=== PATIENT | male | born 1950 | race American Indian/Alaskan Native ===

== ENCOUNTER 2017-02-15 06:55 | Inpatient (IN) | payer MEDICARE, OTHER ==
[2017-02-15] MEDS ORDERED: NACL 0.9% 1000 ML 1,000 ML IV ONE (07:37)
--- NOTE | 2017-02-15 07:37 | XRay Report ---
AP CHEST: HISTORY: Seizure, chest pain No comparison. Mild cardiomegaly is suspected. Normal pulmonary vascularity. The lungs are clear. Normal bony thorax. IMPRESSION: Mild cardiomegaly. Lungs clear.
--- NOTE | 2017-02-15 07:39 | Emergency Department Report ---
ED General Adult HPI - General Chief complaint: Seizure Stated complaint: SEIZURE X2 Time Seen by Provider: 02/15/17 07:16 Source: patient, EMS (verbal report from EMS.ems notes not available at time of chart dictation) Mode of arrival: Stretcher Limitations: Altered Mental Status - History of Present Illness Initial comments: This is a 66-year-old male. He is brought to the hospital by EMS for seizure- like activity. EMS verbally reported that the patient has a history of seizure disorder, but is noncompliant with antiepileptic drugs, or does not have access to antiepileptic drugs. There is no family available at this time. The patient does not know why he is here. He complains of headache and chest pain. There is no midline neck pain. Patient denies shortness of breath, vomiting, diaphoresis, abdominal pain. Patient cannot describe exacerbating or relieving factors. History is limited secondary to patient being altered/postictal. No family available at this time. -: unknown Location: head, chest Quality: other (as per history of present illness) Consistency: other (per history of present illness) Improves with: other (as per history of present illness) Worsens with: other (as per history of present illness) Associated Symptoms: confusion, chest pain, headaches - Related Data Home Medications Medication Instructions Recorded Confirmed Last Taken No Known Home Medications [No 02/15/17 02/15/17 Unknown Reported Home Medications] Allergies Allergy/AdvReac Type Severity Reaction Status Date / Time pork derived (porcine) Allergy Rash Verified 02/15/17 07:26 shellfish derived Allergy Hives Verified 02/15/17 07:26 ED Review of Systems ROS: Stated complaint: SEIZURE X2 Other details as noted in HPI Comment: Unobtainable due to pts medical conditions Cardiovascular: chest pain Neurological: headache, confusion, other (seizure) ED Past Medical Hx - Past Medical History Hx Hypertension: Yes Hx Seizures: Yes Additional medical history: Gout - Surgical History Past Surgical History?: No - Social History Smoking Status: Current Every Day Smoker Substance Use Type: Alcohol - Medications Home Medications: Home Medications Medication Instructions Recorded Confirmed Last Taken Type No Known Home Medications [No 02/15/17 02/15/17 Unknown History Reported Home Medications] ED Physical Exam - General Limitations: Altered Mental Status General appearance: alert, in no apparent distress - Head Head exam: Present: atraumatic, normocephalic - Eye Eye exam: Present: normal appearance, EOMI. Absent: nystagmus - ENT ENT exam: Present: normal exam, normal orophraynx, mucous membranes moist, normal external ear exam - Neck Neck exam: Present: normal inspection, full ROM. Absent: tenderness, meningismus - Respiratory Respiratory exam: Present: normal lung sounds bilaterally. Absent: respiratory distress, wheezes, rales, rhonchi, stridor, chest wall tenderness - Cardiovascular Cardiovascular Exam: Present: regular rate, normal rhythm, normal heart sounds. Absent: bradycardia, tachycardia, irregular rhythm, systolic murmur, diastolic murmur, rubs, gallop - GI/Abdominal GI/Abdominal exam: Present: soft, normal bowel sounds. Absent: distended, tenderness, guarding, rebound, rigid, pulsatile mass - Rectal Rectal exam: Present: deferred - Extremities Exam Extremities exam: Present: normal inspection, full ROM, normal capillary refill. Absent: tenderness, pedal edema, joint swelling, calf tenderness - Back Exam Back exam: Present: normal inspection, full ROM. Absent: tenderness, CVA tenderness (R), CVA tenderness (L), muscle spasm, paraspinal tenderness, vertebral tenderness - Neurological Exam Neurological exam: Present: altered (patient responds to name. Follows commands. Does not know where he is.), other (Extraocular movements intact. Tongue midline. No facial droop. Facial sensation intact to light touch in the V1, V2, V3 distribution bilaterally. 5 and 5 strength in 4 extremities.. Sensation is intact to light touch in 4 extremities.). Absent: motor sensory deficit - Psychiatric Psychiatric exam: Present: normal affect, normal mood - Skin Skin exam: Present: warm, dry, intact, normal color. Absent: rash ED Course Vital Signs 02/15/17 02/15/17 02/15/17 07:22 08:09 08:43 Temperature 98.3 F Pulse Rate 85 88 Respiratory 16 16 16 Rate Blood Pressure 158/100 Blood Pressure 177/85 [Left] O2 Sat by Pulse 98 98 99 Oximetry 02/15/17 02/15/17 02/15/17 09:16 09:20 09:30 Temperature Pulse Rate 62 67 Respiratory 15 16 14 Rate Blood Pressure 212/96 203/96 Blood Pressure [Left] O2 Sat by Pulse 100 Oximetry 02/15/17 02/15/17 09:40 10:00 Temperature Pulse Rate 65 76 Respiratory 14 16 Rate Blood Pressure 203/96 Blood Pressure 189/79 [Left] O2 Sat by Pulse 98 99 Oximetry - Reevaluation(s) Reevaluation #1: 02/15/17 08:03 Differential diagnosis: Intracranial injury, cervical spine injury, postictal state, pneumonia, acute coronary syndrome, pulmonary embolus Assessment and plan: 66-year-old male who is brought to the hospital by EMS for reported seizures, there is no family available at this time, patient is altered , and is unable to give a lucid history. He is alert to name, follows commands. There is no midline cervical spine pain or tenderness. Noncontrast CT scan of the brain and cervical spine are ordered as patient is not clearable clinically. Laboratory studies, EKG, chest x-ray, d-dimer ordered. Patient will be loaded with normal saline and keppra Reevaluation #2: 02/15/17 08:55 D-dimer elevated. Patient still altered. He does not demonstrate the ability to give informed consent. We attempted to contact the patient's family to obtain informed consent for CT scan. Nobody answered the phone, voicemail was left. I have administratively consented the patient for CT angiogram. Reevaluation #3: 02/15/17 10:20 CT scan of the chest is negative. Patient found to be markedly hypertensive with a blood pressure in the 200s. He denies chest pain now, but he is confused. He does not know the day, he does not know the year, he can't recall his name at this time. Patient most likely has a post ictal encephalopathy, possible hypertensive induced encephalopathy. Given numerous abnormalities, altered mental status, altered vital signs/abnormal vital signs, patient will be admitted for further evaluation and management. The case is discussed with the Hospital physician, Dr. Mandujano, who accepts the patient to her service. ED Medical Decision Making - Lab Data Result diagrams: 02/15/17 07:55 02/15/17 07:55 Vital Signs 02/15/17 02/15/17 02/15/17 07:22 08:09 08:43 Temperature 98.3 F Pulse Rate 85 88 Respiratory 16 16 16 Rate Blood Pressure 158/100 Blood Pressure 177/85 [Left] O2 Sat by Pulse 98 98 99 Oximetry 02/15/17 02/15/17 02/15/17 09:16 09:20 09:30 Temperature Pulse Rate 62 67 Respiratory 15 16 14 Rate Blood Pressure 212/96 203/96 Blood Pressure [Left] O2 Sat by Pulse 100 Oximetry 02/15/17 02/15/17 09:40 10:00 Temperature Pulse Rate 65 76 Respiratory 14 16 Rate Blood Pressure 203/96 Blood Pressure 189/79 [Left] O2 Sat by Pulse 98 99 Oximetry Vital Signs 02/15/17 02/15/17 02/15/17 07:22 08:09 08:43 Temperature 98.3 F Pulse Rate 85 88 Respiratory 16 16 16 Rate Blood Pressure 158/100 Blood Pressure 177/85 [Left] O2 Sat by Pulse 98 98 99 Oximetry 02/15/17 02/15/17 02/15/17 09:16 09:20 09:30 Temperature Pulse Rate 62 67 Respiratory 15 16 14 Rate Blood Pressure 212/96 203/96 Blood Pressure [Left] O2 Sat by Pulse 100 Oximetry 02/15/17 02/15/17 09:40 10:00 Temperature Pulse Rate 65 76 Respiratory 14 16 Rate Blood Pressure 203/96 Blood Pressure 189/79 [Left] O2 Sat by Pulse 98 99 Oximetry - EKG Data -: EKG Interpreted by [place] EKG shows normal: sinus rhythm Rate: normal - EKG Data When compared to previous EKG there are: previous EKG unavailable 02/15/17 08:21 normal sinus, 66 bpm, normal intervals, normal axis, motion artifact, not morphologically consistent with STEMI. - Radiology Data Radiology results: report reviewed, image reviewed X-ray of the chest is negative for acute disease CT scan of the brain negative. CT scan of the cervical spine negative. ct angio negative Critical care attestation.: If time is entered above; I have spent that time in minutes in the direct care of this critically ill patient, excluding procedure time. ED Disposition Clinical Impression: Encephalopathy, Hypertensive urgency Disposition: OP ADMITTED IP TO THIS HOSP Is pt being admited?: Yes Does the pt Need Aspirin: Yes Condition: Stable Referrals: PRIMARY CARE,MD [Primary Care Provider] - 3-5 Days
[2017-02-15] MEDS ORDERED: KEPPRA 1,000 MG/NS 0.75% 100ML 1,000 MG/100 ML BAG IV ONE ×2 (07:41→08:42)
[2017-02-15] MEDS: KEPPRA 1,000 MG in D5W 100 ML IV ONE ×2 (08:00→08:43)
[2017-02-15 08:11] LABS: Hematocrit 36.5 % (35.5-45.6); Hemoglobin 11.9 gm/dl (11.8-15.2); Mean Corpuscular HGB Conc 33 % (32-34); Mean Corpuscular Hemoglobin 29 pg (28-32); Mean Corpuscular Volume 90 fl (84-94); Platelet Count 209 K/mm3 (140-440); Red Blood Count 4.07 M/mm3 (3.65-5.03); Red Cell Distribution Width 14.2 % (13.2-15.2); White Blood Count 6.5 K/mm3 (4.5-11.0)
[2017-02-15 08:20] LABS: Urine Drugs of Abuse Note Disclamer
[2017-02-15 08:22] LABS: INR 1.03 (0.87-1.13)
[2017-02-15 08:32] LABS: Alanine Aminotransferase 8 units/L (7-56); Albumin 3.7 g/dL (3.9-5); Albumin/Globulin Ratio 0.9 %; Alkaline Phosphatase 64 units/L (35-129); Anion Gap 21 mmol/L; Bilirubin,Total 0.4 mg/dL (0.1-1.2); Blood Urea Nitrogen 18 mg/dL (9-20); Calcium 9.5 mg/dL (8.4-10.2); Carbon Dioxide 23 mmol/L (22-30); Chloride 96.7 mmol/L (98-107); Creatine Kinase 125 units/L (55-170); Glucose 135 mg/dL (75-100); Potassium 3.4 mmol/L (3.6-5.0); Sodium 137 mmol/L (137-145); Total Protein 7.9 g/dL (6.3-8.2)
[2017-02-15] MEDS ORDERED: NACL ONE (08:44)
[2017-02-15] MEDS ORDERED: K-DUR PO ONE (08:53)
--- NOTE | 2017-02-15 09:10 | Cat Scan Report ---
CT HEAD WITHOUT CONTRAST INDICATION: Seizure, altered mental status. COMPARISON: None similar. FINDINGS: Noncontrast head CT with few images repeated for motion demonstrates fairly symmetric, age-appropriate ventricles and sulci. Mild periventricular small vessel ischemic disease as also small white matter lacunar infarcts/few old ischemic changes, greatest in the left frontal lobe, axial images 23-40, series 2. No definite acute infarct, hemorrhage, mass effect or midline shift. No abnormal extra axial fluid collections. Normal posterior fossa with preserved basilar cisterns. Normal imaged eye globes. Mild bilateral maxillary and right sphenoid sinus mucosal thickening. Clear remainder imaged paranasal sinuses and temporal bone/mastoid air cells, though mastoid tips not well pneumatized. Moderate atherosclerotic internal carotid and vertebral artery calcifications. No significantly depressed skull fractures. A 1 cm heterogeneous frontal bone lesion on the left, axial image 40, series 3 without associated soft tissue component, nonspecific, presumably benign. Normal scalp soft tissues. CONCLUSION: No acute intracranial CT abnormality with few other findings, as above. Thank you for the opportunity to participate in this patient's care.
--- NOTE | 2017-02-15 09:21 | Cat Scan Report ---
CT SCAN OF THE CERVICAL SPINE: HISTORY: Seizure, neck injury after fall. TECHNIQUE: Contiguous 1.25 mm axial images of the cervical spine were obtained. Sagittal and coronal reformatted images. FINDINGS: There is normal alignment of the cervical spine. The body, pedicles and posterior ligaments appear intact. No definite acute evidence of fracture or subluxation is seen. Mild spondylosis is noted. Slightly irregular Schmorl's node along the superior endplate of C7 is noted and appears chronic. The spinal canal appears normal. The prevertebral soft tissues appear normal. IMPRESSION: No acute injury of the cervical spine is appreciated. Mild spondylosis.
--- NOTE | 2017-02-15 09:25 | Cat Scan Report ---
CTA CHEST: History: Chest pain. Technique: Helical CT following IV contrast. Pulmonary embolus protocol. Sagittal and coronal reformatted images. Rotational MIP images. NASCET criteria was utilized where appropriate. Findings: Contrast bolus is satisfactory. No pulmonary embolus is identified. There are mild chronic interstitial changes in both lungs. No evidence for pneumonia, pleural effusion or pneumothorax. No pulmonary nodule or mass. Calcified granuloma in the right lower lobe is noted. The thyroid gland, tracheobronchial tree, esophagus, heart, pericardium, mediastinal vessels, and bony thorax are unremarkable. Subtle chronic T4 compression deformity is suspected. Impression: No pulmonary embolus is identified. No acute cardiopulmonary process.
[2017-02-15 09:55] LABS: Bilirubin,Urine NEG (Negative); Blood,Urine SM (Negative); Ketones,Urine NEG (Negative); Leukocyte Esterase,Urine NEG (Negative); Nitrite,Urine NEG (Negative); Urobilinogen,Urine < 2.0 mg/dL (<2.0)
[2017-02-15] MEDS ORDERED: MAG-OX PO ONE (10:00)
[2017-02-15] MEDS ORDERED: APRESOLINE IV ONE ×2 (10:09→11:06)
[2017-02-15] MEDS ORDERED: BABY ASPIRIN PO ONE (10:23)
--- NOTE | 2017-02-15 10:42 | Admit Criteria Form ---
Admission Criteria Documentation: HYPERTENSION Clinical Indications for Admission to Inpatient Care ( Place "X" for any and all applicable criteria): Admission is indicated for ANY ONE of the following(1)(2)(3)(4): [X ]I. Hypertensive emergency, with evidence of acute and progressing target organ disease as indicated by ANY ONE of the following: [X ]a) Hypertensive encephalopathy (eg, confusion, altered mental status) [ ]b) Cerebral infarction [ ]c) Intracranial hemorrhage [ ]d) Myocardial ischemia or infarction [ ]e) Pulmonary edema [ ]f) Aortic dissection [ ]g) Seizure [ ]h) Acute renal insufficiency [ ]i) Papilledema [ ]j) Microangiopathic hemolytic anemia [ ]II. Adrenergic crisis (eg, severe hypertension due to pheochromocytoma crisis, cocaine or amphetamine intoxication, or clonidine withdrawal) [ ]III. Severe hypertension (SBP greater than 180 mmHg or DBP greater than 110 mmHg or greater than the 95th percentile for age, gender, and height in pediatric patients) that cannot be controlled (eg, to SBP less than 160 mmHg and DBP less than 100 mmHg in adults) by treatment with oral medication in emergency department or observation care Extended stay beyond goal length of stay may be needed for(11)(12)(13): [ ]a) Persistent hypertensive encephalopathy [ ]b) Continuation of pulmonary edema [ ]c) Recurring or persistent severe hypertension [ ]d) Target organ damage (eg, angina, stroke, aortic dissection) [ ]e) Associated renal insufficiency The original [employer] content created by [employer] has been revised. The portions of the content which have been revised are identified through the use of italic text or in bold, and [facility] has neither reviewed nor approved the modified material. All other unmodified content is copyright [employer]. Please see references footnoted in the original [facility] 2016 Admission Criteria Met: Yes
[2017-02-15] MEDS ORDERED: ZESTRIL PO ONE (11:08)
[2017-02-15] MEDS ORDERED: APRESOLINE IV PRN (11:08)
[2017-02-15] MEDS ORDERED: ATIVAN IV PRN (11:11)
[2017-02-15] MEDS ORDERED: ZESTRIL ONE (11:12)
--- NOTE | 2017-02-15 11:17 | History and Physical Report ---
History of Present Illness Date of examination: 02/15/17 Date of admission: 02/15/17 Chief complaint: Witnessed seizure, altered level of consciousness History of present illness: 66-year-old -[place] male patient with significant past medical history of hypertension seizure disorder noncompliant with medications had seizures 2 witnessed by the family with altered level of consciousness Patient was brought to the emergency room noted to be postictal and confused When I evaluated the patient family was at the bedside, they report the patient is noncompliant with all his medications as he cannot afford them They witnessed 2 episodes of seizure with altered level of consciousness, and bladder and bowel incontinence Patient is responding to simple questions Denies any chest pain or shortness of breath, complains of mild headache and dizziness Initial workup revealed malignant hypertension with systolic blood pressures more than 200, received IV antihypertensives with mild improvement Denies any nausea vomiting Denies any fever or urinary symptoms 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 denies: prescription drug abuse Family history: hypertension Medications and Allergies Allergies Allergy/AdvReac Type Severity Reaction Status Date / Time pork derived (porcine) Allergy Rash Verified 02/15/17 07:26 shellfish derived Allergy Hives Verified 02/15/17 07:26 Home Medications Medication Instructions Recorded Confirmed Last Taken Type No Known Home Medications [No 02/15/17 02/15/17 Unknown History Reported Home Medications] Active Meds: Active Medications Hydralazine HCl (Apresoline) 25 mg PO Q8HR TIERRA Hydralazine HCl (Apresoline) 10 mg IV Q4HR PRN PRN Reason: Hypertension Lisinopril (Zestril) 20 mg PO ONCE ONE Stop: 02/15/17 11:09 Lisinopril (Zestril) 20 mg PO QDAY TIERRA Lorazepam (Ativan) 1 mg IV Q4H PRN PRN Reason: Seizures Metoprolol Tartrate (Lopressor) 25 mg PO BID [facility] Review of Systems Constitutional: no weight loss, no weight gain, no fever, no chills Ears, nose, mouth and throat: no nasal congestion, no nasal discharge Cardiovascular: lightheadedness, no chest pain, no orthopnea, no palpitations Gastrointestinal: no abdominal pain, no nausea, no vomiting Genitourinary Male: no dysuria, no hematuria Musculoskeletal: no myalgias, no arthritis Integumentary: no rash, no lesions Neurological: weakness, seizures, confusion Psychiatric: no anxiety, no depression Endocrine: no cold intolerance, no heat intolerance, no polydipsia, no polyuria Hematologic/Lymphatic: no easy bruising, no easy bleeding Allergic/Immunologic: no urticaria, no allergic rhinitis Exam - Constitutional Vitals: Temp Pulse Resp BP Pulse Ox 98.3 F 72 16 207/104 99 02/15/17 07:22 02/15/17 10:28 02/15/17 10:00 02/15/17 10:28 02/15/17 10:00 General appearance: Present: mild distress, well-nourished, obese - EENT Eyes: Present: PERRL, EOM intact - Neck Neck: Present: supple, normal ROM - Respiratory Respiratory effort: normal Respiratory: bilateral: diminished, negative: rales, rhonchi, wheezing - Cardiovascular Rhythm: regular Heart Sounds: Present: S1 & S2 - Extremities Extremities: no ischemia, pulses intact, pulses symmetrical Peripheral Pulses: within normal limits - Abdominal General gastrointestinal: Present: soft, non-tender, non-distended, normal bowel sounds - Integumentary Integumentary: Present: clear, warm - Musculoskeletal Musculoskeletal: strength equal bilaterally - Psychiatric Psychiatric: appropriate mood/affect, other (drowsy) - Neurologic Neurologic: CNII-XII intact, moves all extremities Results - Labs CBC & Chem 7: 02/15/17 07:55 02/15/17 07:55 Labs: Abnormal lab results 02/15/17 02/15/17 02/15/17 Range/Units 07:55 07:55 07:55 D-Dimer 406.16 H (0-234) ng/mlDDU Potassium 3.4 L (3.6-5.0) mmol/L Chloride 96.7 L (98-107) mmol/L Glucose 135 H (75-100) mg/dL Magnesium 1.6 L (1.7-2.3) mg/dL Albumin 3.7 L (3.9-5) g/dL Assessment and Plan --Altered level of consciousness/metabolic encephalopathy Probably secondary to seizures and postictal phase neuro check Seizure precautions -- witnessed seizure Seizure precautions, Ativan as needed, IV Keppra Counseling done patient strongly advised to comply with medications --Malignant hypertension Multiple antihypertensive medications, when necessary hydralazine Closely monitor --Hypokalemia Replenish per protocol and monitor levels --Hypomagnesemia Replenish per protocol and monitor levels --Ongoing tobacco use Smoking cessation counseling done patient advised nicotine patch --DVT prophylaxis With Lovenox With closely monitor the patient and adjust the management as needed Neurology consultation if indicated --Full CODE STATUS Plan of care discussed with the patient family members at the bedside ER physician and the nurse Disposition admitted to telemetry, possible discharge in 1-2 days if stable
[2017-02-15] MEDS ORDERED: ZESTRIL PO NR (12:00)
[2017-02-15] MEDS: APRESOLINE PO SCH ×2 (15:54→21:29)
[2017-02-15] MEDS: LOPRESSOR PO SCH (21:29)
[2017-02-15] MEDS: KEPPRA 1,000 MG in D5W 100 ML IV SCH (22:59)
[2017-02-16] MEDS: APRESOLINE PO SCH ×3 (05:40→21:44)
[2017-02-16 06:32] LABS: Anion Gap 19 mmol/L; BUN/Creatinine Ratio 13.07; Blood Urea Nitrogen 17 mg/dL (9-20); Calcium 9.7 mg/dL (8.4-10.2); Carbon Dioxide 26 mmol/L (22-30); Chloride 101.8 mmol/L (98-107); Glucose 80 mg/dL (75-100); Magnesium 1.8 mg/dL (1.7-2.3); Phosphorous 2.7 mg/dL (2.5-4.5); Potassium 3.6 mmol/L (3.6-5.0); Sodium 143 mmol/L (137-145)
[2017-02-16 06:33] LABS: Basophils % (Auto) 0.7 % (0.0-1.8); Eosinophils % (Auto) 1.7 % (0.0-4.3); Hematocrit 38.8 % (35.5-45.6); Hemoglobin 12.2 gm/dl (11.8-15.2); Mean Corpuscular HGB Conc 32 % (32-34); Mean Corpuscular Hemoglobin 29 pg (28-32); Mean Corpuscular Volume 92 fl (84-94); Platelet Count 218 K/mm3 (140-440); Red Blood Count 4.23 M/mm3 (3.65-5.03); Red Cell Distribution Width 14.6 % (13.2-15.2); White Blood Count 7.1 K/mm3 (4.5-11.0)
[2017-02-16] MEDS: KEPPRA 1,000 MG in D5W 100 ML IV SCH (10:34)
[2017-02-16] MEDS: LOPRESSOR PO SCH ×2 (10:34→21:44)
[2017-02-16] MEDS: ZESTRIL PO SCH (10:35)
[2017-02-16] MEDS: LOVENOX SUB-Q SCH (10:36)
[2017-02-16] MEDS ORDERED: FLUARIX QUAD 2016-2017(36 MOS+) IM ONE (12:00)
[2017-02-16] MEDS ORDERED: PNEUMOVAX 23 IM ONE (12:00)
--- NOTE | 2017-02-16 16:39 | Progress Note ---
Assessment and Plan Assessment and plan: --Altered level of consciousness/metabolic encephalopathy Postictal phase , now completely resolved, back to baseline Seizure precautions -- witnessed seizure Seizure precautions, Ativan as needed, change to by mouth Keppra Counseling done patient strongly advised to comply with medications --Malignant hypertension, well controlled Continue current antihypertensive medications, when necessary hydralazine --Hypokalemia / Hypomagnesemia :corrected --Ongoing tobacco use Smoking cessation counseling done patient advised nicotine patch --DVT prophylaxis, With Lovenox --Full CODE STATUS Plan of care discussed with the patient and his nurse DC planning. Case management Possible discharge in 1-2 days with home health when necessary History Interval history: Patient seen and evaluated medical records reviewed No new events reported by the nursing staff Patient feels better no new episodes of seizures Alert and awake responding appropriately Not in acute distress Hospitalist Physical - Constitutional Vitals: Temp Pulse Resp BP Pulse Ox 98.8 F 66 18 107/71 98 02/16/17 15:21 02/16/17 15:51 02/16/17 15:21 02/16/17 15:21 02/16/17 15:21 General appearance: Present: no acute distress, well-nourished, obese - EENT Eyes: Present: PERRL, EOM intact - Neck Neck: Present: supple, normal ROM - Respiratory Respiratory effort: normal Respiratory: bilateral: diminished, negative: rales, rhonchi, wheezing - Cardiovascular Rhythm: regular Heart Sounds: Present: S1 & S2 - Extremities Extremities: no ischemia, pulses intact, pulses symmetrical Peripheral Pulses: within normal limits - Abdominal General gastrointestinal: soft, non-tender, non-distended, normal bowel sounds - Integumentary Integumentary: Present: clear, warm - Psychiatric Psychiatric: appropriate mood/affect, cooperative - Neurologic Neurologic: CNII-XII intact, moves all extremities Results - Labs CBC & Chem 7: 02/16/17 04:59 02/16/17 04:59 Labs: Laboratory Last Values WBC 7.1 K/mm3 (4.5-11.0) 02/16/17 04:59 RBC 4.23 M/mm3 (3.65-5.03) 02/16/17 04:59 Hgb 12.2 gm/dl (11.8-15.2) 02/16/17 04:59 Hct 38.8 % (35.5-45.6) 02/16/17 04:59 MCV 92 fl (84-94) 02/16/17 04:59 MCH 29 pg (28-32) 02/16/17 04:59 MCHC 32 % (32-34) 02/16/17 04:59 RDW 14.6 % (13.2-15.2) 02/16/17 04:59 Plt Count 218 K/mm3 (140-440) 02/16/17 04:59 Lymph % (Auto) 35.2 % (13.4-35.0) H 02/16/17 04:59 [place] % (Auto) 10.8 % (0.0-7.3) H 02/16/17 04:59 Eos % (Auto) 1.7 % (0.0-4.3) 02/16/17 04:59 Baso % (Auto) 0.7 % (0.0-1.8) 02/16/17 04:59 Lymph # 2.5 K/mm3 (1.2-5.4) 02/16/17 04:59 [place] # 0.8 K/mm3 (0.0-0.8) 02/16/17 04:59 Eos # 0.1 K/mm3 (0.0-0.4) 02/16/17 04:59 Baso # 0.1 K/mm3 (0.0-0.1) 02/16/17 04:59 Seg Neutrophils % 51.6 % (40.0-70.0) 02/16/17 04:59 Seg Neutrophils # 3.7 K/mm3 (1.8-7.7) 02/16/17 04:59 PT 13.4 Sec. (12.2-14.9) 02/15/17 07:55 INR 1.03 (0.87-1.13) 02/15/17 07:55 D-Dimer 406.16 ng/mlDDU (0-234) H 02/15/17 07:55 Sodium 143 mmol/L (137-145) 02/16/17 04:59 Potassium 3.6 mmol/L (3.6-5.0) 02/16/17 04:59 Chloride 101.8 mmol/L (98-107) 02/16/17 04:59 Carbon Dioxide 26 mmol/L (22-30) 02/16/17 04:59 Anion Gap 19 mmol/L 02/16/17 04:59 BUN 17 mg/dL (9-20) 02/16/17 04:59 Creatinine 1.3 mg/dL (0.8-1.5) 02/16/17 04:59 Estimated GFR > 60 ml/min 02/16/17 04:59 BUN/Creatinine Ratio 13.07 % 02/16/17 04:59 Glucose 80 mg/dL (75-100) 02/16/17 04:59 Calcium 9.7 mg/dL (8.4-10.2) 02/16/17 04:59 Phosphorus 2.7 mg/dL (2.5-4.5) 02/16/17 04:59 Magnesium 1.8 mg/dL (1.7-2.3) 02/16/17 04:59 Total Bilirubin 0.4 mg/dL (0.1-1.2) 02/15/17 07:55 AST 22 units/L (5-40) 02/15/17 07:55 ALT 8 units/L (7-56) 02/15/17 07:55 Alkaline Phosphatase 64 units/L (35-129) 02/15/17 07:55 Total Creatine Kinase 125 units/L (55-170) 02/15/17 07:55 Troponin T < 0.010 ng/mL (0.00-0.029) 02/15/17 10:20 Total Protein 7.9 g/dL (6.3-8.2) 02/15/17 07:55 Albumin 3.7 g/dL (3.9-5) L 02/15/17 07:55 Albumin/Globulin Ratio 0.9 % 02/15/17 07:55 Urine Color Yellow (Yellow) 02/15/17 Unknown Urine Turbidity Clear (Clear) 02/15/17 Unknown Urine pH 6.0 (5.0-7.0) 02/15/17 Unknown Ur Specific [place] 1.013 (1.003-1.030) 02/15/17 Unknown Urine Protein 100 mg/dl mg/dL (Negative) 02/15/17 Unknown Urine Glucose (UA) 150 mg/dL (Negative) 02/15/17 Unknown Urine Ketones Neg mg/dL (Negative) 02/15/17 Unknown Urine Blood Sm (Negative) 02/15/17 Unknown Urine Nitrite Neg (Negative) 02/15/17 Unknown Urine Bilirubin Neg (Negative) 02/15/17 Unknown Urine Urobilinogen < 2.0 mg/dL (<2.0) 02/15/17 Unknown Ur Leukocyte Esterase Neg (Negative) 02/15/17 Unknown Urine WBC (Auto) 2.0 /HPF (0.0-6.0) 02/15/17 Unknown Urine RBC (Auto) 1.0 /HPF (0.0-6.0) 02/15/17 Unknown U Epithel Cells (Auto) 2.0 /HPF (0-13.0) 02/15/17 Unknown Urine Opiates Screen Presumptive negative 02/15/17 Unknown Urine Methadone Screen Presumptive negative 02/15/17 Unknown Ur Barbiturates Screen Presumptive negative 02/15/17 Unknown Ur Phencyclidine Scrn Presumptive negative 02/15/17 Unknown Ur Amphetamines Screen Presumptive negative 02/15/17 Unknown U Benzodiazepines Scrn Presumptive negative 02/15/17 Unknown Urine Cocaine Screen Presumptive negative 02/15/17 Unknown U Marijuana (THC) Screen Presumptive negative 02/15/17 Unknown Drugs of Abuse Note Disclamer 02/15/17 Unknown Plasma/Serum Alcohol < 0.01 gm% (0-0.07) 02/15/17 07:55
[2017-02-16] MEDS: KEPPRA PO SCH (21:44)
[2017-02-17] MEDS ORDERED: TYLENOL PO PRN (06:13)
[2017-02-17] MEDS: APRESOLINE PO SCH (06:28)
[2017-02-17 08:34] VITALS: BP 135/100
[2017-02-17] MEDS: KEPPRA PO SCH (10:13)
[2017-02-17] MEDS: LOPRESSOR PO SCH (10:14)
[2017-02-17] MEDS: LOVENOX SUB-Q SCH (10:15)
[2017-02-17] MEDS: ZESTRIL PO SCH (10:16)
--- NOTE | 2017-02-17 10:34 | Discharge Summary ---
Providers - Providers Date of Admission: 02/15/17 12:57 Date of discharge: 02/17/17 Attending physician: BENNIE OLVERA 02/15/17 16:47 Physical Therapy Evaluation and Treat [CONS] Routine Comment: Reason For Exam: altered level of consciousness/resolved Primary care physician: [employer] Hospitalization Reason for admission: witnessed seizure Condition: Stable Pertinent studies: CT head without contrast; no acute intracranial abnormality, incidental findings CT cervical spine; no acute injury, mild spondylosis Chest x-ray; mild cardiomegaly CT chest; no PE Hospital course: 66-year-old -[place] male patient with significant past medical history of hypertension seizure disorder noncompliant with medication had seizures 2 witnessed by the family as well as altered level of consciousness Patient was brought to the emergency room noted to be postictal with confusion, noted to have malignant hypertension systolic blood pressures more than 200 Patient was admitted to the hospital, had extensive evaluation with CT head without contrast CT neck CT angiogram of the chest as well as chest x-ray The above test did not show any acute abnormalities Patient was placed on seizure precautions, started on antiseizure medications As well as multiple antihypertensives, blood pressures closely monitored and medications optimized Symptoms significantly improved, patient did not have any new episodes of seizure or dizziness or syncope, ambulatory and tolerating oral nutrition Patient's blood pressure subfloor to moderate control Today he is comfortable in bed alert awake oriented 3 not in acute distress Vital signs are stable, [id number] evaluation and physical examination done by me prior to discharge is unremarkable as detailed below Has history of ongoing tobacco use smoking cessation counseling done patient strongly advised to quit tobacco use advised nicotine patch as needed Patient advised not to drive or operate heavy machinery as detailed cleared by primary care physician in view of seizure disorder If you should have headache dizziness syncope or seizures advised to contact M.D. or go to emergency room Patient verbalized understanding Final diagnosis; Witnessed seizures 2 Toxic metabolic encephalopathy Hypokalemia and hypomagnesemia corrected Malignant hypertension well-controlled Ongoing tobacco use Obesity Medical noncompliance with medications Disposition: DISCHARGED TO HOME OR SELFCARE Time spent for discharge: 32 min Core Measure Documentation - Palliative Care Palliative Care/ Comfort Measures: Not Applicable - Core Measures Any of the following diagnoses?: none Exam - Constitutional Vitals: Temp Pulse Resp BP Pulse Ox 99.2 F 107 H 20 135/100 98 02/17/17 08:33 02/17/17 08:33 02/17/17 08:33 02/17/17 08:33 02/17/17 08:33 General appearance: Present: no acute distress, well-nourished - EENT Eyes: Present: PERRL, EOM intact - Neck Neck: Present: supple, normal ROM - Respiratory Respiratory effort: normal Respiratory: bilateral: diminished, negative: rales, rhonchi, wheezing - Cardiovascular Rhythm: regular Heart Sounds: Present: S1 & S2 - Extremities Extremities: no ischemia, pulses intact, pulses symmetrical Peripheral Pulses: within normal limits - Abdominal General gastrointestinal: Present: soft, non-tender, non-distended, normal bowel sounds - Integumentary Integumentary: Present: clear, warm - Musculoskeletal Musculoskeletal: strength equal bilaterally - Psychiatric Psychiatric: appropriate mood/affect, cooperative - Neurologic Neurologic: CNII-XII intact, moves all extremities Plan Activity: advance as tolerated, no driving until cleared by PCP, other (seizure precautions) Diet: low salt Additional Instructions: f/u private Neurologist 1-2 weeks Follow up with: PRIMARY CARE, [Primary Care Provider] - 3-5 Days Prescriptions: hydrALAZINE [Apresoline TAB] 25 mg PO Q8HR #90 tablet levETIRAcetam [Keppra TAB] 1,000 mg PO BID #60 tablet Lisinopril [Zestril TAB] 20 mg PO QDAY #30 tablet Metoprolol [Lopressor TAB] 25 mg PO BID #60 tablet
== END 2017-02-17 11:30 | disposition home or self-care (01) | DRG 100 ==
LOC: ED 06:55 → 4A 12:57
PROVIDERS: ADMIT Internal Medicine; ATTEND Internal Medicine
PROC: 3E0234Z Introduction of Serum, Toxoid and Vaccine into Muscle, Percutaneous Approach (ICD-10-PCS; principal; 2017-02-16)
DX: G40.909 Epilepsy, unspecified, not intractable, without status epilepticus (principal); G92 Toxic encephalopathy; I16.0 Hypertensive urgency; M10.9 Gout, unspecified; F17.210 Nicotine dependence, cigarettes, uncomplicated; E87.6 Hypokalemia; E83.42 Hypomagnesemia; E66.9 Obesity, unspecified; Z68.38 Body mass index [BMI] 38.0-38.9, adult; Z23 Encounter for immunization; Z91.14 Patient's other noncompliance with medication regimen; Z91.013 Allergy to seafood; Z91.018 Allergy to other foods; Z82.49 Family history of ischemic heart disease and other diseases of the circulatory system
CPT/HCPCS: 36415; 70450; 71010; 71275; 72125; 80048; 80053; 80307; 80320; 81001; 82550; 83735; 84100; 84484; 85025; 85027; 85379; 85610; 90686; 90732; 93005; 93010; 96361; 96374; 96375; G0480; J0360; J1650; J1953; J7030; Q9967

== ENCOUNTER 2019-03-20 07:33 | Emergency (ER) | payer MEDICARE ==
[2019-03-20] MEDS ORDERED: KEPPRA 1,000 MG/NS 0.75% 100ML 1,000 MG/100 ML BAG IV ONE ×2 (07:40→07:44)
--- NOTE | 2019-03-20 07:46 | Emergency Department Report ---
ED Seizure HPI - General Chief Complaint: Seizure Stated Complaint: CONVULSIONS Time Seen by Provider: 03/20/19 07:40 Source: EMS, old records reviewed Mode of arrival: Stretcher Limitations: Other - History of Present Illness Initial Comments: 68-year-old male with past medical history seizures, hypertension, and gout presents to the hospital status post seizures. Patient had 3 seizures today including seizure after arrival. He did not receive any medications in route to the hospital. History of seizures with med noncompliance since September. Zev rondon is currently post ictal. Daughter provided history over the phone to RN. - Related Data Previous Rx's Medication Instructions Recorded Last Taken Type Lisinopril [Zestril TAB] 20 mg PO QDAY #30 tablet 02/17/17 Unknown Rx Metoprolol [Lopressor TAB] 25 mg PO BID #60 tablet 02/17/17 Unknown Rx Potassium Chloride [K-Dur] 20 meq PO BID #6 tab 03/20/19 Unknown Rx hydrALAZINE [Apresoline TAB] 25 mg PO Q8HR #90 tablet 03/20/19 Unknown Rx levETIRAcetam [Keppra TAB] 1,000 mg PO BID #60 tablet 03/20/19 Unknown Rx Allergies Allergy/AdvReac Type Severity Reaction Status Date / Time pork derived (porcine) Allergy Rash Verified 02/15/17 07:26 shellfish derived Allergy Hives Verified 02/15/17 07:26 ED Review of Systems ROS: Stated complaint: CONVULSIONS Other details as noted in HPI Comment: Unobtainable due to pts medical conditions ED Past Medical Hx - Past Medical History Hx Hypertension: Yes Hx Seizures: Yes Additional medical history: Gout - Social History Smoking Status: Current Every Day Smoker - Medications Home Medications: Home Medications Medication Instructions Recorded Confirmed Last Taken Type Lisinopril [Zestril TAB] 20 mg PO QDAY #30 tablet 02/17/17 Unknown Rx Metoprolol [Lopressor TAB] 25 mg PO BID #60 tablet 02/17/17 Unknown Rx Potassium Chloride [K-Dur] 20 meq PO BID #6 tab 03/20/19 Unknown Rx hydrALAZINE [Apresoline TAB] 25 mg PO Q8HR #90 tablet 03/20/19 Unknown Rx levETIRAcetam [Keppra TAB] 1,000 mg PO BID #60 tablet 03/20/19 Unknown Rx ED Physical Exam - General Limitations: Other - Other Other exam information: General: No limitations, patient is alert in no acute distress Head exam: Atraumatic, normocephalic Eyes exam: Normal appearance, pupils equal reactive to light, extraocular movements intact ENT: Moist mucous membrane, normal oropharynx Neck exam: Normal inspection, full range of motion, no meningismus nontender Respiratory exam: Clear to auscultation bilateral, no wheezes, rales, crackles Cardiovascular: Normal rate and rhythm, normal heart sounds Abdomen: Soft, nondistended, and nontender, with normal bowel sounds, no rebound, or guarding Extremity: Full range of motion normal inspection no deformity Back: Normal Inspection, full range of motion, no tenderness Neurologic: Initially postictal with later became Alert, oriented x3, cranial nerves intact, no motor or sensory deficit Psychiatric: normal affect, normal mood Skin: Warm, dry, intact ED Course Vital Signs 03/20/19 03/20/19 03/20/19 07:38 07:50 07:51 Temperature Pulse Rate 94 H 95 H Respiratory 15 17 Rate Blood Pressure 227/118 O2 Sat by Pulse 97 97 Oximetry 03/20/19 03/20/19 03/20/19 08:01 08:15 08:17 Temperature 98.9 F Pulse Rate 96 H 97 H Respiratory 15 18 Rate Blood Pressure 153/104 153/104 O2 Sat by Pulse 97 94 Oximetry 03/20/19 03/20/19 03/20/19 08:30 08:45 09:00 Temperature Pulse Rate 93 H 89 82 Respiratory 15 13 13 Rate Blood Pressure 188/107 199/112 198/107 O2 Sat by Pulse 96 95 97 Oximetry 03/20/19 03/20/19 03/20/19 09:15 09:30 09:45 Temperature Pulse Rate 93 H 97 H 85 Respiratory 13 15 15 Rate Blood Pressure 194/97 207/108 218/132 O2 Sat by Pulse 93 95 97 Oximetry 03/20/19 03/20/19 03/20/19 10:00 10:15 10:30 Temperature Pulse Rate 84 84 81 Respiratory 14 13 14 Rate Blood Pressure 192/93 192/93 198/103 O2 Sat by Pulse 91 96 98 Oximetry 03/20/19 03/20/19 03/20/19 10:45 11:00 11:15 Temperature Pulse Rate 84 83 85 Respiratory 13 12 13 Rate Blood Pressure 198/103 198/103 198/103 O2 Sat by Pulse 98 96 95 Oximetry 03/20/19 03/20/19 03/20/19 11:30 11:45 12:00 Temperature Pulse Rate 94 H 87 96 H Respiratory 13 13 15 Rate Blood Pressure 198/98 198/98 196/104 O2 Sat by Pulse 98 97 96 Oximetry 03/20/19 03/20/19 03/20/19 12:15 12:30 12:43 Temperature 99.3 F Pulse Rate 95 H 96 H Respiratory 14 18 Rate Blood Pressure 196/104 196/104 O2 Sat by Pulse 97 98 Oximetry 03/20/19 03/20/19 03/20/19 12:46 12:48 13:00 Temperature Pulse Rate 95 H 88 95 H Respiratory 22 21 Rate Blood Pressure 199/94 199/94 202/100 O2 Sat by Pulse 98 95 Oximetry 03/20/19 03/20/19 03/20/19 13:16 13:30 13:57 Temperature Pulse Rate 83 98 H 95 H Respiratory 13 15 16 Rate Blood Pressure 202/100 186/105 186/105 O2 Sat by Pulse 96 97 95 Oximetry 03/20/19 03/20/19 03/20/19 14:00 14:16 14:30 Temperature Pulse Rate 90 90 85 Respiratory 18 17 17 Rate Blood Pressure 210/101 210/101 180/104 O2 Sat by Pulse 95 97 98 Oximetry 03/20/19 03/20/19 14:46 15:00 Temperature Pulse Rate 87 97 H Respiratory 14 22 Rate Blood Pressure 180/104 174/89 O2 Sat by Pulse 97 96 Oximetry - Reevaluation(s) Reevaluation #1: 03/20/19 12:46 Family members at the bedside. Patient alert. Currently at baseline mental status as per family. Now complains of abdominal pain since seizure. No reports of nausea vomiting. Initial anion gap noted which could be blood gases secondary to seizures. Additional labs ordered including alcohol and lactic acid. CT abdomen and pelvis pending. ED Medical Decision Making - Lab Data Result diagrams: 03/20/19 07:47 03/20/19 12:46 Lab Results 03/20/19 03/20/19 03/20/19 Range/Units 07:47 07:47 12:46 WBC 8.5 (4.5-11.0) K/mm3 RBC 3.40 L (3.65-5.03) M/mm3 Hgb 10.3 L (11.8-15.2) gm/dl Hct 32.6 L (35.5-45.6) % MCV 96 H (84-94) fl MCH 30 (28-32) pg MCHC 32 (32-34) % RDW 16.7 H (13.2-15.2) % Plt Count 225 (140-440) K/mm3 Lymph % (Auto) 9.6 L (13.4-35.0) % [place] % (Auto) 3.7 (0.0-7.3) % Eos % (Auto) 0.0 (0.0-4.3) % Baso % (Auto) 0.7 (0.0-1.8) % Lymph # 0.8 L (1.2-5.4) K/mm3 [place] # 0.3 (0.0-0.8) K/mm3 Eos # 0.0 (0.0-0.4) K/mm3 Baso # 0.1 (0.0-0.1) K/mm3 Seg Neutrophils % 86.0 H (40.0-70.0) % Seg Neutrophils # 7.3 (1.8-7.7) K/mm3 Sodium 143 141 (137-145) mmol/L Potassium 3.5 L 3.1 L (3.6-5.0) mmol/L Chloride 97.8 L 97.9 L (98-107) mmol/L Carbon Dioxide 15 L 26 D (22-30) mmol/L Anion Gap 34 20 mmol/L BUN 15 12 (9-20) mg/dL Creatinine 1.1 0.8 (0.8-1.5) mg/dL Estimated GFR > 60 > 60 ml/min BUN/Creatinine Ratio 14 15 % Glucose 206 H 92 (75-100) mg/dL Lactic Acid (0.7-2.0) mmol/L Calcium 8.8 8.7 (8.4-10.2) mg/dL Magnesium 1.20 L (1.7-2.3) mg/dL Total Bilirubin 0.50 (0.1-1.2) mg/dL Direct Bilirubin < 0.2 (0-0.2) mg/dL Indirect Bilirubin 0.3 mg/dL AST 41 H (5-40) units/L ALT 10 (7-56) units/L Alkaline Phosphatase 67 (35-129) units/L Total Protein 8.7 H (6.3-8.2) g/dL Albumin 3.9 (3.9-5) g/dL Albumin/Globulin Ratio 0.8 % Lipase 33 (13-60) units/L Urine Color (Yellow) Urine Turbidity (Clear) Urine pH (5.0-7.0) Ur Specific [place] (1.003-1.030) Urine Protein (Negative) mg/dL Urine Glucose (UA) (Negative) mg/dL Urine Ketones (Negative) mg/dL Urine Blood (Negative) Urine Nitrite (Negative) Urine Bilirubin (Negative) Urine Urobilinogen (<2.0) mg/dL Ur Leukocyte Esterase (Negative) Urine WBC (Auto) (0.0-6.0) /HPF Urine RBC (Auto) (0.0-6.0) /HPF U Epithel Cells (Auto) (0-13.0) /HPF Urine Opiates Screen Urine Methadone Screen Ur Barbiturates Screen Ur Phencyclidine Scrn Ur Amphetamines Screen U Benzodiazepines Scrn Urine Cocaine Screen U Marijuana (THC) Screen Drugs of Abuse Note Plasma/Serum Alcohol (0-0.07) % 03/20/19 03/20/19 03/20/19 Range/Units 12:54 12:54 Unknown WBC (4.5-11.0) K/mm3 RBC (3.65-5.03) M/mm3 Hgb (11.8-15.2) gm/dl Hct (35.5-45.6) % MCV (84-94) fl MCH (28-32) pg MCHC (32-34) % RDW (13.2-15.2) % Plt Count (140-440) K/mm3 Lymph % (Auto) (13.4-35.0) % [place] % (Auto) (0.0-7.3) % Eos % (Auto) (0.0-4.3) % Baso % (Auto) (0.0-1.8) % Lymph # (1.2-5.4) K/mm3 [place] # (0.0-0.8) K/mm3 Eos # (0.0-0.4) K/mm3 Baso # (0.0-0.1) K/mm3 Seg Neutrophils % (40.0-70.0) % Seg Neutrophils # (1.8-7.7) K/mm3 Sodium (137-145) mmol/L Potassium (3.6-5.0) mmol/L Chloride (98-107) mmol/L Carbon Dioxide (22-30) mmol/L Anion Gap mmol/L BUN (9-20) mg/dL Creatinine (0.8-1.5) mg/dL Estimated GFR ml/min BUN/Creatinine Ratio % Glucose (75-100) mg/dL Lactic Acid 1.40 (0.7-2.0) mmol/L Calcium (8.4-10.2) mg/dL Magnesium (1.7-2.3) mg/dL Total Bilirubin (0.1-1.2) mg/dL Direct Bilirubin (0-0.2) mg/dL Indirect Bilirubin mg/dL AST (5-40) units/L ALT (7-56) units/L Alkaline Phosphatase (35-129) units/L Total Protein (6.3-8.2) g/dL Albumin (3.9-5) g/dL Albumin/Globulin Ratio % Lipase (13-60) units/L Urine Color Straw (Yellow) Urine Turbidity Clear (Clear) Urine pH 7.0 (5.0-7.0) Ur Specific [place] 1.009 (1.003-1.030) Urine Protein 100 mg/dl (Negative) mg/dL Urine Glucose (UA) 50 (Negative) mg/dL Urine Ketones Neg (Negative) mg/dL Urine Blood Mod (Negative) Urine Nitrite Neg (Negative) Urine Bilirubin Neg (Negative) Urine Urobilinogen < 2.0 (<2.0) mg/dL Ur Leukocyte Esterase Neg (Negative) Urine WBC (Auto) < 1.0 (0.0-6.0) /HPF Urine RBC (Auto) < 1.0 (0.0-6.0) /HPF U Epithel Cells (Auto) < 1.0 (0-13.0) /HPF Urine Opiates Screen Urine Methadone Screen Ur Barbiturates Screen Ur Phencyclidine Scrn Ur Amphetamines Screen U Benzodiazepines Scrn Urine Cocaine Screen U Marijuana (THC) Screen Drugs of Abuse Note Plasma/Serum Alcohol < 0.01 (0-0.07) % 03/20/19 Range/Units Unknown WBC (4.5-11.0) K/mm3 RBC (3.65-5.03) M/mm3 Hgb (11.8-15.2) gm/dl Hct (35.5-45.6) % MCV (84-94) fl MCH (28-32) pg MCHC (32-34) % RDW (13.2-15.2) % Plt Count (140-440) K/mm3 Lymph % (Auto) (13.4-35.0) % [place] % (Auto) (0.0-7.3) % Eos % (Auto) (0.0-4.3) % Baso % (Auto) (0.0-1.8) % Lymph # (1.2-5.4) K/mm3 [place] # (0.0-0.8) K/mm3 Eos # (0.0-0.4) K/mm3 Baso # (0.0-0.1) K/mm3 Seg Neutrophils % (40.0-70.0) % Seg Neutrophils # (1.8-7.7) K/mm3 Sodium (137-145) mmol/L Potassium (3.6-5.0) mmol/L Chloride (98-107) mmol/L Carbon Dioxide (22-30) mmol/L Anion Gap mmol/L BUN (9-20) mg/dL Creatinine (0.8-1.5) mg/dL Estimated GFR ml/min BUN/Creatinine Ratio % Glucose (75-100) mg/dL Lactic Acid (0.7-2.0) mmol/L Calcium (8.4-10.2) mg/dL Magnesium (1.7-2.3) mg/dL Total Bilirubin (0.1-1.2) mg/dL Direct Bilirubin (0-0.2) mg/dL Indirect Bilirubin mg/dL AST (5-40) units/L ALT (7-56) units/L Alkaline Phosphatase (35-129) units/L Total Protein (6.3-8.2) g/dL Albumin (3.9-5) g/dL Albumin/Globulin Ratio % Lipase (13-60) units/L Urine Color (Yellow) Urine Turbidity (Clear) Urine pH (5.0-7.0) Ur Specific [place] (1.003-1.030) Urine Protein (Negative) mg/dL Urine Glucose (UA) (Negative) mg/dL Urine Ketones (Negative) mg/dL Urine Blood (Negative) Urine Nitrite (Negative) Urine Bilirubin (Negative) Urine Urobilinogen (<2.0) mg/dL Ur Leukocyte Esterase (Negative) Urine WBC (Auto) (0.0-6.0) /HPF Urine RBC (Auto) (0.0-6.0) /HPF U Epithel Cells (Auto) (0-13.0) /HPF Urine Opiates Screen Presumptive negative Urine Methadone Screen Presumptive negative Ur Barbiturates Screen Presumptive negative Ur Phencyclidine Scrn Presumptive negative Ur Amphetamines Screen Presumptive negative U Benzodiazepines Scrn Presumptive negative Urine Cocaine Screen Presumptive negative U Marijuana (THC) Screen Presumptive negative Drugs of Abuse Note Disclamer Plasma/Serum Alcohol (0-0.07) % - Radiology Data Radiology results: report reviewed PROCEDURE: CT CHEST ABDOMEN PELVIS W CON TECHNIQUE: CTs of chest, abdomen and pelvis performed. IV contrast was administered. No oral contrast was a dministered. HISTORY: abd pain after seizure COMPARISON: None FINDINGS: There are coronary artery calcifications. There is no abnormal mediastinal or hilar mass seen. There is no pleural effusion seen. There is no pneumothorax seen. Grossly lungs are clear but limited evaluation limited due to breathing motion. Abdominal images are limited due to breathing motion as well. There is also some artifact emanating from the arms which are not raised above the head for exam. The visualized liver, spleen, pancreas, adrenal glands and kidneys demonstrate no significant abnormality. There is no abdominal aortic aneurysm. There is no evidence for intestinal obstruction. The appendix is normal. There is no abnormal fluid collection seen. There is no free intraperitoneal air. Bladder is unremarkable. There is no abnormal pelvic fluid collection or mass seen. IMPRESSION: Images are limited by motion artifact. Grossly no acute abnormality seen. - Medical Decision Making Patient at baseline mental status. Pt received Keppra load in the ED. Patient received IV magnesium and by mouth potassium mild electrolyte abnormalities. Clonidine provided for blood pressure with improvement. Initial anion gap acidosis improved likely secondary to post seizure lactic acid. CT abdomen and pelvis unremarkable. Patient will prescribed blood pressure medication and s eizure medication and follow-up advised. Patient was prescribed hydralazine, metoprolol, and lisinopril upon discharge and 2016 when he presented with seizures. I will restart hydralazine only and encourage follow-up for further medication adjustment - Differential Diagnosis seizure, noncompliance, electrolyte abnormality Critical Care Time: No Critical care attestation.: If time is entered above; I have spent that time in minutes in the direct care of this critically ill patient, excluding procedure time. ED Disposition Clinical Impression: Seizure, Uncontrolled hypertension, Noncompliance with medication regimen, Hypokalemia, Hypomagnesemia, Abdominal pain Disposition: TO HOME OR SELFCARE Is pt being admited?: No Does the pt Need Aspirin: No Condition: Stable Instructions: Hypokalemia (ED), Hypertension (ED), Hypomagnesemia (ED), Recurrent Seizures Adult (ED) Additional Instructions: Take the medication as prescribed. Follow up with your doctor or the clinic/doctor provided. Return if symptoms worsen as indicated by your discharge instruction. Take Motrin or Tylenol as needed for pain. Prescriptions: hydrALAZINE [Apresoline TAB] 25 mg PO Q8HR #90 tablet Potassium Chloride [K-Dur] 20 meq PO BID #6 tab levETIRAcetam [Keppra TAB] 1,000 mg PO BID #60 tablet Referrals: LILO SMITHRAEFORD MD SY [Primary Care Provider] - 3-5 Days MIKE WORLEY MD [Staff Physician] - 3-5 Days (Neurologist) Time of Disposition: 15:48
[2019-03-20 08:00] LABS: Basophils # (Auto) 0.1 K/mm3 (0.0-0.1); Basophils % (Auto) 0.7 % (0.0-1.8); Hematocrit 32.6 % (35.5-45.6); Hemoglobin 10.3 gm/dl (11.8-15.2); Lymphocytes # (Auto) 0.8 K/mm3 (1.2-5.4); Lymphocytes % (Auto) 9.6 % (13.4-35.0); Mean Corpuscular HGB Conc 32 % (32-34); Mean Corpuscular Volume 96 fl (84-94); Monocytes # (Auto) 0.3 K/mm3 (0.0-0.8); Monocytes % (Auto) 3.7 % (0.0-7.3); Platelet Count 225 K/mm3 (140-440); Red Cell Distribution Width 16.7 % (13.2-15.2)
[2019-03-20 08:23] LABS: BUN/Creatinine Ratio 14; Blood Urea Nitrogen 15 mg/dL (9-20); Calcium 8.8 mg/dL (8.4-10.2); Hemolysis Index 5
[2019-03-20] MEDS ORDERED: NACL 0.9% 1000 ML 1,000 ML IV ONE (08:53)
[2019-03-20] MEDS ORDERED: MAGNESIUM SULFATE 2GM/50ML 2 GM/50 ML BAG IV ONE (08:54)
[2019-03-20 11:10] LABS: Bilirubin,Urine NEG (Negative); Blood,Urine MOD (Negative); Color,Urine Straw (Yellow); Urobilinogen,Urine < 2.0 mg/dL (<2.0)
[2019-03-20 11:11] LABS: RBC,Urine < 1.0 /HPF (0.0-6.0); WBC,Urine < 1.0 /HPF (0.0-6.0)
[2019-03-20 11:16] LABS: Amphetamine Screen,Urine PRESUMPTIVE NEGATIVE; Benzodiazepines Screen,Urine PRESUMPTIVE NEGATIVE; Cannabinoid Screen,Urine PRESUMPTIVE NEGATIVE; Cocaine Screen,Urine PRESUMPTIVE NEGATIVE; Methadone Screen,Urine PRESUMPTIVE NEGATIVE; Opiate Screen,Urine PRESUMPTIVE NEGATIVE
[2019-03-20] MEDS ORDERED: K-DUR PO ONE ×2 (12:40→13:30)
[2019-03-20] MEDS ORDERED: CATAPRES PO ONE (12:44)
[2019-03-20 13:22] LABS: Alanine Aminotransferase 10 units/L (7-56); Albumin 3.9 g/dL (3.9-5); BUN/Creatinine Ratio 15; Blood Urea Nitrogen 12 mg/dL (9-20); Calcium 8.7 mg/dL (8.4-10.2); Hemolysis Index 46
[2019-03-20 13:25] LABS: Bilirubin,Direct < 0.2 mg/dL (0-0.2)
[2019-03-20] MEDS ORDERED: TORADOL IV ONE (14:37)
--- NOTE | 2019-03-20 15:35 | Cat Scan Report ---
PROCEDURE: CT CHEST ABDOMEN PELVIS W CON TECHNIQUE: CTs of chest, abdomen and pelvis performed. IV contrast was administered. No oral contras t was administered. HISTORY: abd pain after seizure COMPARISON: None FINDINGS: There are coronary artery calcifications. There is no abnormal mediastinal or hilar mass seen. There is no pleural effusion seen. There is no pneumothorax seen. Grossly lungs are clear but limited evaluation limited due to breathing motion. Abdominal images are limited due to breathing motion as well. There is also some artifact emanating f rom the arms which are not raised above the head for exam. The visualized liver, spleen, pancreas, adrenal glands and kidneys demonstrate no significant abnorma lity. There is no abdominal aortic aneurysm. There is no evidence for intestinal obstruction. The appendix is normal. There is no abnormal fluid collection seen. There is no free intraperitoneal air. Bladder is unremarkable. There is no abnormal pelvic fluid collection or mass seen. IMPRESSION: Images are limited by motion artifact. Grossly no acute abnormality seen. This document is electronically signed by Ximena Lake MD., Mar 20 2019 03:33:52 PM ET
[2019-03-20 16:11] VITALS: BP 173/99
== END 2019-03-20 18:36 | disposition home or self-care (01) ==
LOC: ED 07:33
DX: R56.9 Unspecified convulsions (principal); E87.6 Hypokalemia; E83.42 Hypomagnesemia; I10 Essential (primary) hypertension; R10.9 Unspecified abdominal pain; M10.9 Gout, unspecified; F17.200 Nicotine dependence, unspecified, uncomplicated; Z79.899 Other long term (current) drug therapy; Z91.018 Allergy to other foods; Z91.013 Allergy to seafood
CPT/HCPCS: 36415; 74177; 80048; 80076; 80307; 81001; 82140; 83690; 83735; 85025; 96365; 96366; 96367; 96375; 99285; G0480; J1885; J1953; J3475; J7030; Q9967; 80320

== ENCOUNTER 2019-04-06 11:05 | Emergency (ER) | payer MEDICARE ==
[2019-04-06] MEDS ORDERED: SUBLIMAZE IV ONE (11:44)
--- NOTE | 2019-04-06 11:49 | Emergency Department Report ---
ED General Adult HPI - General Chief complaint: Back Pain/Injury Stated complaint: ABD/BACK PAIN Time Seen by Provider: 04/06/19 11:31 Source: patient, EMS (ems notes not available at time of chart dictation), RN notes reviewed, old records reviewed Mode of arrival: Stretcher Limitations: Physical Limitation - History of Present Illness Initial comments: This is a 68-year-old gentleman. I have evaluated this patient in the past. His past medical history includes possible seizure disorder, hypertension, hypomagnesemia Patient recently admitted to this hospital for presumed toxic metabolic encephalopathy, malignant hypertension, medication noncompliance, seizure 2. He also recently had a CT scan of the abdomen and pelvis at this facility, which was found to be unremarkable. He had a CT scan of the chest to evaluate for pulmonary embolus recently, which was found to be unremarkable. Today, the patient is brought to the hospital by emergency medical services with a complaint of nontraumatic right-sided hip pain. This is associated with reported right proximal extremity weakness. He denies bladder or bowel retention. He reports no incontinence per se, but reports he is not able to get to the bathroom on time, when experiencing a sensation of needing to urinate, and therefore has accidentally urinated on himself. He denies back pain. He denies headache, neck pain, chest pain, abdominal pain, new or different shortness of breath. He does not have left lower extremity symptoms. He does not have saddle anesthesia. He denies testicular pain. He reports his pain has been going on for the past day or so, increases with pal pation, decreases with rest. -: Gradual Location: right, lower extremity Radiation: non-radiation Quality: burning, aching Consistency: constant Improves with: rest Worsens with: movement - Related Data Previous Rx's Medication Instructions Recorded Last Taken Type Lisinopril [Zestril TAB] 20 mg PO QDAY #30 tablet 02/17/17 Unknown Rx Metoprolol [Lopressor TAB] 25 mg PO BID #60 tablet 02/17/17 Unknown Rx Potassium Chloride [K-Dur] 20 meq PO BID #6 tab 03/20/19 Unknown Rx hydrALAZINE [Apresoline TAB] 25 mg PO Q8HR #90 tablet 03/20/19 Unknown Rx levETIRAcetam [Keppra TAB] 1,000 mg PO BID #60 tablet 03/20/19 Unknown Rx Acetaminophen [Non-Aspirin Extra 500 mg PO Q6HR PRN #30 tablet 04/06/19 Unknown Rx Strength] Ibuprofen [Motrin] 600 mg PO Q8H PRN #30 tablet 04/06/19 Unknown Rx Magnesium Oxide 500 mg PO BID #20 capsule 04/06/19 Unknown Rx Allergies Allergy/AdvReac Type Severity Reaction Status Date / Time pork derived (porcine) Allergy Rash Verified 02/15/17 07:26 shellfish derived Allergy Hives Verified 02/15/17 07:26 ED Review of Systems ROS: Stated complaint: ABD/BACK PAIN Other details as noted in HPI Constitutional: denies: fever Eyes: denies: eye discharge ENT: denies: epistaxis Respiratory: denies: cough Cardiovascular: denies: chest pain Gastrointestinal: denies: abdominal pain Genitourinary: denies: dysuria Musculoskeletal: arthralgia, myalgia. denies: back pain Neurological: weakness. denies: numbness, paresthesias Psychiatric: anxiety ED Past Medical Hx - Past Medical History Hx Hypertension: Yes Hx Seizures: Yes Additional medical history: Gout - Surgical History Past Surgical History?: No - Social History Smoking Status: Never Smoker Substance Use Type: Alcohol - Medications Home Medications: Home Medications Medication Instructions Recorded Confirmed Last Taken Type Lisinopril [Zestril TAB] 20 mg PO QDAY #30 tablet 02/17/17 Unknown Rx Metoprolol [Lopressor TAB] 25 mg PO BID #60 tablet 02/17/17 Unknown Rx Potassium Chloride [K-Dur] 20 meq PO BID #6 tab 03/20/19 Unknown Rx hydrALAZINE [Apresoline TAB] 25 mg PO Q8HR #90 tablet 03/20/19 Unknown Rx levETIRAcetam [Keppra TAB] 1,000 mg PO BID #60 tablet 03/20/19 Unknown Rx Acetaminophen [Non-Aspirin Extra 500 mg PO Q6HR PRN #30 tablet 04/06/19 Unknown Rx Strength] Ibuprofen [Motrin] 600 mg PO Q8H PRN #30 tablet 04/06/19 Unknown Rx Magnesium Oxide 500 mg PO BID #20 capsule 04/06/19 Unknown Rx ED Physical Exam - General Limitations: Physical Limitation General appearance: alert, in no apparent distress - Head Head exam: Present: atraumatic, normocephalic - Eye Eye exam: Present: normal appearance, EOMI. Absent: nystagmus - ENT ENT exam: Present: normal exam, normal orophraynx, mucous membranes moist, normal external ear exam - Neck Neck exam: Present: normal inspection, full ROM. Absent: tenderness, meningismus - Respiratory Respiratory exam: Present: normal lung sounds bilaterally. Absent: respiratory distress - Cardiovascular Cardiovascular Exam: Present: regular rate, normal rhythm, normal heart sounds. Absent: bradycardia, tachycardia, irregular rhythm, systolic murmur, diastolic murmur, rubs, gallop - GI/Abdominal GI/Abdominal exam: Present: soft. Absent: distended, tenderness, guarding, rebound, rigid, pulsatile mass - Rectal Rectal exam: Present: normal inspection, normal rectal tone, other (chaperoned by MONIE Thakur). Absent: bloody stool - Extremities Exam Extremities exam: Present: normal inspection, full ROM (as for range of motion o n the bilateral upper extremities. There is full range of motion of the left lower extremity. The right lower extremity, range of motion in the right hip appears to be limited secondary to pain. However, when the hip is supported, the patient has 5 out of 5 strength in the bilateral knees, and in dorsi and plantar flexion. Sensation is intact to light touch, pinch, proprioception in the bilateral lower extremities. There are downgoing plantar reflexes bilaterally.), tenderness (there is proximal right iliac crest tenderness.), other (2+ pulses noted in the bilateral upper, lower extremities. Compartments soft. No long bony tenderness. The pelvis is stable.) - Back Exam Back exam: Present: normal inspection - Neurological Exam Neurological exam: Present: alert, oriented X3, other (2+ pulses noted in the bilateral upper, lower extremities. Compartments soft. No long bony tenderness. The pelvis is stable. Patient has decreased flexion in the proximal right thigh. There may be a pain component to this.) - Psychiatric Psychiatric exam: Present: normal affect, normal mood - Skin Skin exam: Present: warm, dry, intact, normal color. Absent: rash ED Course Vital Signs 04/06/19 04/06/19 04/06/19 11:10 13:43 13:45 Temperature 98.9 F Pulse Rate 76 Respiratory 18 Rate Blood Pressure 182/102 170/91 180/102 O2 Sat by Pulse 98 98 98 Oximetry 04/06/19 04/06/19 04/06/19 14:00 14:15 14:35 Temperature Pulse Rate 78 74 73 Respiratory 12 12 Rate Blood Pressure 146/80 146/80 180/102 O2 Sat by Pulse Oximetry 04/06/19 14:45 Temperature Pulse Rate 72 Respiratory 16 Rate Blood Pressure 204/105 O2 Sat by Pulse Oximetry - Reevaluation(s) Reevaluation #1: 04/06/19 13:06 Differential diagnosis, including but not limited to: Peripheral radiculopathy, acute cord syndrome, transverse myelitis, tethered cord, cord compression Assessment and plan: 68-year-old gentleman with proximal right thigh pain, weakness. Clinically doubt cord compression. Distally, he has appropriate strength and sensation in his bilateral lower extremities, he has intact rectal tone, and no saddle anesthesia. He does not have any abdominal tenderness. The patient denies back pain to this provider. Contacted neurology on-call, Dr. Pina, who did recommend emergent acquisition of MR of the thoracic and lumbar spine to exclude cord injury, although we both clinically feel that an acute cord syndrome is unlikely. Incidental laboratory abnormalities have demonstrated mild hypoglycemia, and hypomagnesemia. We will treat these as well. We will treat his pain. We will reassess after data points. Reevaluation #2: 04/06/19 14:53 Patient resting comfortably, and in no acute distress. MRI interpretation is reviewed and appreciated. I have gone back and specifically discussed the interpretation with the interpreting radiologist, Dr. Abbe Herman. He informed me that for the purposes of excluding cord compression, the study is diagnostically accurate and reliable. He also states that he does not see any significant nerve impingement from the neural foramina. Reevaluation #3: 04/06/19 15:55 X-ray of the pelvis, x-ray of the femur showed DJD, no fracture, no dislocation. Elevated blood pressure reviewed and appreciated. Hydralazine ordered. This is a chronic condition. Patient resting comfortable, and in no acute distress. Reevaluation #4: 04/06/19 16:17 Range of motion much improved in the right hip after pain medication. Blood pressure 170s over 80s. Patient feels much improved. At this point in time, does not appear to have any focal deficits. Suspect arthritis and pain as likely etiologic agent and contributing factor to the patient's presentation. Extensive discussion had with patient unrealistic expectations and natural history of right-sided hip arthritis. He will need to follow up with an outpatient primary care doctor, orthopedist for physical therapy, and consideration for outpatient joint replacement. He can continue his current outpatient blood pressure medications. manager resource consult was ordered to assist with home physical therapy. ED Medical Decision Making - Lab Data Result diagrams: 04/06/19 Unknown 04/06/19 Unknown Vital Signs 04/06/19 11:10 Temperature 98.9 F Pulse Rate 76 Respiratory 18 Rate Blood Pressure 182/102 O2 Sat by Pulse 98 Oximetry Lab Results 04/06/19 04/06/19 04/06/19 Range/Units 11:54 Unknown Unknown WBC 8.9 (4.5-11.0) K/mm3 RBC 3.96 (3.65-5.03) M/mm3 Hgb 11.7 L (11.8-15.2) gm/dl Hct 36.5 (35.5-45.6) % MCV 92 (84-94) fl MCH 30 (28-32) pg MCHC 32 (32-34) % RDW 16.4 H (13.2-15.2) % Plt Count 273 (140-440) K/mm3 Lymph % (Auto) 11.9 L (13.4-35.0) % Dupage % (Auto) 12.4 H (0.0-7.3) % Eos % (Auto) 0.1 (0.0-4.3) % Baso % (Auto) 1.2 (0.0-1.8) % Lymph # 1.1 L (1.2-5.4) K/mm3 Dupage # 1.1 H (0.0-0.8) K/mm3 Eos # 0.0 (0.0-0.4) K/mm3 Baso # 0.1 (0.0-0.1) K/mm3 Seg Neutrophils % 74.4 H (40.0-70.0) % Seg Neutrophils # 6.6 (1.8-7.7) K/mm3 PT 14.3 (12.2-14.9) Sec. INR 1.05 (0.87-1.13) APTT 32.2 (24.2-36.6) Sec. Thrombin Time 14.9 L (15.1-19.6) Sec. Sodium (137-145) mmol/L Potassium (3.6-5.0) mmol/L Chloride (98-107) mmol/L Carbon Dioxide (22-30) mmol/L Anion Gap mmol/L BUN (9-20) mg/dL Creatinine (0.8-1.5) mg/dL Estimated GFR ml/min BUN/Creatinine Ratio % Glucose (75-100) mg/dL POC Glucose 69 L (70-105) Calcium (8.4-10.2) mg/dL Magnesium (1.7-2.3) mg/dL Total Bilirubin (0.1-1.2) mg/dL Alkaline Phosphatase (35-129) units/L Total Creatine Kinase (55-170) units/L CK-MB (CK-2) (0.0-4.0) ng/mL CK-MB (CK-2) Rel Index (0-4) Troponin T (0.00-0.029) ng/mL Total Protein (6.3-8.2) g/dL Albumin (3.9-5) g/dL Albumin/Globulin Ratio % 04/06/19 04/06/19 Range/Units Unknown Unknown WBC (4.5-11.0) K/mm3 RBC (3.65-5.03) M/mm3 Hgb (11.8-15.2) gm/dl Hct (35.5-45.6) % MCV (84-94) fl MCH (28-32) pg MCHC (32-34) % RDW (13.2-15.2) % Plt Count (140-440) K/mm3 Lymph % (Auto) (13.4-35.0) % Dupage % (Auto) (0.0-7.3) % Eos % (Auto) (0.0-4.3) % Baso % (Auto) (0.0-1.8) % Lymph # (1.2-5.4) K/mm3 Dupage # (0.0-0.8) K/mm3 Eos # (0.0-0.4) K/mm3 Baso # (0.0-0.1) K/mm3 Seg Neutrophils % (40.0-70.0) % Seg Neutrophils # (1.8-7.7) K/mm3 PT (12.2-14.9) Sec. INR (0.87-1.13) APTT (24.2-36.6) Sec. Thrombin Time (15.1-19.6) Sec. Sodium 138 (137-145) mmol/L Potassium 4.3 (3.6-5.0) mmol/L Chloride 100.2 (98-107) mmol/L Carbon Dioxide 21 L (22-30) mmol/L Anion Gap 21 mmol/L BUN 20 (9-20) mg/dL Creatinine 1.0 (0.8-1.5) mg/dL Estimated GFR > 60 ml/min BUN/Creatinine Ratio 20 % Glucose 75 (75-100) mg/dL POC Glucose (70-105) Calcium 9.3 (8.4-10.2) mg/dL Magnesium 1.30 L (1.7-2.3) mg/dL Total Bilirubin 0.80 (0.1-1.2) mg/dL Alkaline Phosphatase 95 (35-129) units/L Total Creatine Kinase 98 (55-170) units/L CK-MB (CK-2) 1.6 (0.0-4.0) ng/mL CK-MB (CK-2) Rel Index 1.6 (0-4) Troponin T < 0.010 (0.00-0.029) ng/mL Total Protein 9.6 H (6.3-8.2) g/dL Albumin 3.8 L (3.9-5) g/dL Albumin/Globulin Ratio 0.7 % - EKG Data -: EKG Interpreted by Hi EKG shows normal: sinus rhythm Rate: normal - EKG Data 04/06/19 13:08 This is a normal sinus rhythm, 71 bpm, normal axis, normal intervals, borderline left ventricular hypertrophy, not having chest pain, this is an abnormal EKG. It is not consistent with ST elevation myocardial infarction. - Radiology Data Radiology results: pending, report reviewed, image reviewed Print Report Referring Physician: JEFF BROWN Patient Name: JASPREET PASTRANA Date of : 1950 Sex: Male Report Date: 2019-04-06 Report Status: Finalized Findings [facility] [address] [place] [address] Magnetic Resonance Report Signed Patient: JASPREET PASTRANA MR#: [id number] : 1950 Acct:[id number] Age/Sex: 68 / M ADM Date: 04/06/19 Loc: ED Attending Dr: Ordering Physician: JEFF BROWN MD Date of Service: 04/06/19 Procedure(s): MR thoracic spine wo con Accession Number(s): [id number] cc: JEFF BROWN MD MR THORACIC SPINE WITHOUT CONTRAST MR LUMBAR SPINE WITHOUT CONTRAST HISTORY: Can't walk right leg TECHNIQUE: Multisequence, multiplanar MR. FINDINGS: This exam is significantly limited by patient motion artifact. There is no evidence for compression performing or subluxation. Spinal canal appears normal caliber. No obvious abnormal cord signal. There is mild multilevel degenerative disc disease throughout the thoracic and lumbar regions. No large bulging disc. Mild diffuse facet arthropathy. The bony structures demonstrate a heterogeneous bone marrow signal throughout. The may represent marrow replacement changes. Otherwise, diffuse metastasis to be considered. IMPRESSION: Limited exam. No evidence for fracture, central canal stenosis or abnormal cord signal. Transcribed By: TTR Dictated By: ABBE HERMAN JR, MD Electronically Authenticated By: ABBE HERMAN JR, MD Signed Date/Time: 04/06/19 1424 Print Report Referring Physician: JEFF BROWN Patient Name: JASPREET PASTRANA Date of : 1950 Sex: Male Report Date: 2019-04-06 Report Status: Finalized Findings [address] [address] Magnetic Resonance Report Signed Patient: JASPREET PASTRANA MR#: [id number] : 1950 Acct:[id number] Age/Sex: 68 / M ADM Date: 04/06/19 Loc: ED Attending Dr: Ordering Physician: JEFF BROWN MD Date of Service: 04/06/19 Procedure(s): MR lumbar spine wo con Accession Number(s): [id number] cc: JEFF BROWN MD MR THORACIC SPINE WITHOUT CONTRAST MR LUMBAR SPINE WITHOUT CONTRAST HISTORY: Can't walk right leg TECHNIQUE: Multisequence, multiplanar MR. FINDINGS: This exam is significantly limited by patient motion artifact. There is no evidence for compression performing or subluxation. Spinal canal appears normal caliber. No obvious abnormal cord signal. There is mild multilevel degenerative disc disease throughout the thoracic and lumbar regions. No large bulging disc. Mild diffuse facet arthropathy. The bony structures demonstrate a heterogeneous bone marrow signal throughout. The may represent marrow replace ment changes. Otherwise, diffuse metastasis to be considered. IMPRESSION: Limited exam. No evidence for fracture, central canal stenosis or abnormal cord signal. Transcribed By: TTR Dictated By: ABBE HERMAN JR, MD Electronically Authenticated By: ABBE HERMAN JR, MD Signed Date/Time: 1314 Critical care attestation.: If time is entered above; I have spent that time in minutes in the direct care of this critically ill patient, excluding procedure time. ED Disposition Clinical Impression: Elevated blood pressure reading, Right hip pain, Hypomagnesemia Disposition: - TO HOME OR SELFCARE Is pt being admited?: No Does the pt Need Aspirin: No Condition: Stable Additional Instructions: Rest, avoid heavy lifting, and avoid strenuous physical activities. Take the pain medication as needed/directed. Take the magnesium supplementation as needed/directed. Please follow up with a primary care doctor within 7-10 days to have blood pressure rechecked, and magnesium levels rechecked. Long-term complications of hypertension and elevated blood pressure, which the patient had today while in the emergency room, may lead to , disability, paralysis, l oss of quality of life. Patient appears to have severe right-sided hip arthritis. This will likely persist for the rest of the patient's natural life. The patient should follow- up with the primary care doctor or orthopedist, to be evaluated for physical therapy, possible hip replacement and other outpatient pain control modalities. Please return to the emergency room right away with new pain, worsened pain, migration of pain, projectile vomiting, change in mental status, confusion. Case management consult has been placed and ordered to see if the patient qualifies for home health, home assistance, and home physical therapy. Please have your primary care doctor contacted case management office [phone] Referrals: JOSE F PEDERSON MD [Staff Physician] - 3-5 Days [facility] [Provider Group] - 3-5 Days
[2019-04-06 12:25] LABS: INR 1.05 (0.87-1.13)
[2019-04-06 12:26] LABS: Partial Thromboplastin Time 32.2 Sec. (24.2-36.6); Thrombin Time 14.9 Sec. (15.1-19.6)
[2019-04-06 12:36] LABS: Creatine Kinase MB 1.6 ng/mL (0.0-4.0)
[2019-04-06 12:37] LABS: Basophils # (Auto) 0.1 K/mm3 (0.0-0.1); Basophils % (Auto) 1.2 % (0.0-1.8); Eosinophils % (Auto) 0.1 % (0.0-4.3); Hematocrit 36.5 % (35.5-45.6); Hemoglobin 11.7 gm/dl (11.8-15.2); Lymphocytes # (Auto) 1.1 K/mm3 (1.2-5.4); Lymphocytes % (Auto) 11.9 % (13.4-35.0); Mean Corpuscular HGB Conc 32 % (32-34); Mean Corpuscular Volume 92 fl (84-94); Monocytes # (Auto) 1.1 K/mm3 (0.0-0.8); Monocytes % (Auto) 12.4 % (0.0-7.3); Platelet Count 273 K/mm3 (140-440); Red Blood Count 3.96 M/mm3 (3.65-5.03); Red Cell Distribution Width 16.4 % (13.2-15.2)
[2019-04-06 12:39] LABS: Albumin 3.8 g/dL (3.9-5); BUN/Creatinine Ratio 20; Blood Urea Nitrogen 20 mg/dL (9-20); Calcium 9.3 mg/dL (8.4-10.2); Hemolysis Index 91
[2019-04-06] MEDS ORDERED: MAGNESIUM SULFATE 1 GM in NACL 0.9% 50 ML IV ONE (13:01)
[2019-04-06] MEDS ORDERED: D50W (25GM) Syringe IV PRN (13:01)
[2019-04-06] MEDS ORDERED: MAG-OX PO STA (13:01)
[2019-04-06] MEDS ORDERED: D50W (25GM) Syringe IV ONE (13:01)
[2019-04-06] MEDS ORDERED: MAGNESIUM SULFATE 2GM/50ML 2 GM/50 ML BAG IV ONE (13:01)
[2019-04-06 13:20] LABS: Alanine Aminotransferase 6 units/L (7-56)
[2019-04-06] MEDS ORDERED: SUBLIMAZE ONE (13:52)
[2019-04-06] MEDS ORDERED: D5/0.45NS 1,000 ML IV SCH (14:00)
--- NOTE | 2019-04-06 14:29 | Magnetic Resonance Report ---
MR THORACIC SPINE WITHOUT CONTRAST MR LUMBAR SPINE WITHOUT CONTRAST HISTORY: Can't walk right leg TECHNIQUE: Multisequence, multiplanar MR. FINDINGS: This exam is significantly limited by patient motion artifact. There is no evidence for compression performing or subluxation. Spinal canal appears normal caliber. No obvious abnormal cord signal. There is mild multilevel degenerative disc disease throughout the thoracic and lumbar regions. No large bulging disc. Mild diffuse facet arthropathy. The bony structures demonstrate a heterogeneous bone marrow signal throughout. The may represent marrow replacement changes. Otherwise, diffuse metastasis to be considered. IMPRESSION: Limited exam. No evidence for fracture, central canal stenosis or abnormal cord signal.
--- NOTE | 2019-04-06 14:51 | Cat Scan Report ---
CT HEAD WITHOUT CONTRAST: HISTORY: Stroke symptoms. TECHNIQUE: Sequential 2.5mm CT images. COMPARISON: none. FINDINGS: Cerebral Parenchyma: Mild nonspecific chronic white matter changes are identified. Otherwise the brain parenchyma is within normal limits. Cerebellum: Within normal limits. Brainstem: Within normal limits. Ventricles: Normal. Sella: Normal. Extra-axial spaces: Normal. Basal Cisterns: Normal. Intracranial Hemorrhage: None. Midline Shift: None. Calvarium: Normal. Sinuses: Normal. Mastoid Air Cells: Normal. Visualized Orbits: Normal. IMPRESSION: Nonspecific chronic white matter changes. No acute intracranial process is identified.
--- NOTE | 2019-04-06 14:54 | Cat Scan Report ---
CT ABDOMEN PELVIS WITHOUT CONTRAST: HISTORY: abdominal pain. COMPARISON: 03/20/19. TECHNIQUE: Helical CT in 1.25mm intervals without IV contrast. Sagittal and coronal reconstructions. FINDINGS: Lung bases: The visualized lung bases are adequately aerated. Moderate coronary artery calcifications are noted. Normal heart size. Liver: Normal. Biliary system: Normal. Pancreas: Normal. Spleen: Normal. Kidneys/ureters/bladder: An 8 mm right renal stone is identified near mid pole. The kidneys are within normal limits otherwise. No ureteral stones or hydronephrosis. The bladder is unremarkable. The prostate gland is mildly enlarged. Adrenal glands: Normal. Aorta: Normal. Intestines: No evidence for bowel obstruction or focal inflammation. Appendix: Normal. Ascites: None. Adenopathy: None. Musculoskeletal: The bony structures are mildly demineralized. IMPRESSION: No acute inflammatory process is identified. 8 mm right renal stone, nonobstructing.
[2019-04-06] MEDS ORDERED: TORADOL IV ONE (15:23)
[2019-04-06] MEDS ORDERED: APRESOLINE IV ONE (15:23)
[2019-04-06] MEDS ORDERED: DILAUDID IV ONE ×2 (15:23→22:49)
--- NOTE | 2019-04-06 16:45 | XRay Report ---
PROCEDURE: XR FEMUR 2+V RT TECHNIQUE: AP and lateral radiographs of the right femur were performed. HISTORY: righ femur pain COMPARISONS: None. FINDINGS: A subtle lucency projects over the right proximal femoral diaphysis measuring approximately 1.3 x 0.9 x 0.4 cm. There is slight wavy periosteal elevation of the posterior aspect of the right mid femoral diaphysis which appears nonaggressive. No fracture. No dislocation. Normal mineralization. No soft tissue swelling. Mild degenerative changes of the right hip are seen. Atherosclerotic calculi are seen in the right fe moral arterial system. IMPRESSION: 1. Nonspecific lucent lesion within the right proximal femoral diaphysis is nonspecific. Consider fur ther evaluation with bone scan and/or MRI of the right femur with and without contrast. 2. Mild nonspecific periosteal elevation of the right mid femoral diaphysis may be related to chronic infection versus hypertrophic pulmonary osteoarthropathy versus other etiologies. This document is electronically signed by Alicia Salgado., Apr 06 2019 04:43:52 PM ET
--- NOTE | 2019-04-06 16:48 | XRay Report ---
PROCEDURE: XR PELVIS 1-2V TECHNIQUE: AP view of the pelvis was performed. Frog leg radiograph of the right hip. HISTORY: right hip p[ain COMPARISONS: None. FINDINGS: Lucent lesion within the right proximal femur as described on the femur radiographs performed the . There is mild bilateral hip joint space narrowing and peripheral osteophyte formations. No fra cture. No dislocation. Normal mineralization. No soft tissue swelling. IMPRESSION: 1. Mild osteoarthritis of the hips. 2. Nonspecific right proximal femoral lucent lesion. Please see the report from the femur radiographs performed at the same time for recommendations. This document is electronically signed by Alicia Salgado., Apr 06 2019 04:46:11 PM ET
[2019-04-06 22:48] VITALS: BP 145/76
== END 2019-04-06 23:05 | disposition home or self-care (01) ==
LOC: ED 11:05
DX: I10 Essential (primary) hypertension (principal); M25.551 Pain in right hip; E83.42 Hypomagnesemia; M10.9 Gout, unspecified; Z91.018 Allergy to other foods; Z91.013 Allergy to seafood
CPT/HCPCS: 36415; 70450; 72146; 72148; 72170; 73552; 74176; 80053; 82550; 82553; 82962; 83735; 84484; 85025; 85610; 85670; 85730; 93005; 93010; 96365; 96367; 96375; 96376; 99285; J0360; J1170; J1885; J3010; J3475

== ENCOUNTER 2019-10-17 04:12 | Inpatient (IN) | payer MEDICARE ==
--- NOTE | 2019-10-17 06:02 | Cat Scan Report ---
CT HEAD WITHOUT CONTRAST INDICATION : ams. TECHNIQUE: Axial, coronal and sagittal CT imaging was performed from the skull apex through the skul l base without contrast. All CT scans at this location are performed using CT dose reduction for ALA RA by means of automated exposure control. COMPARISON: CT head without contrast from 04/06/2019. FINDINGS: PARENCHYMA: No mass, midline shift, hemorrhage, extraaxial collection or acute territorial infarctio n. There are stable areas of low-attenuation along the periventricular white matter that may represen t chronic microvascular ischemic changes. VENTRICLES: Symmetric and normal in size. SOFT TISSUES: Soft tissues including the orbits appear normal. BONES: No acute osseous abnormality. SINUSES: No significant abnormality. ADDITIONAL FINDINGS: None. IMPRESSION: No acute intracranial abnormality. Signer Name: Boogie Torres MD Signed: 10/17/2019 5:57 AM Workstation Name: [id number]
[2019-10-17 06:08] LABS: Calcium 9.3 mg/dL (8.4-10.2)
--- NOTE | 2019-10-17 06:28 | Emergency Department Report ---
HPI - General Chief Complaint: Altered Mental Status Time Seen by Provider: 10/17/19 06:00 - HPI HPI: 68-year-old male presents to the emergency department from home via EMS with complaint of some type of altered mental status and/or possible seizures. The patient is unknown to myself but he has been seen here in this emergency department at least 3 times previously, the last time in March of this year. The patient has a history of hypertension and a seizure disorder. Upon arrival to the emergency department he is very sleepy but will respond to verbal stimuli. However he is currently a poor historian. Patient arrived actively vomiting with some thin green emesis. ED Past Medical Hx - Past Medical History Hx Hypertension: Yes Hx Seizures: Yes Additional medical history: Gout - Social History Smoking Status: Current Every Day Smoker Substance Use Type: Alcohol - Medications Home Medications: Home Medications Medication Instructions Recorded Confirmed Last Taken Type Lisinopril [Zestril TAB] 20 mg PO QDAY #30 tablet 02/17/17 10/17/19 10/15/19 Rx Metoprolol [Lopressor TAB] 25 mg PO BID #60 tablet 02/17/17 10/17/19 10/15/19 Rx Potassium Chloride [K-Dur] 20 meq PO BID #6 tab 03/20/19 10/17/19 10/15/19 Rx hydrALAZINE [Apresoline TAB] 25 mg PO Q8HR #90 tablet 03/20/19 10/17/19 10/15/19 Rx levETIRAcetam [Keppra TAB] 1,000 mg PO BID #60 tablet 03/20/19 10/17/19 10/15/19 Rx Acetaminophen [Non-Aspirin Extra 500 mg PO Q6HR PRN #30 tablet 04/06/19 10/17/19 Unknown Rx Strength] Ibuprofen [Motrin] 600 mg PO Q8H PRN #30 tablet 04/06/19 10/17/19 Unknown Rx Magnesium Oxide 500 mg PO BID #20 capsule 04/06/19 10/17/19 10/15/19 Rx ED Review of Systems ROS: Stated complaint: AMS Other details as noted in HPI Comment: Unobtainable due to pts medical conditions Gastrointestinal: nausea, vomiting Neurological: confusion Physical Exam - Physical Exam Vital Signs: Vital Signs 10/17/19 10/17/19 10/17/19 04:31 04:40 04:45 Temperature 98.5 F Pulse Rate 140 H Respiratory 31 H Rate Blood Pressure 188/97 O2 Sat by Pulse 96 90 Oximetry Physical Exam: GENERAL: Patient is ill-appearing. HENT: Normocephalic. Atraumatic. Patient has moist mucous membranes. EYES: Extraocular motions are intact. Pupils equal reactive to light bilaterally. NECK: Supple. Trachea is midline. CHEST/LUNGS: Clear to auscultation. There is no respiratory distress noted. HEART/CARDIOVASCULAR: Regular. There is no tachycardia. There is no murmur. ABDOMEN: Abdomen is soft, nontender. Patient has normal bowel sounds. There is no abdominal distention. SKIN: Skin is warm and dry. NEURO: The patient is arousable but is confused. Withdraws from painful stimuli. MUSCULOSKELETAL: There is no tenderness or deformity. There is no evidence of acute injury. ED Course Vital Signs 10/17/19 10/17/19 10/17/19 04:31 04:40 04:45 Temperature 98.5 F Pulse Rate 140 H Respiratory 31 H Rate Blood Pressure 188/97 O2 Sat by Pulse 96 90 Oximetry - ABG Interpretation Ph: 7.203 PCO2: 29 PO2: 69 Bicarbonate: 11 Interpretation: respiratory acidosis, metabolic acidosis ED Medical Decision Making - Lab Data Result diagrams: 10/17/19 05:21 10/17/19 10:47 - EKG Data -: EKG Interpreted by Md EKG shows normal: sinus rhythm, axis, intervals, QRS complexes, ST-T waves Rate: tachycardia (109 bpm) - EKG Data When compared to previous EKG there are: previous EKG unavailable Interpretation: normal EKG (with mild tachycardia) - Radiology Data Radiology results: report reviewed CT HEAD WITHOUT CONTRAST INDICATION : ams. TECHNIQUE: Axial, coronal and sagittal CT imaging was performed from the skull apex through the skull base without contrast. All CT scans at this location are performed using CT dose reduction for ALARA by means of automated exposure control. COMPARISON: CT head without contrast from 04/06/2019. FINDINGS: PARENCHYMA: No mass, midline shift, hemorrhage, extraaxial collection or acute territorial infarction. There are stable areas of low-attenuation along the periventricular white matter that may represent chronic microvascular ischemic changes. VENTRICLES: Symmetric and normal in size. SOFT TISSUES: Soft tissues including the orbits appear normal. BONES: No acute osseous abnormality. SINUSES: No significant abnormality. ADDITIONAL FINDINGS: None. IMPRESSION: No acute intracranial abnormality. - Medical Decision Making This patient presents to the emergency department with altered mental status. He has a seizure disorder history but there was no obvious witnessed seizure- like activity prior to arrival. The patient is very fatigued but he is arousable. Once awake he does display some confusion. A CT scan of the head did not show any bleed, shift, mass, ischemia, or any other acute process. Labs show metabolic acidosis, hyperammonemia, and some acute renal insufficiency/failure. Blood alcohol level was below the legal limit. Urine drug screen was negative. The patient was given some lactulose. He will be admitted to the hospital for further evaluation and treatment and was accepted for admission by the hospitalist service. - Differential Diagnosis CVA, substance abuse, encephalopathy Critical Care Time: No Critical care attestation.: If time is entered above; I have spent that time in minutes in the direct care of this critically ill patient, excluding procedure time. ED Disposition Clinical Impression: Encephalopathy, History of seizure disorder Altered mental status Qualifiers: Altered mental status type: unspecified Qualified Code(s): R41.82 - Altered mental status, unspecified Acute renal failure Qualifiers: Acute renal failure type: unspecified Qualified Code(s): N17.9 - Acute kidney failure, unspecified Disposition: -09 OP ADMIT IP TO THIS HOSP Is pt being admited?: Yes Condition: Serious Time of Disposition: 07:54
[2019-10-17 06:34] LABS: Basophils # (Auto) 0.1 K/mm3 (0.0-0.1); Basophils % (Auto) 0.5 % (0.0-1.8); Lymphocytes # (Auto) 1.1 K/mm3 (1.2-5.4); Lymphocytes % (Auto) 10.4 % (13.4-35.0); Mean Corpuscular HGB Conc 30 % (32-34); Mean Corpuscular Volume 98 fl (84-94); Monocytes # (Auto) 0.3 K/mm3 (0.0-0.8); Monocytes % (Auto) 3.2 % (0.0-7.3); Platelet Count 212 K/mm3 (140-440); Red Cell Distribution Width 16.9 % (13.2-15.2)
[2019-10-17 06:36] LABS: Hematocrit 38.3 % (35.5-45.6); Hemoglobin 11.6 gm/dl (11.8-15.2)
[2019-10-17 06:38] LABS: Alanine Aminotransferase 10 units/L (7-56); Albumin 4.3 g/dL (3.9-5)
[2019-10-17 06:46] LABS: Bilirubin,Direct < 0.2 mg/dL (0-0.2)
[2019-10-17] MEDS ORDERED: SODIUM CHLORIDE 0.9% 1000 ML 1,000 ML IV ONE (06:46)
[2019-10-17] MEDS ORDERED: levETIRAcetam 1000 MG/NS 0.75% 1,000 MG/100 ML BAG IV ONE (06:52)
[2019-10-17] MEDS ORDERED: DEXTROSE 50% IN WATER (25GM) 50 ML SYRINGE IV ONE (06:53)
[2019-10-17] MEDS ORDERED: LACTULOSE 20 GM/30 ML ORAL LIQD PO ONE (07:58)
[2019-10-17 09:37] LABS: Amphetamine Screen,Urine PRESUMPTIVE NEGATIVE; Benzodiazepines Screen,Urine PRESUMPTIVE NEGATIVE; Cannabinoid Screen,Urine PRESUMPTIVE NEGATIVE; Cocaine Screen,Urine PRESUMPTIVE NEGATIVE; Methadone Screen,Urine PRESUMPTIVE NEGATIVE; Opiate Screen,Urine PRESUMPTIVE NEGATIVE
[2019-10-17] MEDS ORDERED: MAGNESIUM SULFATE 4 GM/100 ML BAG IV ONE (09:48)
[2019-10-17] MEDS ORDERED: SODIUM BICARBONATE 150 MEQ in DEXTROSE 5% IN WATER 1,000 ML IV SCH (10:00)
--- NOTE | 2019-10-17 10:17 | Consultation ---
History of Present Illness - Reason for Consult Consult date: 10/17/19 acute renal failure, metabolic acidosis - History of Present Illness The patient is a 68 YO AAM wit history significant for HTN, Seizure disorder who presented to [facility] ED 10/17 from home via EMS with complaint of AMS and seizures. The patient is a very poor historian. He said he has 2 seizures last night. Unable to get any further history and there was no family members at the bedside. Patient arrived actively vomiting with some thin green emesis. Initial vitals were significant for tachycardia and hypertension. Labs significant for Creat 1.9, K 5.1 and bicarb 4. Nephrology was consulted for further evaluation. Past History Past Medical History: hypertension, seizures Medications and Allergies Allergies Allergy/AdvReac Type Severity Reaction Status Date / Time pork derived (porcine) Allergy Rash Verified 02/15/17 07:26 shellfish derived Allergy Hives Verified 02/15/17 07:26 Home Medications Medication Instructions Recorded Confirmed Last Taken Type Lisinopril [Zestril TAB] 20 mg PO QDAY #30 tablet 02/17/17 10/17/19 10/15/19 Rx Metoprolol [Lopressor TAB] 25 mg PO BID #60 tablet 02/17/17 10/17/19 10/15/19 Rx Potassium Chloride [K-Dur] 20 meq PO BID #6 tab 03/20/19 10/17/19 10/15/19 Rx hydrALAZINE [Apresoline TAB] 25 mg PO Q8HR #90 tablet 03/20/19 10/17/19 10/15/19 Rx levETIRAcetam [Keppra TAB] 1,000 mg PO BID #60 tablet 03/20/19 10/17/19 10/15/19 Rx Acetaminophen [Non-Aspirin Extra 500 mg PO Q6HR PRN #30 tablet 04/06/19 10/17/19 Unknown Rx Strength] Ibuprofen [Motrin] 600 mg PO Q8H PRN #30 tablet 04/06/19 10/17/19 Unknown Rx Magnesium Oxide 500 mg PO BID #20 capsule 04/06/19 10/17/19 10/15/19 Rx Active Meds: Active Medications Sodium Bicarbonate 150 meq/ (Dextrose) 1,150 mls @ 75 mls/hr IV DIRECT TIERRA Magnesium Sulfate (Magnesium Sulfate 4gm/100ml) 4 gm in 100 mls @ 25 mls/hr IV ONCE ONE Stop: 10/17/19 13:47 Lactulose (Cephulac) 20 gm PO Q6HR TIERRA Review of Systems ROS unobtainable: due to mental status Exam - Vital Signs Vital signs: Vital Signs Pulse Resp Pulse Ox 140 H 31 H 96 10/17/19 04:31 10/17/19 04:31 10/17/19 04:31 - General Appearance General appearance: well-developed, appears stated age, other (no distress) EENT: ATNC, PERRL, mucous membranes dry, hearing intact Neck: Present: neck supple, trachea midline Respiratory: Clear to Ascultation Heart: regular, S1S2, no murmurs Gastrointestinal: Present: normoactive bowel sounds. Absent: tenderness, distended Integumentary: no rash, warm and dry Neurologic: confused, other (lethargic, able to move extremities) Musculoskeletal: Present: other (no edema) Results - Lab Results 10/18/19 08:41 10/18/19 08:41 Most recent lab results Calcium 9.3 mg/dL (8.4-10.2) 10/17/19 05:21 - Image Kidney/bladder ultrasound: pending Assessment and Plan 1. Acute kidney injury: Vasomotor [place] in the setting of volume depletion. UA bland. Continue IV fluids. Renal function is improving. Monitor renal function. Avoid nephrotoxic agents. Meds dosage based on GFR. 2. FEN: Anion-gap Metabolic acidosis, 2/2 Lactic acidosis due to post-ictal state. Improving. Hyperkalemia, improved. Monitor lytes. 3. Encephalopathy: Likley 2/2 post-ictal state. 4. Hypertension: Monitor BP.
[2019-10-17] MEDS ORDERED: LACTULOSE 20 GM/30 ML ORAL LIQD ONE (10:40)
--- NOTE | 2019-10-17 11:14 | History and Physical Report ---
History of Present Illness Date of examination: 10/17/19 Date of admission: 10/17/19 07:53 Chief complaint: Altered mental status History of present illness: Patient is 68 yo with hypertension, seizure disorder. He was brought in for altered mental status. He states he believes he had a breakthrough seizure. Patient is on Keppra for seizure disorder and states he has been compliant with medications. He denies headache, no vomiting, no chest pain. He was seen and evaluated in ED. Labs show severe metabolic acidosis with Bicarb of 4, acute kidney injury with Creatinine of 1.9 and hyperkalemia. Also ammonia level was elevated. he was started on keppra, Bicarb. Will admit to Telemetry. Past History Past Medical History: hypertension, other (seizure disorder) Past Surgical History: No surgical history Social history: single (lives with girlfriend), smoking, full code Family history: no significant family history Medications and Allergies Allergies Allergy/AdvReac Type Severity Reaction Status Date / Time pork derived (porcine) Allergy Rash Verified 02/15/17 07:26 shellfish derived Allergy Hives Verified 02/15/17 07:26 Home Medications Medication Instructions Recorded Confirmed Last Taken Type Lisinopril [Zestril TAB] 20 mg PO QDAY #30 tablet 02/17/17 10/17/19 10/15/19 Rx Metoprolol [Lopressor TAB] 25 mg PO BID #60 tablet 02/17/17 10/17/19 10/15/19 Rx Potassium Chloride [K-Dur] 20 meq PO BID #6 tab 03/20/19 10/17/19 10/15/19 Rx hydrALAZINE [Apresoline TAB] 25 mg PO Q8HR #90 tablet 03/20/19 10/17/19 10/15/19 Rx levETIRAcetam [Keppra TAB] 1,000 mg PO BID #60 tablet 03/20/19 10/17/19 10/15/19 Rx Acetaminophen [Non-Aspirin Extra 500 mg PO Q6HR PRN #30 tablet 04/06/19 10/17/19 Unknown Rx Strength] Ibuprofen [Motrin] 600 mg PO Q8H PRN #30 tablet 04/06/19 10/17/19 Unknown Rx Magnesium Oxide 500 mg PO BID #20 capsule 04/06/19 10/17/19 10/15/19 Rx Active Meds: Active Medications Sodium Bicarbonate 150 meq/ (Dextrose) 1,150 mls @ 75 mls/hr IV DIRECT TIERRA Magnesium Sulfate (Magnesium Sulfate 4gm/100ml) 4 gm in 100 mls @ 25 mls/hr IV ONCE ONE Stop: 10/17/19 13:47 Lactulose (Cephulac) 20 gm PO Q6HR TIERRA Review of Systems All systems: negative (No fever, no cough, no abd pain. All other systems reviewed and are negative.) Exam - Physical Exam Narrative exam: Gen: Not in acute distress, lying in bed HEENT: Normocephalic, atraumatic Neck: supple, no JVD Heart: S1 and S2 reg, no murmurs, rubs or gallop Lungs: clear to auscultation bilaterally, no crackles Abd: soft, NT, non distended, normal BS Ext: No edema, no clubbing, no cyanosis Neuro: Lethargic, arouseable,oriented X 3, moves all ext - Constitutional Vitals: Temp Pulse Resp BP Pulse Ox 98.5 F 107 H 14 174/93 97 10/17/19 04:40 10/17/19 10:01 10/17/19 09:38 10/17/19 10:01 10/17/19 10:01 Results - Labs CBC & Chem 7: 10/18/19 08:41 10/18/19 08:41 Labs: Abnormal lab results 10/17/19 10/17/19 10/17/19 Range/Units 05:21 05:21 05:29 Hgb 11.6 L (11.8-15.2) gm/dl MCV 98 H (84-94) fl MCHC 30 L (32-34) % RDW 16.9 H (13.2-15.2) % Lymph % (Auto) 10.4 L (13.4-35.0) % Lymph # 1.1 L (1.2-5.4) K/mm3 Seg Neutrophils % 85.9 H (40.0-70.0) % Seg Neutrophils # 9.2 H (1.8-7.7) K/mm3 POC ABG pH (7.35-7.45) POC ABG pCO2 (35-45) POC ABG pO2 (80-105) Potassium 5.1 H (3.6-5.0) mmol/L Carbon Dioxide 4 L* (22-30) mmol/L BUN 33 H (9-20) mg/dL Creatinine 1.9 H (0.8-1.5) mg/dL Glucose 74 L (75-100) mg/dL AST 46 H (5-40) units/L Ammonia (25-60) umol/L Total Protein 8.7 H (6.3-8.2) g/dL 10/17/19 10/17/19 Range/Units 07:12 08:48 Hgb (11.8-15.2) gm/dl MCV (84-94) fl MCHC (32-34) % RDW (13.2-15.2) % Lymph % (Auto) (13.4-35.0) % Lymph # (1.2-5.4) K/mm3 Seg Neutrophils % (40.0-70.0) % Seg Neutrophils # (1.8-7.7) K/mm3 POC ABG pH 7.203 L (7.35-7.45) POC ABG pCO2 29.9 L (35-45) POC ABG pO2 69 L (80-105) Potassium (3.6-5.0) mmol/L Carbon Dioxide (22-30) mmol/L BUN (9-20) mg/dL Creatinine (0.8-1.5) mg/dL Glucose (75-100) mg/dL AST (5-40) units/L Ammonia 124.0 H (25-60) umol/L Total Protein (6.3-8.2) g/dL Assessment and Plan Acute metabolic encephalopathy Admit Neurochecks Post ictal state after seizures Breakthrough seizures keppra [place] Start iv fluids Consulted and discussed with Nephrology metabolic acidosis start Bicarb drip Hypertension Monitor BP lactic acidosis likely from seizures repeat Alcohol abuse. I counseled him on quitting Full code status
[2019-10-17 11:20] LABS: Bacteria,Urine 1+ /HPF (Negative); Bilirubin,Urine NEG (Negative); Blood,Urine MOD (Negative); Color,Urine Straw (Yellow); Hyaline Casts,Urine 3 /LPF; Urobilinogen,Urine < 2.0 mg/dL (<2.0)
[2019-10-17 11:21] LABS: Creatinine,Urine 60.9 mg/dL (0.1-20.0)
[2019-10-17] MEDS ORDERED: PNEUMOCOCCAL 23 Valent 0.5 ML VIAL IM ONE (12:37)
[2019-10-17] MEDS ORDERED: FLU VACC QUAD 2019-20 (3 YR UP)/PF 60 MCG/0.5 ML SYRINGE IM ONE (12:37)
[2019-10-17] MEDS: LACTULOSE 20 GM/30 ML ORAL LIQD PO SCH ×2 (13:01→18:03)
[2019-10-17] MEDS ORDERED: ACETAMINOPHEN 500 MG TAB PO PRN (14:53)
[2019-10-17] MEDS: METOPROLOL TARTRATE 25 MG TAB PO SCH ×2 (16:14→21:51)
[2019-10-17] MEDS: hydrALAZINE 25 MG TAB PO SCH ×2 (16:14→21:51)
[2019-10-17] MEDS ORDERED: ALBUTEROL 2.5 MG/3 ML NEBU IH PRN (16:52)
[2019-10-17] MEDS ORDERED: ONDANSETRON 4 MG/2 ML INJ IV PRN (16:52)
[2019-10-17 18:04] LABS: BUN/Creatinine Ratio 23; Blood Urea Nitrogen 27 mg/dL (9-20); Hemolysis Index 4
[2019-10-17] MEDS ORDERED: POTASSIUM CHLORIDE ER 20 MEQ TAB PO ONE (20:00)
[2019-10-17] MEDS: levETIRAcetam 500 MG TAB PO SCH (21:45)
[2019-10-18] MEDS: LACTULOSE 20 GM/30 ML ORAL LIQD PO SCH ×4 (00:12→18:54)
[2019-10-18] MEDS: hydrALAZINE 25 MG TAB PO SCH ×4 (01:00→21:08)
[2019-10-18] MEDS: METOPROLOL TARTRATE 25 MG TAB PO SCH ×3 (01:00→21:08)
[2019-10-18 09:36] LABS: BUN/Creatinine Ratio 18; Blood Urea Nitrogen 22 mg/dL (9-20); Calcium 9.1 mg/dL (8.4-10.2); Hemolysis Index 6
[2019-10-18 10:15] LABS: Basophils % (Auto) 0.4 % (0.0-1.8); Eosinophils % (Auto) 0.2 % (0.0-4.3); Hematocrit 37.8 % (35.5-45.6); Hemoglobin 12.4 gm/dl (11.8-15.2); Lymphocytes # (Auto) 0.9 K/mm3 (1.2-5.4); Lymphocytes % (Auto) 12.2 % (13.4-35.0); Mean Corpuscular HGB Conc 33 % (32-34); Mean Corpuscular Volume 90 fl (84-94); Monocytes # (Auto) 0.4 K/mm3 (0.0-0.8); Monocytes % (Auto) 4.8 % (0.0-7.3); Platelet Count 150 K/mm3 (140-440); Red Blood Count 4.21 M/mm3 (3.65-5.03); Red Cell Distribution Width 15.4 % (13.2-15.2)
[2019-10-18] MEDS ORDERED: SODIUM PHOSPHATE 45 MMOL in SODIUM CHLORIDE 0.9% 500 ML 500 ML IV ONE (10:17)
[2019-10-18] MEDS: levETIRAcetam 500 MG TAB PO SCH ×2 (11:58→21:08)
--- NOTE | 2019-10-18 15:48 | Progress Note ---
Assessment and Plan 1. Acute kidney injury: Vasomotor [place] in the setting of volume depletion. UA bland. Renal function is better. Monitor renal function. Avoid nephrotoxic agents. Meds dosage based on GFR. 2. FEN: Anion-gap Metabolic acidosis, 2/2 Lactic acidosis due to post-ictal state. Improving. Hyperkalemia, improved. Replete Phos. Monitor lytes. 3. Encephalopathy: Likley 2/2 post-ictal state. 4. Hypertension: Resume home BP meds. Hold Lisinopril for now. Monitor BP. Subjective Date of service: 10/18/19 Interval history: The patient was not examined today. However the current and previous medical records are reviewed in detail as are laboratory and imaging data reviewed when appropriate. Medications being given are also reviewed. In addition the case has been discussed with the attending hospitalist when needed.Newrenalrecommendations as above. Objective - Vital Signs Vital signs: Vital Signs - 12hr 10/18/19 10/18/19 10/18/19 05:01 05:04 11:53 Temperature 98.8 F Pulse Rate 76 87 Respiratory 18 Rate Blood Pressure 147/87 O2 Sat by Pulse 100 Oximetry - Lab 10/18/19 08:41 10/18/19 08:41 Most recent lab results Calcium 9.1 mg/dL (8.4-10.2) 10/18/19 08:41 Phosphorus 1.20 mg/dL (2.5-4.5) L 10/18/19 08:41 Magnesium 2.10 mg/dL (1.7-2.3) 10/18/19 08:41 Urine Creatinine 60.9 mg/dL (0.1-20.0) H 10/17/19 10:45 Urine Sodium 129 mmol/L 10/17/19 10:45 Medications & Allergies - Medications Allergies/Adverse Reactions: Allergies pork derived (porcine) Allergy (Verified 02/15/17 07:26) Rash shellfish derived Allergy (Verified 02/15/17 07:26) Hives Home Medications: Home Medications Medication Instructions Recorded Confirmed Last Taken Type Lisinopril [Zestril TAB] 20 mg PO QDAY #30 tablet 02/17/17 10/17/19 10/15/19 Rx Metoprolol [Lopressor TAB] 25 mg PO BID #60 tablet 04/07/2810/17/19 10/15/19 Rx Potassium Chloride [K-Dur] 20 meq PO BID #6 tab 03/20/19 10/17/19 10/15/19 Rx hydrALAZINE [Apresoline TAB] 25 mg PO Q8HR #90 tablet 03/20/19 10/17/19 10/15/19 Rx levETIRAcetam [Keppra TAB] 1,000 mg PO BID #60 tablet 03/20/19 10/17/19 10/15/19 Rx Acetaminophen [Non-Aspirin Extra 500 mg PO Q6HR PRN #30 tablet 04/06/19 10/17/19 Unknown Rx Strength] Ibuprofen [Motrin] 600 mg PO Q8H PRN #30 tablet 04/06/19 10/17/19 Unknown Rx Magnesium Oxide 500 mg PO BID #20 capsule 04/06/19 10/17/19 10/15/19 Rx Active Medications: Generic Name Dose Route Start Last Admin Trade Name Freq PRN Reason Stop Dose Admin Acetaminophen 500 mg 10/17/19 14:53 10/17/19 16:13 Tylenol PO 500 mg Q6HR PRN Administration Pain , Severe (7-10) Albuterol 2.5 mg 10/17/19 16:52 Proventil IH Q4HRT PRN Shortness Of Breath Hydralazine HCl 25 mg 10/17/19 15:00 10/18/19 05:11 Apresoline PO 25 mg Q8HR TIERRA Administration Sodium Bicarbonate 150 meq/ 1,150 mls @ 75 mls/hr 10/17/19 10:00 10/17/19 13:22 Dextrose IV 75 mls/hr DIRECT TIERRA Administration Sodium Phosphate 45 mmol/ 515 mls @ 84 mls/hr 10/18/19 10:17 10/18/19 11:58 Sodium Chloride IV 10/18/19 16:24 84 mls/hr ONCE ONE Administration Lactulose 20 gm 10/17/19 12:00 10/18/19 05:17 Cephulac PO Not Given Q6HR TIERRA Levetiracetam 1,000 mg 10/17/19 22:00 10/18/19 11:58 Keppra PO 1,000 mg BID TIERRA Administration Metoprolol Tartrate 25 mg 10/17/19 15:00 10/18/19 11:53 Metoprolol PO 25 mg BID TIERRA Administration Ondansetron HCl 4 mg 10/17/19 16:52 10/18/19 05:11 Zofran IV 4 mg Q8H PRN Administration Nausea And Vomiting Sodium Chloride 10 ml 10/17/19 22:00 10/18/19 11:59 Sodium Chloride Flush Syringe 10 Ml IV 10 ml BID TIERRA Administration Sodium Chloride 10 ml 10/17/19 16:52 Sodium Chloride Flush Syringe 10 Ml IV PRN PRN LINE FLUSH
[2019-10-18] MEDS: PHOS-NAK POWDER PACKET PO SCH ×2 (18:54→21:08)
[2019-10-19] MEDS: LACTULOSE 20 GM/30 ML ORAL LIQD PO SCH (00:08)
--- NOTE | 2019-10-19 07:44 | Progress Note ---
Assessment and Plan Assessment and plan: Acute metabolic encephalopathy Admitted to [facility] Neuroccks Post ictal state after seizures Breakthrough seizures keppra [place] Improved Continue iv fluids Consulted and discussed with Nephrology Nephrology following metabolic acidosis Continue Bicarb drip Hypertension Monitor BP lactic acidosis likely from seizures repeat was normal Alcohol abuse. I counseled him on quitting Full code status History Interval history: Altered mental status improved Hospitalist Physical - Physical exam Narrative exam: Gen: Not in acute distress, lying in bed HEENT: Normocephalic, atraumatic Neck: supple, no JVD Heart: S1 and S2 reg, no murmurs, rubs or gallop Lungs: clear to auscultation bilaterally, no crackles Abd: soft, NT, non distended, normal BS Ext: No edema, no clubbing, no cyanosis Neuro: Lethargic, arouseable,oriented X 3, moves all ext - Constitutional Vitals: Temp Pulse Resp BP Pulse Ox 98.2 F 88 18 159/95 99 10/19/19 04:00 10/19/19 04:00 10/19/19 04:00 10/19/19 03:31 10/19/19 04:00 Results - Labs CBC & Chem 7: 10/18/19 08:41 10/19/19 07:27 Labs: Laboratory Last Values WBC 7.5 K/mm3 (4.5-11.0) 10/18/19 08:41 RBC 4.21 M/mm3 (3.65-5.03) 10/18/19 08:41 Hgb 12.4 gm/dl (11.8-15.2) 10/18/19 08:41 Hct 37.8 % (35.5-45.6) 10/18/19 08:41 MCV 90 fl (84-94) 10/18/19 08:41 MCH 30 pg (28-32) 10/18/19 08:41 MCHC 33 % (32-34) 10/18/19 08:41 RDW 15.4 % (13.2-15.2) H 10/18/19 08:41 Plt Count 150 K/mm3 (140-440) 10/18/19 08:41 Lymph % (Auto) 12.2 % (13.4-35.0) L 10/18/19 08:41 [place] % (Auto) 4.8 % (0.0-7.3) 10/18/19 08:41 Eos % (Auto) 0.2 % (0.0-4.3) 10/18/19 08:41 Baso % (Auto) 0.4 % (0.0-1.8) 10/18/19 08:41 Lymph # 0.9 K/mm3 (1.2-5.4) L 10/18/19 08:41 [place] # 0.4 K/mm3 (0.0-0.8) 10/18/19 08:41 Eos # 0.0 K/mm3 (0.0-0.4) 10/18/19 08:41 Baso # 0.0 K/mm3 (0.0-0.1) 10/18/19 08:41 Seg Neutrophils % 82.4 % (40.0-70.0) H 10/18/19 08:41 Seg Neutrophils # 6.2 K/mm3 (1.8-7.7) 10/18/19 08:41 POC ABG pH 7.203 (7.35-7.45) L 10/17/19 08:48 POC ABG pCO2 29.9 (35-45) L 10/17/19 08:48 POC ABG pO2 69 (80-105) L 10/17/19 08:48 POC ABG HCO3 11.7 (22-26 mml/L) 10/17/19 08:48 POC ABG Total CO2 13 (23-27mmol/L) 10/17/19 08:48 POC ABG O2 Sat 90 10/17/19 08:48 POC ABG Base Excess -16 ((-2) - (+3)mmol/L) 10/17/19 08:48 FiO2 21 % 10/17/19 08:48 Sodium 139 mmol/L (137-145) 10/18/19 08:41 Potassium 3.6 mmol/L (3.6-5.0) 10/18/19 08:41 Chloride 96.2 mmol/L (98-107) L 10/18/19 08:41 Carbon Dioxide 21 mmol/L (22-30) L 10/18/19 08:41 Anion Gap 25 mmol/L 10/18/19 08:41 BUN 22 mg/dL (9-20) H 10/18/19 08:41 Creatinine 1.2 mg/dL (0.8-1.5) 10/18/19 08:41 Estimated GFR > 60 ml/min 10/18/19 08:41 BUN/Creatinine Ratio 18 % 10/18/19 08:41 Glucose 111 mg/dL (75-100) H 10/18/19 08:41 POC Glucose 101 (70-105) 10/17/19 21:30 Lactic Acid 1.90 mmol/L (0.7-2.0) 10/17/19 13:58 Calcium 9.1 mg/dL (8.4-10.2) 10/18/19 08:41 Phosphorus 1.20 mg/dL (2.5-4.5) L 10/18/19 08:41 Magnesium 2.10 mg/dL (1.7-2.3) 10/18/19 08:41 Total Bilirubin 0.20 mg/dL (0.1-1.2) 10/17/19 05:29 Direct Bilirubin < 0.2 mg/dL (0-0.2) 10/17/19 05:29 Indirect Bilirubin 0.0 mg/dL 10/17/19 05:29 AST 46 units/L (5-40) H 10/17/19 05:29 ALT 10 units/L (7-56) 10/17/19 05:29 Alkaline Phosphatase 86 units/L (35-129) 10/17/19 05:29 Ammonia 44.0 umol/L (25-60) 10/17/19 17:32 Total Creatine Kinase 110 units/L (55-170) 10/17/19 10:47 Total Protein 8.7 g/dL (6.3-8.2) H 10/17/19 05:29 Albumin 4.3 g/dL (3.9-5) 10/17/19 05:29 Albumin/Globulin Ratio 1.0 % 10/17/19 05:29 TSH 0.565 mlU/mL (0.270-4.200) 10/17/19 07:12 Urine Color Straw (Yellow) 10/17/19 10:45 Urine Turbidity Clear (Clear) 10/17/19 10:45 Urine pH 6.0 (5.0-7.0) 10/17/19 10:45 Ur Specific [place] 1.009 (1.003-1.030) 10/17/19 10:45 Urine Protein 30 mg/dl mg/dL (Negative) 10/17/19 10:45 Urine Glucose (UA) Neg mg/dL (Negative) 10/17/19 10:45 Urine Ketones Neg mg/dL (Negative) 10/17/19 10:45 Urine Blood Mod (Negative) 10/17/19 10:45 Urine Nitrite Neg (Negative) 10/17/19 10:45 Urine Bilirubin Neg (Negative) 10/17/19 10:45 Urine Urobilinogen < 2.0 mg/dL (<2.0) 10/17/19 10:45 Ur Leukocyte Esterase Neg (Negative) 10/17/19 10:45 Urine WBC (Auto) 2.0 /HPF (0.0-6.0) 10/17/19 10:45 Urine RBC (Auto) 2.0 /HPF (0.0-6.0) 10/17/19 10:45 Urine Bacteria (Auto) 1+ /HPF (Negative) 10/17/19 10:45 Hyaline Casts 3 /LPF 10/17/19 10:45 Urine Eosinophils None seen (None Seen) 10/17/19 10:45 Urine Creatinine 60.9 mg/dL (0.1-20.0) H 10/17/19 10:45 Urine Sodium 129 mmol/L 10/17/19 10:45 Urine Opiates Screen Presumptive negative 10/17/19 08:58 Urine Methadone Screen Presumptive negative 10/17/19 08:58 Ur Barbiturates Screen Presumptive negative 10/17/19 08:58 Ur Phencyclidine Scrn Presumptive negative 10/17/19 08:58 Ur Amphetamines Screen Presumptive negative 10/17/19 08:58 U Benzodiazepines Scrn Presumptive negative 10/17/19 08:58 Urine Cocaine Screen Presumptive negative 10/17/19 08:58 U Marijuana (THC) Screen Presumptive negative 10/17/19 08:58 Drugs of Abuse Note Disclamer 10/17/19 08:58 Plasma/Serum Alcohol 0.06 % (0-0.07) 10/17/19 05:21 Active Medications - Current Medications Current Medications: Generic Name Dose Route Start Last Admin Trade Name Freq PRN Reason Stop Dose Admin Acetaminophen 500 mg 10/17/19 14:53 10/17/19 16:13 Tylenol PO 500 mg Q6HR PRN Administration Pain , Severe (7-10) Albuterol 2.5 mg 10/17/19 16:52 Proventil IH Q4HRT PRN Shortness Of Breath Hydralazine HCl 25 mg 10/17/19 15:00 10/18/19 21:08 Apresoline PO 25 mg Q8HR TIERRA Administration Lactulose 20 gm 10/17/19 12:00 10/19/19 00:08 Cephulac PO Not Given Q6HR TIERRA Levetiracetam 1,000 mg 10/17/19 22:00 10/18/19 21:08 Keppra PO 1,000 mg BID TIERRA Administration Metoprolol Tartrate 25 mg 10/17/19 15:00 10/18/19 21:08 Metoprolol PO 25 mg BID TIERRA Administration Ondansetron HCl 4 mg 10/17/19 16:52 10/18/19 05:11 Zofran IV 4 mg Q8H PRN Administration Nausea And Vomiting Sodium Chloride 10 ml 10/17/19 22:00 10/18/19 21:09 Sodium Chloride Flush Syringe 10 Ml IV 10 ml BID TIERRA Administration Sodium Chloride 10 ml 10/17/19 16:52 Sodium Chloride Flush Syringe 10 Ml IV PRN PRN LINE FLUSH
[2019-10-19 08:22] LABS: Alanine Aminotransferase 42 units/L (7-56); Albumin 4.1 g/dL (3.9-5); BUN/Creatinine Ratio 18; Blood Urea Nitrogen 25 mg/dL (9-20); Calcium 9.3 mg/dL (8.4-10.2); Hemolysis Index 14
[2019-10-19] MEDS: levETIRAcetam 500 MG TAB PO SCH ×2 (10:37→22:56)
[2019-10-19] MEDS: METOPROLOL TARTRATE 25 MG TAB PO SCH ×2 (10:40→22:55)
[2019-10-19] MEDS ORDERED: LORazepam 2 MG/ML VIAL IV PRN ×2 (12:09)
--- NOTE | 2019-10-19 12:49 | Progress Note ---
Assessment and Plan Assessment and plan: Acute metabolic encephalopathy Admitted to tele Neurochecks Post ictal state after seizures Breakthrough seizures rubia Alcohol withdrawal syndrome Start CIWA protocol Ativan prn [place] Resolved Consulted and discussed with Nephrology Nephrology following metabolic acidosis Completed Bicarb drip Hypertension Monitor BP lactic acidosis from seizures repeat was normal Alcohol abuse. I counseled him on quitting Full code status Poss dc in 1-2 days when alcohol withdrawal resolves. History Interval history: Altered mental status had improved but more confused , agitated today Last drink 8 days ago Hospitalist Physical - Physical exam Narrative exam: Gen: Not in acute distress, lying in bed HEENT: Normocephalic, atraumatic Neck: supple, no JVD Heart: S1 and S2 reg, no murmurs, rubs or gallop Lungs: clear to auscultation bilaterally, no crackles Abd: soft, NT, non distended, normal BS Ext: No edema, no clubbing, no cyanosis Neuro: Awake,alert, confused, agitated, oriented in person, not to place or time, moves all ext - Constitutional Vitals: Temp Pulse Resp BP Pulse Ox 98.2 F 71 19 135/81 95 10/19/19 04:00 10/19/19 10:40 10/19/19 11:00 10/19/19 10:40 10/19/19 11:00 Results - Labs CBC & Chem 7: 10/18/19 08:41 10/19/19 07:27 Labs: Laboratory Last Values WBC 7.5 K/mm3 (4.5-11.0) 10/18/19 08:41 RBC 4.21 M/mm3 (3.65-5.03) 10/18/19 08:41 Hgb 12.4 gm/dl (11.8-15.2) 10/18/19 08:41 Hct 37.8 % (35.5-45.6) 10/18/19 08:41 MCV 90 fl (84-94) 10/18/19 08:41 MCH 30 pg (28-32) 10/18/19 08:41 MCHC 33 % (32-34) 10/18/19 08:41 RDW 15.4 % (13.2-15.2) H 10/18/19 08:41 Plt Count 150 K/mm3 (140-440) 10/18/19 08:41 Lymph % (Auto) 12.2 % (13.4-35.0) L 10/18/19 08:41 [place] % (Auto) 4.8 % (0.0-7.3) 10/18/19 08:41 Eos % (Auto) 0.2 % (0.0-4.3) 10/18/19 08:41 Baso % (Auto) 0.4 % (0.0-1.8) 10/18/19 08:41 Lymph # 0.9 K/mm3 (1.2-5.4) L 10/18/19 08:41 [place] # 0.4 K/mm3 (0.0-0.8) 10/18/19 08:41 Eos # 0.0 K/mm3 (0.0-0.4) 10/18/19 08:41 Baso # 0.0 K/mm3 (0.0-0.1) 10/18/19 08:41 Seg Neutrophils % 82.4 % (40.0-70.0) H 10/18/19 08:41 Seg Neutrophils # 6.2 K/mm3 (1.8-7.7) 10/18/19 08:41 POC ABG pH 7.203 (7.35-7.45) L 10/17/19 08:48 POC ABG pCO2 29.9 (35-45) L 10/17/19 08:48 POC ABG pO2 69 (80-105) L 10/17/19 08:48 POC ABG HCO3 11.7 (22-26 mml/L) 10/17/19 08:48 POC ABG Total CO2 13 (23-27mmol/L) 10/17/19 08:48 POC ABG O2 Sat 90 10/17/19 08:48 POC ABG Base Excess -16 ((-2) - (+3)mmol/L) 10/17/19 08:48 FiO2 21 % 10/17/19 08:48 Sodium 136 mmol/L (137-145) L 10/19/19 07:27 Potassium 3.3 mmol/L (3.6-5.0) L 10/19/19 07:27 Chloride 91.7 mmol/L (98-107) L 10/19/19 07:27 Carbon Dioxide 24 mmol/L (22-30) 10/19/19 07:27 Anion Gap 24 mmol/L 10/19/19 07:27 BUN 25 mg/dL (9-20) H 10/19/19 07:27 Creatinine 1.4 mg/dL (0.8-1.5) 10/19/19 07:27 Estimated GFR > 60 ml/min 10/19/19 07:27 BUN/Creatinine Ratio 18 % 10/19/19 07:27 Glucose 85 mg/dL (75-100) 10/19/19 07:27 POC Glucose 101 (70-105) 10/17/19 21:30 Lactic Acid 1.90 mmol/L (0.7-2.0) 10/17/19 13:58 Calcium 9.3 mg/dL (8.4-10.2) 10/19/19 07:27 Phosphorus 3.00 mg/dL (2.5-4.5) D 10/19/19 07:27 Magnesium 2.10 mg/dL (1.7-2.3) 10/18/19 08:41 Total Bilirubin 1.20 mg/dL (0.1-1.2) 10/19/19 07:27 Direct Bilirubin < 0.2 mg/dL (0-0.2) 10/17/19 05:29 Indirect Bilirubin 0.0 mg/dL 10/17/19 05:29 AST 247 units/L (5-40) H 10/19/19 07:27 ALT 42 units/L (7-56) 10/19/19 07:27 Alkaline Phosphatase 76 units/L (35-129) 10/19/19 07:27 Ammonia 34.0 umol/L (25-60) 10/19/19 07:27 Total Creatine Kinase 110 units/L (55-170) 10/17/19 10:47 Total Protein 9.1 g/dL (6.3-8.2) H 10/19/19 07:27 Albumin 4.1 g/dL (3.9-5) 10/19/19 07:27 Albumin/Globulin Ratio 0.8 % 10/19/19 07:27 TSH 0.565 mlU/mL (0.270-4.200) 10/17/19 07:12 Urine Color Straw (Yellow) 10/17/19 10:45 Urine Turbidity Clear (Clear) 10/17/19 10:45 Urine pH 6.0 (5.0-7.0) 10/17/19 10:45 Ur Specific [place] 1.009 (1.003-1.030) 10/17/19 10:45 Urine Protein 30 mg/dl mg/dL (Negative) 10/17/19 10:45 Urine Glucose (UA) Neg mg/dL (Negative) 10/17/19 10:45 Urine Ketones Neg mg/dL (Negative) 10/17/19 10:45 Urine Blood Mod (Negative) 10/17/19 10:45 Urine Nitrite Neg (Negative) 10/17/19 10:45 Urine Bilirubin Neg (Negative) 10/17/19 10:45 Urine Urobilinogen < 2.0 mg/dL (<2.0) 10/17/19 10:45 Ur Leukocyte Esterase Neg (Negative) 10/17/19 10:45 Urine WBC (Auto) 2.0 /HPF (0.0-6.0) 10/17/19 10:45 Urine RBC (Auto) 2.0 /HPF (0.0-6.0) 10/17/19 10:45 Urine Bacteria (Auto) 1+ /HPF (Negative) 10/17/19 10:45 Hyaline Casts 3 /LPF 10/17/19 10:45 Urine Eosinophils None seen (None Seen) 10/17/19 10:45 Urine Creatinine 60.9 mg/dL (0.1-20.0) H 10/17/19 10:45 Urine Sodium 129 mmol/L 10/17/19 10:45 Urine Opiates Screen Presumptive negative 10/17/19 08:58 Urine Methadone Screen Presumptive negative 10/17/19 08:58 Ur Barbiturates Screen Presumptive negative 10/17/19 08:58 Ur Phencyclidine Scrn Presumptive negative 10/17/19 08:58 Ur Amphetamines Screen Presumptive negative 10/17/19 08:58 U Benzodiazepines Scrn Presumptive negative 10/17/19 08:58 Urine Cocaine Screen Presumptive negative 10/17/19 08:58 U Marijuana (THC) Screen Presumptive negative 10/17/19 08:58 Drugs of Abuse Note Disclamer 10/17/19 08:58 Plasma/Serum Alcohol 0.06 % (0-0.07) 10/17/19 05:21 Active Medications - Current Medications Current Medications: Generic Name Dose Route Start Last Admin Trade Name Freq PRN Reason Stop Dose Admin Acetaminophen 500 mg 10/17/19 14:53 10/17/19 16:13 Tylenol PO 500 mg Q6HR PRN Administration Pain , Severe (7-10) Albuterol 2.5 mg 10/17/19 16:52 Proventil IH Q4HRT PRN Shortness Of Breath Hydralazine HCl 25 mg 10/17/19 15:00 10/18/19 21:08 Apresoline PO 25 mg Q8HR TIERRA Administration Dextrose/Sodium Chloride 1,000 mls @ 75 mls/hr 10/19/19 13:00 D5ns IV DIRECT TIERRA Levetiracetam 1,000 mg 10/17/19 22:00 10/19/19 10:37 Keppra PO 1,000 mg BID TIERRA Administration Lorazepam 2 mg 10/19/19 12:09 Ativan IV Q1H PRN CIWA-Ar 8-15 Lorazepam 4 mg 10/19/19 12:09 Ativan IV Q1H PRN CIWA-Ar 16-25 Lorazepam 4 mg 10/19/19 12:09 Ativan IV Q15MIN PRN CIWA-Ar >25 Metoprolol Tartrate 25 mg 10/17/19 15:00 10/19/19 10:40 Metoprolol PO 25 mg BID TIERRA Administration Ondansetron HCl 4 mg 10/17/19 16:52 10/18/19 05:11 Zofran IV 4 mg Q8H PRN Administration Nausea And Vomiting Sodium Chloride 10 ml 10/17/19 22:00 10/19/19 10:37 Sodium Chloride Flush Syringe 10 Ml IV 10 ml BID TIERRA Administration Sodium Chloride 10 ml 10/17/19 16:52 Sodium Chloride Flush Syringe 10 Ml IV PRN PRN LINE FLUSH
[2019-10-19] MEDS: D5W/0.9% NACL 1,000 ML IV SCH (13:58)
[2019-10-19] MEDS: hydrALAZINE 25 MG TAB PO SCH ×2 (14:12→22:55)
--- NOTE | 2019-10-19 14:46 | Progress Note ---
Assessment and Plan 1. Acute kidney injury: Vasomotor [place] in the setting of volume depletion. UA bland. Renal function is better. Monitor renal function. Avoid nephrotoxic agents. Meds dosage based on GFR. 2. FEN: Anion-gap Metabolic acidosis, 2/2 Lactic acidosis due to post-ictal state. Improving. Hypokalemia, replete K. Monitor lytes. 3. Encephalopathy. 4. Hypertension: Resume home BP meds. Hold Lisinopril for now. Monitor BP. Examination: General appearance: well-developed, appears stated age, no distress, on restrains HEENT: ATNC, MLEBA Neck: neck supple, trachea midline Respiratory: Clear to Ascultation Heart: regular, S1S2, no murmur Gastrointestinal: normoactive bowel sounds, not tender, not distended Integumentary: no rash, warm and dry Neurologic: confused, able to move extremities Ext: no edema Subjective Date of service: 10/19/19 Interval history: The patient was seen and examined at the bedside. Objective - Vital Signs Vital signs: Vital Signs - 12hr 10/19/19 10/19/19 10/19/19 03:31 04:00 10:40 Temperature 98.7 F 98.2 F Pulse Rate 88 71 Respiratory 18 18 Rate Blood Pressure 159/95 135/81 O2 Sat by Pulse 99 Oximetry 10/19/19 11:00 Temperature Pulse Rate Respiratory 19 Rate Blood Pressure O2 Sat by Pulse 95 Oximetry - Lab 10/18/19 08:41 10/19/19 07:27 Most recent lab results Calcium 9.3 mg/dL (8.4-10.2) 10/19/19 07:27 Phosphorus 3.00 mg/dL (2.5-4.5) D 10/19/19 07:27 Magnesium 2.10 mg/dL (1.7-2.3) 10/18/19 08:41 Urine Creatinine 60.9 mg/dL (0.1-20.0) H 10/17/19 10:45 Urine Sodium 129 mmol/L 10/17/19 10:45 Medications & Allergies - Medications Allergies/Adverse Reactions: Allergies pork derived (porcine) Allergy (Verified 02/15/17 07:26) Rash shellfish derived Allergy (Verified 02/15/17 07:26) Hives Home Medications: Home Medications Medication Instructions Recorded Confirmed Last Taken Type Lisinopril [Zestril TAB] 20 mg PO QDAY #30 tablet 02/17/17 10/17/19 10/15/19 Rx Metoprolol [Lopressor TAB] 25 mg PO BID #60 tablet 02/17/17 10/17/19 10/15/19 Rx Potassium Chloride [K-Dur] 20 meq PO BID #6 tab 03/20/19 10/17/19 10/15/19 Rx hydrALAZINE [Apresoline TAB] 25 mg PO Q8HR #90 tablet 03/20/19 10/17/19 10/15/19 Rx levETIRAcetam [Keppra TAB] 1,000 mg PO BID #60 tablet 03/20/19 10/17/19 10/15/19 Rx Acetaminophen [Non-Aspirin Extra 500 mg PO Q6HR PRN #30 tablet 04/06/19 10/17/19 Unknown Rx Strength] Ibuprofen [Motrin] 600 mg PO Q8H PRN #30 tablet 04/06/19 10/17/19 Unknown Rx Magnesium Oxide 500 mg PO BID #20 capsule 04/06/19 10/17/19 10/15/19 Rx Active Medications: Generic Name Dose Route Start Last Admin Trade Name Freq PRN Reason Stop Dose Admin Acetaminophen 500 mg 10/17/19 14:53 10/17/19 16:13 Tylenol PO 500 mg Q6HR PRN Administration Pain , Severe (7-10) Albuterol 2.5 mg 10/17/19 16:52 Proventil IH Q4HRT PRN Shortness Of Breath Hydralazine HCl 25 mg 10/17/19 15:00 10/19/19 14:12 Apresoline PO Not Given Q8HR TIERRA Dextrose/Sodium Chloride 1,000 mls @ 75 mls/hr 10/19/19 13:00 10/19/19 13:58 D5ns IV 75 mls/hr DIRECT TIERRA Administration Levetiracetam 1,000 mg 10/17/19 22:00 10/19/19 10:37 Keppra PO 1,000 mg BID TIERRA Administration Lorazepam 2 mg 10/19/19 12:09 Ativan IV Q1H PRN CIWA-Ar 8-15 Lorazepam 4 mg 10/19/19 12:09 Ativan IV Q1H PRN CIWA-Ar 16-25 Lorazepam 4 mg 10/19/19 12:09 Ativan IV Q15MIN PRN CIWA-Ar >25 Metoprolol Tartrate 25 mg 10/17/19 15:00 10/19/19 10:40 Metoprolol PO 25 mg BID TIERRA Administration Ondansetron HCl 4 mg 10/17/19 16:52 10/18/19 05:11 Zofran IV 4 mg Q8H PRN Administration Nausea And Vomiting Sodium Chloride 10 ml 10/17/19 22:00 10/19/19 10:37 Sodium Chloride Flush Syringe 10 Ml IV 10 ml BID TIERRA Administration Sodium Chloride 10 ml 10/17/19 16:52 Sodium Chloride Flush Syringe 10 Ml IV PRN PRN LINE FLUSH
[2019-10-19] MEDS: LORazepam 2 MG/ML VIAL IV PRN ×2 (16:00→23:01)
[2019-10-19] MEDS ORDERED: POTASSIUM CHLORIDE ER 20 MEQ TAB PO ONE (21:41)
[2019-10-20] MEDS: LORazepam 2 MG/ML VIAL IV PRN ×2 (06:35→21:20)
[2019-10-20] MEDS: hydrALAZINE 25 MG TAB PO SCH ×3 (06:35→21:20)
[2019-10-20 09:19] LABS: BUN/Creatinine Ratio 21; Blood Urea Nitrogen 21 mg/dL (9-20); Hemolysis Index 10
[2019-10-20] MEDS: MULTIVITAMINS ,THERAPEUTIC TAB PO SCH (11:42)
[2019-10-20] MEDS: levETIRAcetam 500 MG TAB PO SCH ×2 (11:42→21:23)
[2019-10-20] MEDS: METOPROLOL TARTRATE 25 MG TAB PO SCH ×2 (11:46→21:22)
[2019-10-20] MEDS: FOLIC ACID 1 MG in SODIUM CHLORIDE 0.9% 50 ML IV SCH (12:28)
[2019-10-20] MEDS: D5W/0.9% NACL 1,000 ML IV SCH (12:30)
[2019-10-20] MEDS: THIAMINE 100 MG in SODIUM CHLORIDE 0.9% 50 ML IV SCH (13:04)
--- NOTE | 2019-10-20 14:11 | Progress Note ---
Assessment and Plan 1. Acute kidney injury: Vasomotor [place] in the setting of volume depletion. UA bland. Renal function is better. Monitor renal function. Avoid nephrotoxic agents. Meds dosage based on GFR. 2. FEN: Anion-gap Metabolic acidosis, 2/2 Lactic acidosis. Improved. Hypokalemia, replete K as needed. Monitor lytes. 3. Encephalopathy. 4. Hypertension: BP controlled. Monitor BP. Examination: General appearance: well-developed, appears stated age, no distress HEENT: ATNC, MELBA Neck: neck supple, trachea midline Respiratory: Clear to Ascultation Heart: regular, S1S2, no murmur Gastrointestinal: normoactive bowel sounds, not tender, not distended Integumentary: no rash, warm and dry Neurologic: confused, able to move extremities Ext: no edema Subjective Date of service: 10/20/19 Interval history: The patient was seen and examined at the bedside. Objective - Vital Signs Vital signs: Vital Signs - 12hr 10/20/19 10/20/19 10/20/19 03:37 06:35 08:09 Temperature 97.5 F L 98.6 F Pulse Rate 88 88 89 Respiratory 20 18 Rate Blood Pressure 141/91 141/91 145/87 O2 Sat by Pulse 98 97 Oximetry 10/20/19 10/20/19 11:42 11:46 Temperature Pulse Rate 98 H 98 H Respiratory Rate Blood Pressure O2 Sat by Pulse Oximetry - Lab 10/18/19 08:41 10/20/19 08:06 Most recent lab results Calcium 9.0 mg/dL (8.4-10.2) 10/20/19 08:06 Phosphorus 3.00 mg/dL (2.5-4.5) D 10/19/19 07:27 Magnesium 2.10 mg/dL (1.7-2.3) 10/18/19 08:41 Urine Creatinine 60.9 mg/dL (0.1-20.0) H 10/17/19 10:45 Urine Sodium 129 mmol/L 10/17/19 10:45 Medications & Allergies - Medications Allergies/Adverse Reactions: Allergies pork derived (porcine) Allergy (Verified 02/15/17 07:26) Rash shellfish derived Allergy (Verified 02/15/17 07:26) Hives Home Medications: Home Medications Medication Instructions Recorded Confirmed Last Taken Type Lisinopril [Zestril TAB] 20 mg PO QDAY #30 tablet 02/17/17 10/17/19 10/15/19 Rx Metoprolol [Lopressor TAB] 25 mg PO BID #60 tablet 02/17/17 10/17/19 10/15/19 Rx Potassium Chloride [K-Dur] 20 meq PO BID #6 tab 03/20/19 10/17/19 10/15/19 Rx hydrALAZINE [Apresoline TAB] 25 mg PO Q8HR #90 tablet 03/20/19 10/17/19 10/15/19 Rx levETIRAcetam [Keppra TAB] 1,000 mg PO BID #60 tablet 03/20/19 10/17/19 10/15/19 Rx Acetaminophen [Non-Aspirin Extra 500 mg PO Q6HR PRN #30 tablet 04/06/19 10/17/19 Unknown Rx Strength] Ibuprofen [Motrin] 600 mg PO Q8H PRN #30 tablet 04/06/19 10/17/19 Unknown Rx Magnesium Oxide 500 mg PO BID #20 capsule 04/06/19 10/17/19 10/15/19 Rx Active Medications: Generic Name Dose Route Start Last Admin Trade Name Freq PRN Reason Stop Dose Admin Acetaminophen 500 mg 10/17/19 14:53 10/17/19 16:13 Tylenol PO 500 mg Q6HR PRN Administration Pain , Severe (7-10) Albuterol 2.5 mg 10/17/19 16:52 Proventil IH Q4HRT PRN Shortness Of Breath Hydralazine HCl 25 mg 10/17/19 15:00 10/20/19 11:42 Apresoline PO 25 mg Q8HR TIERRA Administration Dextrose/Sodium Chloride 1,000 mls @ 75 mls/hr 10/19/19 13:00 10/20/19 12:30 D5ns IV 75 mls/hr DIRECT TIERRA Administration Folic Acid 1 mg/ Sodium 50.2 mls @ 200.8 mls/hr 10/20/19 10:00 10/20/19 12:28 Chloride IV 200.8 mls/hr QDAY TIERRA Administration Thiamine HCl 100 mg/ Sodium 51 mls @ 100 mls/hr 10/20/19 10:00 10/20/19 13:04 Chloride IV 100 mls/hr QDAY TIERRA Administration Levetiracetam 1,000 mg 10/17/19 22:00 10/20/19 11:42 Keppra PO 1,000 mg BID TIERRA Administration Lorazepam 2 mg 10/19/19 12:09 10/20/19 06:35 Ativan IV 2 mg Q1H PRN Administration CIWA-Ar 8-15 Lorazepam 4 mg 10/19/19 12:09 Ativan IV Q1H PRN CIWA-Ar 16-25 Lorazepam 4 mg 10/19/19 12:09 Ativan IV Q15MIN PRN CIWA-Ar >25 Metoprolol Tartrate 25 mg 10/17/19 15:00 10/20/19 11:46 Metoprolol PO 25 mg BID TIERRA Administration Multivitamins 1 each 10/20/19 10:00 10/20/19 11:42 Theragran Tab PO 1 each QDAY TIERRA Administration Ondansetron HCl 4 mg 10/17/19 16:52 10/18/19 05:11 Zofran IV 4 mg Q8H PRN Administration Nausea And Vomiting Sodium Chloride 10 ml 10/17/19 22:00 10/20/19 13:03 Sodium Chloride Flush Syringe 10 Ml IV 10 ml BID TIERRA Administration Sodium Chloride 10 ml 10/17/19 16:52 Sodium Chloride Flush Syringe 10 Ml IV PRN PRN LINE FLUSH
--- NOTE | 2019-10-20 16:45 | Progress Note ---
Assessment and Plan Acute metabolic encephalopathy Neurochecks Post ictal state from seizures Breakthrough seizures Continue keppra Hypokalemia corrected Alcohol withdrawal syndrome Start CIWA protocol Ativan prn [place] Resolved Consulted and discussed with Nephrology Nephrology following metabolic acidosis Completed Bicarb drip Hypertension Monitor BP lactic acidosis from seizures repeat was normal Alcohol abuse. counseled him on quitting Full code status Subjective Date of service: 10/20/19 Principal diagnosis: Metabolic encephalopathy, alcohol with drawal, Seizure d/o Interval history: Patient seen and examined no distress. Confused Objective - Exam Narrative Exam: Constitutional: Well-nourished well-developed. In no distress Head: Normocephalic atraumatic Eyes: Pupils are equal round and reactive to light Nose: No enlarged turbinates, no septal deviation. Mouth: Moist mucous membranes. Neck: Supple no thyromegaly. No bruit. No JVD Heart: Regular rate and rhythm, S1-S2 normal. No rubs murmurs or gallop Lungs: Clear to auscultation bilaterally. no rales or rhonchi Abdomen: Soft, nontender. Bowel sound are present. Extremities: No edema, no cyanosis, no clubbing. Neuro: Confused. No focal sensory or motor deficit. Skin: No rashes or hyperpigmented spots Musculoskeletal system: No joint pain or swelling Hematological: No petechia or subcutanous hemorrhages. Immunological: No multiple septic spots on the skin Lymphatic: No generalized lymphadenopathy Psychiatry: Euthymic. Calm. - Constitutional Vitals: Vital Signs - 12hr 10/20/19 10/20/19 10/20/19 06:35 08:09 11:42 Temperature 98.6 F Pulse Rate 88 89 98 H Respiratory 18 Rate Blood Pressure 141/91 145/87 O2 Sat by Pulse 97 Oximetry 10/20/19 10/20/19 11:46 16:19 Temperature 97.9 F Pulse Rate 98 H 84 Respiratory 18 Rate Blood Pressure 136/81 O2 Sat by Pulse 98 Oximetry - Labs CBC & Chem 7: 10/18/19 08:41 10/20/19 08:06 Labs: Abnormal lab results 10/20/19 Range/Units 08:06 BUN 21 H (9-20) mg/dL
--- NOTE | 2019-10-20 19:21 | Progress Note ---
Assessment and Plan Acute metabolic encephalopathy Neurochecks Post ictal state after seizures Breakthrough seizures keppra Hypokalemia corrected Alcohol withdrawal syndrome Start CIWA protocol Ativan prn [place] Resolved Consulted and discussed with Nephrology Nephrology following metabolic acidosis Completed Bicarb drip Hypertension Monitor BP lactic acidosis from seizures repeat was normal Alcohol abuse. counseled him on quitting Full code status Subjective Date of service: 10/20/19 Principal diagnosis: acute injury, alcohol withdrawal, Interval history: Patient seen and examined no distress. Confused Objective - Exam Narrative Exam: Constitutional: Well-nourished well-developed. In no distress Head: Normocephalic atraumatic Eyes: Pupils are equal round and reactive to light Nose: No enlarged turbinates, no septal deviation. Mouth: Moist mucous membranes. Neck: Supple no thyromegaly. No bruit. No JVD Heart: Regular rate and rhythm, S1-S2 normal. No rubs murmurs or gallop Lungs: Clear to auscultation bilaterally. no rales or rhonchi Abdomen: Soft, nontender. Bowel sound are present. Extremities: No edema, no cyanosis, no clubbing. Neuro: Confused. No focal sensory or motor deficit. Skin: No rashes or hyperpigmented spots Musculoskeletal system: No joint pain or swelling Hematological: No petechia or subcutanous hemorrhages. Immunological: No multiple septic spots on the skin Lymphatic: No generalized lymphadenopathy Psychiatry: Euthymic. Calm. - Constitutional Vitals: Vital Signs - 12hr 10/20/19 10/20/19 10/20/19 08:09 11:42 11:46 Temperature 98.6 F Pulse Rate 89 98 H 98 H Respiratory 18 Rate Blood Pressure 145/87 O2 Sat by Pulse 97 Oximetry 10/20/19 16:19 Temperature 97.9 F Pulse Rate 84 Respiratory 18 Rate Blood Pressure 136/81 O2 Sat by Pulse 98 Oximetry - Labs CBC & Chem 7: 10/18/19 08:41 10/20/19 08:06 Labs: Abnormal lab results 10/20/19 Range/Units 08:06 BUN 21 H (9-20) mg/dL
[2019-10-21] MEDS: hydrALAZINE 25 MG TAB PO SCH ×2 (07:21→13:22)
--- NOTE | 2019-10-21 09:46 | Progress Note ---
Assessment and Plan 1. Acute kidney injury: Vasomotor [place] in the setting of volume depletion. UA bland. Renal function is better. Monitor renal function. Avoid nephrotoxic agents. Meds dosage based on GFR. 2. FEN: Anion-gap Metabolic acidosis, 2/2 Lactic acidosis. Improved. Hypokalemia, replete K as needed. Monitor lytes. 3. Encephalopathy. 4. Hypertension: Monitor BP. Examination: General appearance: well-developed, appears stated age, no distress HEENT: ATNC, MELBA Neck: neck supple, trachea midline Respiratory: Clear to Ascultation Heart: regular, S1S2, no murmur Gastrointestinal: normoactive bowel sounds, not tender, not distended Integumentary: no rash, warm and dry Neurologic: confused, able to move extremities Ext: no edema Subjective Date of service: 10/21/19 Principal diagnosis: acute injury, alcohol withdrawal, Interval history: The patient was seen and examined at the bedside. Objective - Vital Signs Vital signs: Vital Signs - 12hr 10/20/19 10/20/19 10/21/19 23:00 23:08 03:15 Temperature 98.0 F 97.7 F Pulse Rate 81 95 H Respiratory 20 16 16 Rate Respiratory 20 Rate [Head] Blood Pressure 170/107 134/80 O2 Sat by Pulse 96 96 97 Oximetry 10/21/19 10/21/19 10/21/19 04:00 07:21 07:55 Temperature 98.5 F Pulse Rate 95 H 95 H Respiratory 18 Rate Respiratory Rate [Head] Blood Pressure 134/80 158/78 O2 Sat by Pulse 95 Oximetry - Lab 10/18/19 08:41 10/20/19 08:06 Most recent lab results Calcium 9.0 mg/dL (8.4-10.2) 10/20/19 08:06 Phosphorus 3.00 mg/dL (2.5-4.5) D 10/19/19 07:27 Magnesium 2.10 mg/dL (1.7-2.3) 10/18/19 08:41 Urine Creatinine 60.9 mg/dL (0.1-20.0) H 10/17/19 10:45 Urine Sodium 129 mmol/L 10/17/19 10:45 Medications & Allergies - Medications Allergies/Adverse Reactions: Allergies pork derived (porcine) Allergy (Verified 04/07/17 07:26) Rash shellfish derived Allergy (Verified 02/15/17 07:26) Hives Home Medications: Home Medications Medication Instructions Recorded Confirmed Last Taken Type Lisinopril [Zestril TAB] 20 mg PO QDAY #30 tablet 02/17/17 10/17/19 10/15/19 Rx Metoprolol [Lopressor TAB] 25 mg PO BID #60 tablet 02/17/17 10/17/19 10/15/19 Rx Potassium Chloride [K-Dur] 20 meq PO BID #6 tab 03/20/19 10/17/19 10/15/19 Rx hydrALAZINE [Apresoline TAB] 25 mg PO Q8HR #90 tablet 03/20/19 10/17/19 10/15/19 Rx levETIRAcetam [Keppra TAB] 1,000 mg PO BID #60 tablet 03/20/19 10/17/19 10/15/19 Rx Acetaminophen [Non-Aspirin Extra 500 mg PO Q6HR PRN #30 tablet 04/06/19 10/17/19 Unknown Rx Strength] Ibuprofen [Motrin] 600 mg PO Q8H PRN #30 tablet 04/06/19 10/17/19 Unknown Rx Magnesium Oxide 500 mg PO BID #20 capsule 04/06/19 10/17/19 10/15/19 Rx Active Medications: Generic Name Dose Route Start Last Admin Trade Name Kikoq PRN Reason Stop Dose Admin Acetaminophen 500 mg 10/17/19 14:53 10/17/19 16:13 Tylenol PO 500 mg Q6HR PRN Administration Pain , Severe (7-10) Albuterol 2.5 mg 10/17/19 16:52 Proventil IH Q4HRT PRN Shortness Of Breath Hydralazine HCl 25 mg 10/17/19 15:00 10/21/19 07:21 Apresoline PO 25 mg Q8HR TIERRA Administration Dextrose/Sodium Chloride 1,000 mls @ 75 mls/hr 10/19/19 13:00 10/20/19 12:30 D5ns IV 75 mls/hr DIRECT TIERRA Administration Folic Acid 1 mg/ Sodium 50.2 mls @ 200.8 mls/hr 10/20/19 10:00 10/20/19 12:28 Chloride IV 200.8 mls/hr QDAY TIERRA Administration Thiamine HCl 100 mg/ Sodium 51 mls @ 100 mls/hr 10/20/19 10:00 10/20/19 13:04 Chloride IV 100 mls/hr QDAY TIERRA Administration Levetiracetam 1,000 mg 10/17/19 22:00 10/20/19 21:23 Keppra PO 1,000 mg BID TIERRA Administration Lorazepam 2 mg 10/19/19 12:09 10/20/19 21:20 Ativan IV 2 mg Q1H PRN Administration CIWA-Ar 8-15 Lorazepam 4 mg 10/19/19 12:09 Ativan IV Q1H PRN CIWA-Ar 16-25 Lorazepam 4 mg 10/19/19 12:09 Ativan IV Q15MIN PRN CIWA-Ar >25 Metoprolol Tartrate 25 mg 10/17/19 15:00 10/20/19 21:22 Metoprolol PO 25 mg BID TIERRA Administration Multivitamins 1 each 10/20/19 10:00 10/20/19 11:42 Theragran Tab PO 1 each QDAY TIERRA Administration Ondansetron HCl 4 mg 10/17/19 16:52 10/18/19 05:11 Zofran IV 4 mg Q8H PRN Administration Nausea And Vomiting Sodium Chloride 10 ml 10/17/19 22:00 10/20/19 21:23 Sodium Chloride Flush Syringe 10 Ml IV 10 ml BID TIERRA Administration Sodium Chloride 10 ml 10/17/19 16:52 Sodium Chloride Flush Syringe 10 Ml IV PRN PRN LINE FLUSH
--- NOTE | 2019-10-21 10:13 | Discharge Summary ---
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 He was brought in for altered mental status. He states he believes he had a breakthrough seizure. Patient is on Keppra for seizure disorder and states he has been compliant with medications. He denied headache, no vomiting, no chest pain. He was seen and evaluated in ED. Labs show severe metabolic acidosis with Bicarb of 4, acute kidney injury with Creatinine of 1.9 and hyperkalemia. Also ammonia level was elevated. He was started on keppra, Bicarb, and admitted to Telemetry. he was evaluated by transportation security screener. Renal function normalized in few days Acute metabolic encephalopathy Now resolved. Post ictal state after seizures, resolved Breakthrough seizures keppra Hypokalemia corrected Alcohol withdrawal syndrome Improved with CIWA protocol with Ativan prn ORVILLE due to vasomotor nephropathy. Treated with iv fluids. Resolved. he was followed by Tag Stringer, Nephrology following metabolic acidosis. Treated with Bicarb drip Hypertension. Monitor BP lactic acidosis from seizures. repeat was normal Alcohol abuse. counseled him on quitting Total time spent on discharge, 34 mins Disposition: DC/TX-06 HOME UNDER HOME HLTH - Discharge Diagnoses (1) Vasomotor nephropathy Status: Acute (2) ORVILLE (acute kidney injury) Status: Acute Comment: Due to vasomotor nephropathy (3) Acute metabolic encephalopathy Status: Acute (4) Breakthrough seizure Status: Acute (5) Seizure disorder Status: Acute (6) Hypertensive urgency Status: Acute (7) Hypokalemia Status: Acute (8) Alcohol withdrawal delirium Status: Acute Core Measure Documentation - Palliative Care Palliative Care/ Comfort Measures: Not Applicable - Core Measures Any of the following diagnoses?: none Exam - Constitutional Vitals: Temp Pulse Resp BP Pulse Ox 98.5 F 95 H 18 158/78 95 10/21/19 07:55 10/21/19 07:21 10/21/19 07:55 10/21/19 07:55 10/21/19 07:55 Plan Activity: no restrictions Diet: low fat, low cholesterol, low salt, renal Plan of Treatment: 1.Follow up with PCP in 1 week. Follow up with: PRIMARY CARE, [Primary Care Provider] - 3-5 Days Prescriptions: Folic Acid 1 mg PO DAILY #30 tablet Hydralazine HCl 50 mg PO TID #90 tablet levETIRAcetam [Keppra TAB] 1,000 mg PO BID #60 tab Multivitamin Tab [Multiple Vitamin TAB (Theragran)] 1 each PO QDAY #30 tablet Thiamine [Vitamin B-1] 100 mg PO QDAY #30 tablet
[2019-10-21 11:37] VITALS: BP 127/80
[2019-10-21] MEDS: MULTIVITAMINS ,THERAPEUTIC TAB PO SCH (13:22)
[2019-10-21] MEDS: METOPROLOL TARTRATE 25 MG TAB PO SCH (13:22)
[2019-10-21] MEDS: FOLIC ACID 1 MG in SODIUM CHLORIDE 0.9% 50 ML IV SCH (13:24)
[2019-10-21] MEDS: THIAMINE 100 MG in SODIUM CHLORIDE 0.9% 50 ML IV SCH (13:24)
== END 2019-10-21 14:30 | disposition home health service (06) | DRG 100 ==
LOC: ED 04:12 → 4A 07:53
PROVIDERS: ADMIT Internal Medicine; ATTEND Internal Medicine
PROC: 4A033R1 Measurement of Arterial Saturation, Peripheral, Percutaneous Approach (ICD-10-PCS; principal; 2019-10-17)
PROC: 3E0234Z Introduction of Serum, Toxoid and Vaccine into Muscle, Percutaneous Approach (ICD-10-PCS; 2019-10-17)
DX: G40.909 Epilepsy, unspecified, not intractable, without status epilepticus (principal); N17.0 Acute kidney failure with tubular necrosis; E87.2 Acidosis; E87.5 Hyperkalemia; F10.10 Alcohol abuse, uncomplicated; Y90.9 Presence of alcohol in blood, level not specified; F17.200 Nicotine dependence, unspecified, uncomplicated; E87.6 Hypokalemia; I10 Essential (primary) hypertension; Z91.013 Allergy to seafood; Z79.899 Other long term (current) drug therapy; Z71.41 Alcohol abuse counseling and surveillance of alcoholic; Z23 Encounter for immunization
CPT/HCPCS: 36415; 70450; 80048; 80053; 80076; 80307; 80320; 81001; 82140; 82550; 82570; 82803; 82962; 83735; 84100; 84300; 84443; 85025; 89050; 90686; 90732; 93005; 93010; 96365; 96375; G0378; G0480; J1953; J2060; J2405; J3411; J3475; J7030; J7040; J7042; J7070

== ENCOUNTER 2019-11-18 07:30 | Observation (INO) | payer MEDICARE ==
[2019-11-18] MEDS ORDERED: LORazepam 2 MG/ML VIAL ONE (08:34)
[2019-11-18] MEDS ORDERED: LORazepam 2 MG/ML VIAL IV ONE (08:35)
--- NOTE | 2019-11-18 10:16 | XRay Report ---
CHEST 1 VIEW INDICATION: Seizure. COMPARISON: 02/15/2017 FINDINGS: SUPPORT DEVICES: None. HEART / MEDIASTINUM: No significant abnormality. LUNGS / PLEURA: No significant pulmonary or pleural abnormality. No pneumothorax. ADDITIONAL FINDINGS: IMPRESSION: 1. No acute findings. Signer Name: Leeroy Meyers MD Signed: 11/18/2019 10:12 AM Workstation Name: [id number]
[2019-11-18] MEDS ORDERED: SODIUM CHLORIDE 0.9% 1000 ML 500 ML IV ONE (10:32)
[2019-11-18] MEDS ORDERED: levETIRAcetam 1,000 MG in DEXTROSE 5% IN WATER 100 ML IV ONE (10:32)
[2019-11-18 10:51] LABS: Basophils # (Auto) 0.1 K/mm3 (0.0-0.1); Basophils % (Auto) 1.2 % (0.0-1.8); Eosinophils % (Auto) 0.1 % (0.0-4.3); Hematocrit 31.4 % (35.5-45.6); Hemoglobin 10.1 gm/dl (11.8-15.2); Lymphocytes # (Auto) 0.3 K/mm3 (1.2-5.4); Lymphocytes % (Auto) 7.6 % (13.4-35.0); Mean Corpuscular HGB Conc 32 % (32-34); Mean Corpuscular Volume 89 fl (84-94); Monocytes # (Auto) 0.3 K/mm3 (0.0-0.8); Monocytes % (Auto) 6.8 % (0.0-7.3); Platelet Count 215 K/mm3 (140-440); Red Blood Count 3.51 M/mm3 (3.65-5.03); Red Cell Distribution Width 17.4 % (13.2-15.2)
[2019-11-18] MEDS ORDERED: levETIRAcetam 1000 MG/NS 0.75% 1,000 MG/100 ML BAG IV ONE (11:00)
[2019-11-18 11:06] LABS: Partial Thromboplastin Time 27.9 Sec. (24.2-36.6)
[2019-11-18 11:12] LABS: Alanine Aminotransferase 7 units/L (7-56); BUN/Creatinine Ratio 23; Blood Urea Nitrogen 23 mg/dL (9-20); Calcium 9.9 mg/dL (8.4-10.2); Hemolysis Index 40
--- NOTE | 2019-11-18 11:33 | Emergency Department Report ---
ED Seizure HPI - General Chief Complaint: Seizure Stated Complaint: SEIZURE Time Seen by Provider: 11/18/19 09:38 Source: patient, EMS Mode of arrival: Stretcher Limitations: Altered Mental Status - History of Present Illness Initial Comments: ER nurse reports patient brought in by EMS for seizures. Reports patient had a seizure in ambulance and ativan was ordered but not administered. MD Complaint: seizure - Related Data Previous Rx's Medication Instructions Recorded Last Taken Type Metoprolol [Lopressor TAB] 25 mg PO BID #60 tablet 02/17/17 10/15/19 Rx Acetaminophen [Non-Aspirin Extra 500 mg PO Q6HR PRN #30 tablet 04/06/19 Unknown Rx Strength] Magnesium Oxide 500 mg PO BID #20 capsule 04/06/19 10/15/19 Rx Folic Acid 1 mg PO DAILY #30 tablet 10/21/19 Unknown Rx Hydralazine HCl 50 mg PO TID #90 tablet 10/21/19 Unknown Rx Multivitamin Tab [Multiple Vitamin 1 each PO QDAY #30 tablet 10/21/19 Unknown Rx TAB (Theragran)] Thiamine [Vitamin B-1] 100 mg PO QDAY #30 tablet 10/21/19 Unknown Rx levETIRAcetam [Keppra TAB] 1,000 mg PO BID #60 tab 10/21/19 Unknown Rx Allergies Allergy/AdvReac Type Severity Reaction Status Date / Time pork derived (porcine) Allergy Rash Verified 11/18/19 08:41 shellfish derived Allergy Hives Verified 11/18/19 08:41 ED Review of Systems ROS: Stated complaint: SEIZURE Other details as noted in HPI Comment: Unobtainable due to pts medical conditions (Altered mental status) ED Past Medical Hx - Past Medical History Previous Medical History?: Yes Hx Hypertension: Yes Hx Seizures: Yes Additional medical history: Gout - Social History Smoking Status: Current Every Day Smoker - Medications Home Medications: Home Medications Medication Instructions Recorded Confirmed Last Taken Type Metoprolol [Lopressor TAB] 25 mg PO BID #60 tablet 02/17/17 10/17/19 10/15/19 Rx Acetaminophen [Non-Aspirin Extra 500 mg PO Q6HR PRN #30 tablet 04/06/19 10/17/19 Unknown Rx Strength] Magnesium Oxide 500 mg PO BID #20 capsule 04/06/19 10/17/19 10/15/19 Rx Folic Acid 1 mg PO DAILY #30 tablet 10/21/19 Unknown Rx Hydralazine HCl 50 mg PO TID #90 tablet 10/21/19 Unknown Rx Multivitamin Tab [Multiple Vitamin 1 each PO QDAY #30 tablet 10/21/19 Unknown Rx TAB (Theragran)] Thiamine [Vitamin B-1] 100 mg PO QDAY #30 tablet 10/21/19 Unknown Rx levETIRAcetam [Keppra TAB] 1,000 mg PO BID #60 tab 10/21/19 Unknown Rx ED Physical Exam - General Limitations: No Limitations - Other Other exam information: GENERAL: Patient in no acute distress HEAD: Normocephalic, atraumatic EYES: PERRLA, EOM intact, no scleral icterus, no conjunctival hemorrhage, visual gunter and acuity wnl NOSE: No tenderness, discharge, sinus tenderness MOUTH: No erythema, bleeding, exudate HEART: Regular rate and rhythm, no murmur, S1-S2 are auscultated, no edema, pulses are symmetric LUNGS: No respiratory distress. Bilateral breath sounds, No tachypnea, No retractions, No wheezing, rales, rhonchi ABDOMEN: Normal bowel sounds, abdomen soft, no tenderness, no rebound, no guarding, no distention, no masses, no CVA tenderness MUSCULOSKELETAL: Normal joint range of motion, no redness, no swelling, no tenderness NEUROLOGIC: GCS 14, Alert and Oriented x0, Cranial nerves intact, normal sensation, normal strength, no cerebellar deficit, NIHSS 0 SKIN: Skin is warm and dry, no wounds, no rashes NEUROLOGIC: normal gait ED Course Vital Signs 11/18/19 07:45 Temperature 97.6 F Pulse Rate 76 Respiratory 16 Rate Blood Pressure 117/67 O2 Sat by Pulse 99 Oximetry ED Medical Decision Making - Lab Data Result diagrams: 11/18/19 10:06 11/18/19 10:06 Laboratory Results - last 24 hr 11/18/19 11/18/19 11/18/19 10:06 10:06 10:06 WBC 4.6 RBC 3.51 L Hgb 10.1 L Hct 31.4 L MCV 89 MCH 29 MCHC 32 RDW 17.4 H Plt Count 215 Lymph % (Auto) 7.6 L Kane % (Auto) 6.8 Eos % (Auto) 0.1 Baso % (Auto) 1.2 Lymph # 0.3 L Kane # 0.3 Eos # 0.0 Baso # 0.1 Seg Neutrophils % 84.3 H Seg Neutrophils # 3.8 PT 13.3 INR 1.00 APTT 27.9 Sodium 144 Potassium 4.3 Chloride 102.1 Carbon Dioxide 20 L Anion Gap 26 BUN 23 H Creatinine 1.0 Estimated GFR > 60 BUN/Creatinine Ratio 23 Glucose 98 Calcium 9.9 Total Bilirubin 0.90 AST 33 ALT 7 Alkaline Phosphatase 62 Total Creatine Kinase 53 L Troponin T < 0.010 Total Protein 9.1 H Albumin 4.0 Albumin/Globulin Ratio 0.8 Plasma/Serum Alcohol 11/18/19 10:06 WBC RBC Hgb Hct MCV MCH MCHC RDW Plt Count Lymph % (Auto) Kane % (Auto) Eos % (Auto) Baso % (Auto) Lymph # Kane # Eos # Baso # Seg Neutrophils % Seg Neutrophils # PT INR APTT Sodium Potassium Chloride Carbon Dioxide Anion Gap BUN Creatinine Estimated GFR BUN/Creatinine Ratio Glucose Calcium Total Bilirubin AST ALT Alkaline Phosphatase Total Creatine Kinase Troponin T Total Protein Albumin Albumin/Globulin Ratio Plasma/Serum Alcohol < 0.01 - EKG Data When compared to previous EKG there are: no significant change - Radiology Data Radiology results: report reviewed - Medical Decision Making Shortly after evaluating patient, I was called to the room where patient was post-ictal concerning for recent tonic-clonic seizure. Concern for status epilepticus. Plan admit for further evaluation. Hospitalists updated and accepts admission. Request neurology consult Dr. Pace. Critical care attestation.: If time is entered above; I have spent that time in minutes in the direct care of this critically ill patient, excluding procedure time. ED Disposition Clinical Impression: Status epilepticus Disposition: OP ADMIT IP TO THIS HOSP Is pt being admited?: Yes Condition: Stable Referrals: PRIMARY CARE, [Primary Care Provider] - 3-5 Days
--- NOTE | 2019-11-18 11:57 | Cat Scan Report ---
CT HEAD WITHOUT CONTRAST INDICATION / CLINICAL INFORMATION: Seizure. TECHNIQUE: Axial imaging performed from the skull apex through the skull base without the use of cont rast. Sagittal and coronal reformatted images. All CT scans at this location are performed using CT dose reduction for ALARA by means of automated exposure control. COMPARISON: 10/17/2019 FINDINGS: CEREBRAL PARENCHYMA: Underlying chronic microvascular ischemic changes in the white matter are again noted and unchanged. This is most pronounced in the left frontal lobe. The remainder of the brain par enchyma demonstrates normal density. HEMORRHAGE: None. EXTRA-AXIAL SPACES: Normal in size and morphology for the patient's age. VENTRICULAR SYSTEM: Normal in size and morphology for the patient's age. MIDLINE SHIFT OR HERNIATION: None. CEREBELLUM / BRAINSTEM: No significant abnormality. CALVARIUM: No significant abnormality. ORBITS: Normal as visualized. PARANASAL SINUSES / MASTOID AIR CELLS: Normal as visualized. SOFT TISSUES of HEAD: No significant abnormality. ADDITIONAL FINDINGS: None. IMPRESSION: No acute intracranial abnormality. Chronic white matter changes as described. No significant change s steven 10/17/2019. Signer Name: Abbe Herman Jr, MD Signed: 11/18/2019 11:52 AM Workstation Name: [id number]
[2019-11-18] MEDS ORDERED: ACETAMINOPHEN 500 MG TAB PO PRN (12:30)
--- NOTE | 2019-11-18 12:30 | History and Physical Report ---
History of Present Illness Date of examination: 11/18/19 History of present illness: Patient is 68 yo with hypertension, seizure disorder He was brought in for breakthrough seizure. Patient is on Keppra for seizure disorder and states he has been compliant with medications. He denies headache, no vomiting, no chest pain. He was seen and evaluated in ED. he was started on keppra. Had simillar admission last month. Will admit to Telemetry for obsevation. Past History Past Medical History: hypertension, other (seizure disorder) Past Surgical History: No surgical history Social history: single (lives with girlfriend), smoking, full code Family history: no significant family history Medications and Allergies Allergies Allergy/AdvReac Type Severity Reaction Status Date / Time pork derived (porcine) Allergy Rash Verified 11/18/19 08:41 shellfish derived Allergy Hives Verified 11/18/19 08:41 Home Medications Medication Instructions Recorded Confirmed Last Taken Type Metoprolol [Lopressor TAB] 25 mg PO BID #60 tablet 02/17/17 10/17/19 10/15/19 Rx Acetaminophen [Non-Aspirin Extra 500 mg PO Q6HR PRN #30 tablet 04/06/19 10/17/19 Unknown Rx Strength] Magnesium Oxide 500 mg PO BID #20 capsule 04/06/19 10/17/19 10/15/19 Rx Folic Acid 1 mg PO DAILY #30 tablet 10/21/19 Unknown Rx Hydralazine HCl 50 mg PO TID #90 tablet 10/21/19 Unknown Rx Multivitamin Tab [Multiple Vitamin 1 each PO QDAY #30 tablet 10/21/19 Unknown Rx TAB (Theragran)] Thiamine [Vitamin B-1] 100 mg PO QDAY #30 tablet 10/21/19 Unknown Rx levETIRAcetam [Keppra TAB] 1,000 mg PO BID #60 tab 11/19/19 Unknown Rx Exam - Constitutional Vitals: Temp Pulse Resp BP Pulse Ox 97.6 F 76 16 117/67 99 11/18/19 07:45 11/18/19 07:45 11/18/19 07:45 11/18/19 07:45 11/18/19 07:45 Results - Labs CBC & Chem 7: 11/18/19 10:06 11/18/19 10:06 Labs: Abnormal lab results 11/18/19 11/18/19 Range/Units 10:06 10:06 RBC 3.51 L (3.65-5.03) M/mm3 Hgb 10.1 L (11.8-15.2) gm/dl Hct 31.4 L (35.5-45.6) % RDW 17.4 H (13.2-15.2) % Lymph % (Auto) 7.6 L (13.4-35.0) % Lymph # 0.3 L (1.2-5.4) K/mm3 Seg Neutrophils % 84.3 H (40.0-70.0) % Carbon Dioxide 20 L (22-30) mmol/L BUN 23 H (9-20) mg/dL Total Creatine Kinase 53 L (55-170) units/L Total Protein 9.1 H (6.3-8.2) g/dL Assessment and Plan /Acute encephalopathy - due to Post ictal state after seizures Neurochecks /Breakthrough seizures suspect noncompliance and for low Mg cont keppra /Hypertension Monitor BP /hypomagnesemia, replete /Alcohol abuse. I counseled him on quitting Full code status
[2019-11-18 13:28] LABS: Bilirubin,Urine NEG (Negative); Blood,Urine SM (Negative); Color,Urine Straw (Yellow); Urobilinogen,Urine < 2.0 mg/dL (<2.0)
[2019-11-18 13:32] LABS: WBC,Urine < 1.0 /HPF (0.0-6.0)
[2019-11-18 13:36] LABS: Amphetamine Screen,Urine PRESUMPTIVE NEGATIVE; Benzodiazepines Screen,Urine PRESUMPTIVE NEGATIVE; Cannabinoid Screen,Urine PRESUMPTIVE NEGATIVE; Cocaine Screen,Urine PRESUMPTIVE NEGATIVE; Methadone Screen,Urine PRESUMPTIVE NEGATIVE; Opiate Screen,Urine PRESUMPTIVE NEGATIVE
[2019-11-18] MEDS: hydrALAZINE 25 MG TAB PO SCH ×2 (13:37→21:30)
[2019-11-18] MEDS ORDERED: NON-FORMULARY EACH (Hydralazine Hcl [Hydralazine Hcl] 50 MG) PO SCH (14:00)
[2019-11-18] MEDS: MAGNESIUM OXIDE 400 MG TAB PO SCH (21:30)
[2019-11-18] MEDS: levETIRAcetam 500 MG TAB PO SCH (21:30)
[2019-11-18] MEDS: METOPROLOL TARTRATE 25 MG TAB PO SCH (21:30)
[2019-11-18] MEDS ORDERED: NON-FORMULARY EACH (Levetiracetam [Keppra Tab] 1,000 MG) PO SCH (22:00)
[2019-11-18] MEDS ORDERED: MAGNESIUM OXIDE 500 MG PO SCH (22:00)
[2019-11-19] MEDS: hydrALAZINE 25 MG TAB PO SCH ×2 (05:32→14:07)
[2019-11-19] MEDS: MAGNESIUM OXIDE 400 MG TAB PO SCH (09:44)
[2019-11-19] MEDS: levETIRAcetam 500 MG TAB PO SCH (09:44)
[2019-11-19] MEDS: METOPROLOL TARTRATE 25 MG TAB PO SCH (09:44)
[2019-11-19] MEDS ORDERED: MULTIVITAMINS ,THERAPEUTIC TAB PO SCH (10:00)
[2019-11-19] MEDS ORDERED: THIAMINE 100 MG TAB PO SCH (10:00)
[2019-11-19] MEDS ORDERED: FOLIC ACID 1 MG TAB PO SCH (10:00)
[2019-11-19 14:08] VITALS: BP 101/67
--- NOTE | 2019-11-19 15:42 | Discharge Summary ---
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 I counseled him on quitting Full code status Disposition: DC/TX-06 HOME UNDER HOME HLTH Time spent for discharge: 34 minutes Core Measure Documentation - Palliative Care Palliative Care/ Comfort Measures: Not Applicable - Core Measures Any of the following diagnoses?: none Exam - Constitutional Vitals: Temp Pulse Resp BP Pulse Ox 97.6 F 78 18 101/67 99 11/19/19 03:32 11/19/19 14:07 11/19/19 03:32 11/19/19 14:07 11/19/19 03:32 General appearance: Present: no acute distress, well-nourished - EENT Eyes: Present: PERRL ENT: hearing intact, clear oral mucosa - Neck Neck: Present: supple, normal ROM - Respiratory Respiratory effort: normal Respiratory: bilateral: CTA - Cardiovascular Heart Sounds: Present: S1 & S2. Absent: rub, click - Extremities Extremities: pulses symmetrical, No edema Peripheral Pulses: within normal limits - Abdominal General gastrointestinal: Present: soft, non-tender, non-distended, normal bowel sounds - Integumentary Integumentary: Present: clear, warm, dry - Musculoskeletal Musculoskeletal: gait normal, strength equal bilaterally - Psychiatric Psychiatric: appropriate mood/affect, intact judgment & insight - Neurologic Neurologic: CNII-XII intact, moves all extremities Plan Activity: advance as tolerated, no driving until cleared by PCP Weight Bearing Status: Weight Bear as Tolerated Diet: low fat Follow up with: ANABEL STORM MD [Primary Care Provider] - 3-5 Days FOREIGN LYNCH MD [Staff Physician] - 7 Days Prescriptions: levETIRAcetam [Keppra TAB] 1,000 mg PO BID #60 tab
[2019-11-19] MEDS ORDERED: MAGNESIUM SULFATE 2 GM/50 ML BAG IV ONE (16:43)
== END 2019-11-19 18:55 | disposition home health service (06) ==
LOC: ED 07:30 → 4A 13:33
PROVIDERS: ADMIT Internal Medicine; ATTEND Internal Medicine
DX: G40.901 Epilepsy, unspecified, not intractable, with status epilepticus (principal); G93.40 Encephalopathy, unspecified; I10 Essential (primary) hypertension; E83.42 Hypomagnesemia; F10.10 Alcohol abuse, uncomplicated; M10.9 Gout, unspecified; F17.200 Nicotine dependence, unspecified, uncomplicated; Z79.82 Long term (current) use of aspirin
CPT/HCPCS: 36415; 70450; 71045; 80053; 80307; 81001; 82550; 83735; 84484; 85025; 85610; 85730; 96365; 96366; 96375; 99284; 99406; G0378; J1953; J2060; J3475; J7030; 80320; G0480

== ENCOUNTER 2020-05-27 16:42 | Emergency (ER) | payer MEDICARE ==
[2020-05-27] MEDS ORDERED: levETIRAcetam 1000 MG/NS 0.75% 1,000 MG/100 ML BAG IV ONE (17:43)
[2020-05-27] MEDS ORDERED: SODIUM CHLORIDE 0.9% 1000 ML 1,000 ML IV ONE (17:43)
--- NOTE | 2020-05-27 17:52 | Emergency Department Report ---
HPI - General Chief Complaint: Syncope Time Seen by Provider: 05/27/20 17:43 - HPI HPI: This is a 69-year-old male who presents to the emergency department via EMS from home with complaint of a syncopal episode versus a seizure. The patient was sitting outside with his family because "they were spraying in our apartment." He says that it was hot outside in the sun was shining directly in his face and "the next thing I know I was on the ground." Patient does have a seizure history and has not taken his Keppra in about 1 week after running out of the medication. However he is adamant that he had a syncopal episode and not a seizure as he says that he would have a prolonged postictal state if he had had a seizure. EMS arrived about 3 minutes after the initial call and the patient was awake and oriented at that time. He does have a history of some alcohol consumption and says that he last drank anything about 5 AM this morning. He is a tobacco smoker but denies any illicit drug use. At the time of my examination the patient says he feels "great." ED Past Medical Hx - Past Medical History Previous Medical History?: Yes Hx Hypertension: Yes Hx Seizures: Yes Additional medical history: Gout - Social History Smoking Status: Current Some Day Smoker Substance Use Type: Alcohol - Medications Home Medications: Home Medications Medication Instructions Recorded Confirmed Last Taken Type Metoprolol [Lopressor TAB] 25 mg PO BID #60 tablet 02/17/17 10/17/19 10/15/19 Rx Acetaminophen [Non-Aspirin Extra 500 mg PO Q6HR PRN #30 tablet 04/06/19 10/17/19 Unknown Rx Strength] Magnesium Oxide 500 mg PO BID #20 capsule 04/06/19 10/17/19 10/15/19 Rx Folic Acid 1 mg PO DAILY #30 tablet 10/21/19 Unknown Rx Hydralazine HCl 50 mg PO TID #90 tablet 10/21/19 Unknown Rx Multivitamin Tab [Multiple Vitamin 1 each PO QDAY #30 tablet 10/21/19 Unknown Rx TAB (Theragran)] Thiamine [Vitamin B-1] 100 mg PO QDAY #30 tablet 10/21/19 Unknown Rx Magnesium Oxide [Mag-Ox] 400 mg PO BID #60 tablet 11/19/19 Unknown Rx levETIRAcetam [Keppra TAB] 1,000 mg PO BID #60 tab 05/27/20 Unknown Rx ED Review of Systems ROS: Stated complaint: SEIZURE Other details as noted in HPI Comment: All other systems reviewed and negative Constitutional: denies: chills, fever Eyes: denies: eye pain, vision change ENT: denies: ear pain, throat pain Respiratory: denies: cough, shortness of breath Cardiovascular: syncope. denies: chest pain Gastrointestinal: denies: abdominal pain, vomiting Genitourinary: denies: dysuria, discharge Musculoskeletal: denies: back pain, arthralgia Skin: denies: rash, lesions Neurological: denies: headache, weakness Physical Exam - Physical Exam Physical Exam: GENERAL: The patient is well-developed well-nourished. HENT: Normocephalic. Atraumatic. Patient has moist mucous membranes. EYES: Extraocular motions are intact. No nystagmus. NECK: Supple. Trachea is midline. CHEST/LUNGS: Clear to auscultation. There is no respiratory distress noted. HEART/CARDIOVASCULAR: Regular. There is no tachycardia. ABDOMEN: Abdomen is soft, nontender. Patient has normal bowel sounds. SKIN: Skin is warm and dry. NEURO: The patient is awake, alert, and oriented. The patient is cooperative. The patient has no focal neurologic deficits. Normal speech. Cranial nerves II through XII grossly intact. MUSCULOSKELETAL: There is no tenderness or deformity. There is no limitation range of motion. There is no evidence of acute injury. ED Medical Decision Making - Lab Data Result diagrams: 05/27/20 18:10 05/27/20 18:10 Critical care attestation.: If time is entered above; I have spent that time in minutes in the direct care of this critically ill patient, excluding procedure time. ED Disposition Clinical Impression: History of seizure disorder, Syncope, Noncompliance with medication regimen, Fever Condition: Stable Instructions: Syncope (ED), Fever in Adults (ED) Additional Instructions: Please follow-up with a primary care physician in the next few days. Return to the emergency department with any worsening of your symptoms or any acute distress. Take your seizure medications as prescribed. Please try to avoid any alcohol or illicit drug use as this can lower your seizure threshold. Prescriptions: levETIRAcetam [Keppra TAB] 1,000 mg PO BID #60 tab Referrals: MATTHEW WALLER [Other] - 2-3 Days VENANCIO MOSS MD [Staff Physician] - 2-[address] [facility] [Provider Group] - 2-3 Days
[2020-05-27 18:19] LABS: Basophils % (Auto) 0.5 % (0.0-1.8); Eosinophils % (Auto) 0.7 % (0.0-4.3); Hemoglobin 9.2 gm/dl (11.8-15.2); Lymphocytes # (Auto) 0.6 K/mm3 (1.2-5.4); Lymphocytes % (Auto) 9.3 % (13.4-35.0); Mean Corpuscular HGB Conc 32 % (32-34); Mean Corpuscular Volume 96 fl (84-94); Monocytes # (Auto) 0.9 K/mm3 (0.0-0.8); Monocytes % (Auto) 13.5 % (0.0-7.3); Platelet Count 134 K/mm3 (140-440); Red Blood Count 3.02 M/mm3 (3.65-5.03); Red Cell Distribution Width 16.9 % (13.2-15.2)
[2020-05-27] MEDS ORDERED: ACETAMINOPHEN 325 MG TAB PO ONE (18:36)
[2020-05-27 18:47] LABS: Albumin 3.3 g/dL (3.9-5); BUN/Creatinine Ratio 26; Blood Urea Nitrogen 34 mg/dL (9-20); Hemolysis Index 2
[2020-05-27 18:48] LABS: Alanine Aminotransferase < 5 units/L (7-56)
--- NOTE | 2020-05-27 19:30 | XRay Report ---
CHEST 1 VIEW INDICATION: cough COMPARISON: 11/18/2019 FINDINGS: Support devices: None Heart: Normal and unchanged Lungs/Pleura: No acute pulmonary or pleural findings. IMPRESSION: 1. No acute disease and no interval change. Signer Name: José Plata MD Signed: 05/27/2020 7:25 PM Workstation Name: [id number]
--- NOTE | 2020-05-27 20:31 | Cat Scan Report ---
CT head/brain wo con INDICATION / CLINICAL INFORMATION: 69 years Male; Syncope. TECHNIQUE: Routine CT head without contrast. All CT scans at this location are performed using CT dos e reduction for ALARA by means of automated exposure control. COMPARISON: The study is compared to the previous CT of 11/18/2019. FINDINGS: BRAIN / INTRACRANIAL CONTENTS: There is extensive cerebral white matter disease most consistent with microvascular angiopathy. The findings extend to the left frontal subcortical and left gangliocapsula r regions compatible with old infarcts. The findings correlate with the previous CTA. There is mild cerebral atrophy with associated mild prominence of the ventricular system. There is no clear CT evidence of acute intracranial hemorrhage or significant mass effect. ORBITS: No significant abnormality of visualized orbits. SINUSES / MASTOIDS: No significant abnormality in the visualized paranasal sinuses or mastoid air padmini ls. CRANIOCERVICAL JUNCTION: No significant abnormality. ADDITIONAL FINDINGS: There is a persistent 1 cm lucent area within the left frontal calvarium which i s unchanged. IMPRESSION: 1. There is continued extensive microvascular angiopathy as described without CT evidence of acute in tracranial hemorrhage. Signer Name: Nikhil Kim MD Signed: 05/27/2020 8:27 PM Workstation Name: [id number]
[2020-05-27 22:21] LABS: Bacteria,Urine 1+ /HPF (Negative); Bilirubin,Urine NEG (Negative); Blood,Urine NEG (Negative); Color,Urine Yellow (Yellow); Mucus,Urine FEW /HPF
[2020-05-27 22:25] LABS: Amphetamine Screen,Urine PRESUMPTIVE NEGATIVE; Benzodiazepines Screen,Urine PRESUMPTIVE POSITIVE; Cannabinoid Screen,Urine PRESUMPTIVE NEGATIVE; Cocaine Screen,Urine PRESUMPTIVE NEGATIVE; Methadone Screen,Urine PRESUMPTIVE NEGATIVE; Opiate Screen,Urine PRESUMPTIVE NEGATIVE
[2020-05-27 23:16] VITALS: BP 129/81
== END 2020-05-27 23:50 | disposition home or self-care (01) ==
LOC: ED 16:42
DX: G40.909 Epilepsy, unspecified, not intractable, without status epilepticus (principal); R50.9 Fever, unspecified; I10 Essential (primary) hypertension; Z86.69 Personal history of other diseases of the nervous system and sense organs; Z91.14 Patient's other noncompliance with medication regimen; F17.200 Nicotine dependence, unspecified, uncomplicated; Z79.899 Other long term (current) drug therapy; Z91.013 Allergy to seafood; Z88.8 Allergy status to other drugs, medicaments and biological substances
CPT/HCPCS: 36415; 70450; 71045; 80053; 80307; 81001; 84443; 84484; 85025; 93005; 96365; 96366; 99285; J1953; J7030; 80320; G0480

== ENCOUNTER 2021-07-03 07:37 | Emergency (ER) | payer MEDICARE ==
[2021-07-03] MEDS ORDERED: LORazepam 2 MG/ML VIAL IV ONE ×2 (08:51→11:23)
--- NOTE | 2021-07-03 09:49 | Cat Scan Report ---
CT HEAD WITHOUT CONTRAST INDICATION / CLINICAL INFORMATION: seizure. TECHNIQUE: Axial imaging performed from the skull apex through the skull base without the use of cont rast. Sagittal and coronal reformatted images. All CT scans at this location are performed using CT dose reduction for ALARA by means of automated exposure control. COMPARISON: 05/27/2020 FINDINGS: CEREBRAL PARENCHYMA: No acute parenchymal abnormality is appreciated. Mild diffuse volume loss and ch ronic microvascular angiopathy in the white matter is again noted. 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 EXTRA-AXIAL SPACES: Normal in size and morphology for the patient's age. VENTRICULAR SYSTEM: Normal in size and morphology for the patient's age. MIDLINE SHIFT OR HERNIATION: None. CEREBELLUM / BRAINSTEM: No significant abnormality. CALVARIUM: No significant abnormality. ORBITS: Normal as visualized. PARANASAL SINUSES / MASTOID AIR CELLS: Normal as visualized. SOFT TISSUES of HEAD: No significant abnormality. ADDITIONAL FINDINGS: None. IMPRESSION: No acute intracranial abnormality. Chronic findings as described which are unchanged since 05/27/2020. Signer Name: Abbe Herman Jr, MD Signed: 07/03/2021 9:44 AM Workstation Name: [id number]
--- NOTE | 2021-07-03 10:57 | Emergency Department Report ---
ED General Adult HPI - General Chief complaint: Seizure Stated complaint: SEIZURE Time Seen by Provider: 07/03/21 08:51 Source: patient Mode of arrival: Wheelchair Limitations: No Limitations - History of Present Illness Initial comments: Patient initially presents emergency department for medication refill when he has a seizure in the waiting room. Patient does have a history of seizures and has had 1 breakthrough seizure recently. Patient is reported to be compliant with his medications. -: Sudden Severity scale (0 -10): 0 Consistency: constant Improves with: none Worsens with: none Associated Symptoms: denies other symptoms Treatments Prior to Arrival: none - Related Data Previous Rx's Medication Instructions Recorded Last Taken Type Metoprolol [Lopressor TAB] 25 mg PO BID #60 tablet 02/17/17 10/15/19 Rx Acetaminophen [Non-Aspirin Extra 500 mg PO Q6HR PRN #30 tablet 04/06/19 Unknown Rx Strength] Magnesium Oxide 500 mg PO BID #20 capsule 04/06/19 10/15/19 Rx Folic Acid 1 mg PO DAILY #30 tablet 10/21/19 Unknown Rx Hydralazine HCl 50 mg PO TID #90 tablet 10/21/19 Unknown Rx Multivitamin Tab [Multiple Vitamin 1 each PO QDAY #30 tablet 10/21/19 Unknown Rx TAB (Theragran)] Thiamine [Vitamin B-1] 100 mg PO QDAY #30 tablet 10/21/19 Unknown Rx Magnesium Oxide [Mag-Ox] 400 mg PO BID #60 tablet 11/19/19 Unknown Rx Nitrofurantoin [place]/M-Cryst 100 mg PO Q12HR #14 capsule 07/19/20 Unknown Rx [Macrobid CAP] levETIRAcetam [Keppra TAB] 1,000 mg PO BID #60 tab 07/19/20 Unknown Rx Allergies Allergy/AdvReac Type Severity Reaction Status Date / Time pork derived (porcine) Allergy Rash Verified 07/03/21 08:00 shellfish derived Allergy Hives Verified 07/03/21 08:00 ED Review of Systems ROS: Stated complaint: SEIZURE Other details as noted in HPI Comment: Unobtainable due to pts medical conditions (Actively seizing) ED Past Medical Hx - Past Medical History Hx Hypertension: Yes Hx Seizures: Yes Additional medical history: Gout - Social History Smoking Status: Current Every Day Smoker Substance Use Type: Alcohol - Medications Home Medications: Home Medications Medication Instructions Recorded Confirmed Last Taken Type Metoprolol [Lopressor TAB] 25 mg PO BID #60 tablet 02/17/17 10/17/19 10/15/19 Rx Acetaminophen [Non-Aspirin Extra 500 mg PO Q6HR PRN #30 tablet 04/06/19 10/17/19 Unknown Rx Strength] Magnesium Oxide 500 mg PO BID #20 capsule 04/06/19 10/17/19 10/15/19 Rx Folic Acid 1 mg PO DAILY #30 tablet 10/21/19 Unknown Rx Hydralazine HCl 50 mg PO TID #90 tablet 10/21/19 Unknown Rx Multivitamin Tab [Multiple Vitamin 1 each PO QDAY #30 tablet 10/21/19 Unknown Rx TAB (Theragran)] Thiamine [Vitamin B-1] 100 mg PO QDAY #30 tablet 10/21/19 Unknown Rx Magnesium Oxide [Mag-Ox] 400 mg PO BID #60 tablet 11/19/19 Unknown Rx Nitrofurantoin [place]/M-Cryst 100 mg PO Q12HR #14 capsule 07/19/20 Unknown Rx [Macrobid CAP] levETIRAcetam [Keppra TAB] 1,000 mg PO BID #60 tab 07/19/20 Unknown Rx ED Physical Exam - General Limitations: No Limitations - Head Head exam: Present: atraumatic, normocephalic - Eye Eye exam: Present: normal appearance, PERRL, EOMI - ENT ENT exam: Present: mucous membranes dry - Neck Neck exam: Present: normal inspection - Respiratory Respiratory exam: Present: normal lung sounds bilaterally. Absent: respiratory distress - Cardiovascular Cardiovascular Exam: Present: regular rate, normal rhythm - GI/Abdominal GI/Abdominal exam: Present: soft, distended, normal bowel sounds. Absent: tenderness - Extremities Exam Extremities exam: Present: normal inspection - Neurological Exam Neurological exam: Present: other (Actively seizing thus not able to complete for neurological exam) - Psychiatric Psychiatric exam: Present: other (Actively seizing not able to complete for psychiatric exam) ED Medical Decision Making - Lab Data Result diagrams: 07/03/21 09:56 07/03/21 09:56 Lab Results 07/03/21 07/03/21 Range/Units 09:56 09:56 WBC 5.5 (4.5-11.0) K/mm3 RBC 3.53 L (3.65-5.03) M/mm3 Hgb 10.8 L (11.8-15.2) gm/dl Hct 33.5 L (35.5-45.6) % MCV 95 H (84-94) fl MCH 31 (28-32) pg MCHC 32 (32-34) % RDW 15.1 (13.2-15.2) % Plt Count 203 (140-440) K/mm3 Lymph % (Auto) 18.4 (13.4-35.0) % [place] % (Auto) 10.3 H (0.0-7.3) % Eos % (Auto) 0.5 (0.0-4.3) % Baso % (Auto) 1.3 (0.0-1.8) % Lymph # (Auto) 1.0 L (1.2-5.4) K/mm3 [place] # (Auto) 0.6 (0.0-0.8) K/mm3 Eos # (Auto) 0.0 (0.0-0.4) K/mm3 Baso # (Auto) 0.1 (0.0-0.1) K/mm3 Seg Neutrophils % 69.5 (40.0-70.0) % Seg Neutrophils # 3.8 (1.8-7.7) K/mm3 Sodium 145 (137-145) mmol/L Potassium 3.7 (3.6-5.0) mmol/L Chloride 107.9 H (98-107) mmol/L Carbon Dioxide 25 (22-30) mmol/L Anion Gap 16 mmol/L BUN 16 (9-20) mg/dL Creatinine 1.0 (0.8-1.3) mg/dL Estimated GFR > 60 ml/min BUN/Creatinine Ratio 16 % Glucose 87 (75-100) mg/dL Calcium 9.6 (8.4-10.2) mg/dL Total Bilirubin 0.40 (0.1-1.2) mg/dL AST 28 (5-40) units/L ALT 8 (7-56) units/L Alkaline Phosphatase 77 (35-129) units/L Total Protein 7.3 (6.3-8.2) g/dL Albumin 3.7 L (3.9-5) g/dL Albumin/Globulin Ratio 1.0 % - Radiology Data Radiology results: report reviewed - Medical Decision Making Patient given Ativan and Keppra for seizures with good results Critical Care Time: Yes Critical care time in (mins) excluding proc time.: 35 Critical care attestation.: If time is entered above; I have spent that time in minutes in the direct care of this critically ill patient, excluding procedure time. ED Disposition Clinical Impression: Seizure Disposition: HOME / SELF CARE / HOMELESS Is pt being admited?: No Does the pt Need Aspirin: No Condition: Stable Additional Instructions: return if worse Referrals: PRIMARY CAREMD [Primary Care Provider] - 3-5 Days VENANCIO MOSS MD [Staff Physician] - 3-5 Days Time of Disposition: 12:59
[2021-07-03 11:05] LABS: Basophils # (Auto) 0.1 K/mm3 (0.0-0.1); Basophils % (Auto) 1.3 % (0.0-1.8); Eosinophils % (Auto) 0.5 % (0.0-4.3); Hematocrit 33.5 % (35.5-45.6); Hemoglobin 10.8 gm/dl (11.8-15.2); Lymphocytes % (Auto) 18.4 % (13.4-35.0); Mean Corpuscular HGB Conc 32 % (32-34); Mean Corpuscular Volume 95 fl (84-94); Monocytes # (Auto) 0.6 K/mm3 (0.0-0.8); Monocytes % (Auto) 10.3 % (0.0-7.3); Platelet Count 203 K/mm3 (140-440); Red Blood Count 3.53 M/mm3 (3.65-5.03); Red Cell Distribution Width 15.1 % (13.2-15.2)
[2021-07-03 11:16] LABS: Alanine Aminotransferase 8 units/L (7-56); Albumin 3.7 g/dL (3.9-5); BUN/Creatinine Ratio 16; Blood Urea Nitrogen 16 mg/dL (9-20); Calcium 9.6 mg/dL (8.4-10.2); Hemolysis Index 10
[2021-07-03] MEDS ORDERED: LORazepam 2 MG/ML VIAL ONE (11:23)
[2021-07-03] MEDS ORDERED: levETIRAcetam 1,000 MG in DEXTROSE 5% IN WATER 100 ML IV ONE (11:24)
[2021-07-03] MEDS ORDERED: levETIRAcetam 1000 MG/NS 0.75% 1,000 MG/100 ML BAG IV ONE (12:00)
== END 2021-07-03 19:20 | disposition home or self-care (01) ==
LOC: ED 07:37
DX: R56.9 Unspecified convulsions (principal); M10.9 Gout, unspecified; F17.200 Nicotine dependence, unspecified, uncomplicated; Z91.013 Allergy to seafood; Z91.018 Allergy to other foods
CPT/HCPCS: 36415; 70450; 80053; 85025; 96365; 96375; 99284; J1953; J2060

== ENCOUNTER 2021-09-17 17:38 | Observation (INO) | payer MEDICARE ==
[2021-09-17] MEDS ORDERED: levETIRAcetam 1000 MG/NS 0.75% 1,000 MG/100 ML BAG IV ONE (17:49)
[2021-09-17] MEDS ORDERED: LORazepam 2 MG/ML VIAL IV ONE ×3 (17:50→20:56)
--- NOTE | 2021-09-17 17:52 | Emergency Department Report ---
HPI - General Time Seen by Provider: 09/17/21 17:48 - HPI HPI: This is a 70-year-old -[place] male presents to the emergency department via EMS from home with report of alcohol abuse and seizure-like activity. The patient does have a history of a seizure disorder for which he is on Keppra and is usually known to be compliant, although he may not have had his medication today. The patient had some witnessed seizure-like activity at home, again with EMS in route, and then had another seizure upon arrival to the emergency department. The patient is currently unresponsive and postictal. He has been to our emergency department many times over the past few years for seizures. Patient has not received anything for symptoms prior to presentation today. ED Past Medical Hx - Past Medical History Hx Hypertension: Yes Hx Seizures: Yes Additional medical history: Gout - Social History Smoking Status: Current Every Day Smoker Substance Use Type: Alcohol - Medications Home Medications: Home Medications Medication Instructions Recorded Confirmed Last Taken Type Metoprolol [Lopressor TAB] 25 mg PO BID #60 tablet 02/17/17 10/17/19 10/15/19 Rx Acetaminophen [Non-Aspirin Extra 500 mg PO Q6HR PRN #30 tablet 04/06/19 10/17/19 Unknown Rx Strength] Magnesium Oxide 500 mg PO BID #20 capsule 04/06/19 10/17/19 10/15/19 Rx Folic Acid 1 mg PO DAILY #30 tablet 10/21/19 Unknown Rx Hydralazine HCl 50 mg PO TID #90 tablet 10/21/19 Unknown Rx Multivitamin Tab [Multiple Vitamin 1 each PO QDAY #30 tablet 10/21/19 Unknown Rx TAB (Theragran)] Thiamine [Vitamin B-1] 100 mg PO QDAY #30 tablet 10/21/19 Unknown Rx Magnesium Oxide [Mag-Ox] 400 mg PO BID #60 tablet 11/19/19 Unknown Rx Nitrofurantoin [place]/M-Cryst 100 mg PO Q12HR #14 capsule 07/19/20 Unknown Rx [Macrobid CAP] levETIRAcetam [Keppra TAB] 1,000 mg PO BID #60 tab 07/19/20 Unknown Rx ED Review of Systems ROS: Stated complaint: ETOH Other details as noted in HPI Comment: Unobtainable due to pts medical conditions Physical Exam - Physical Exam Physical Exam: GENERAL: The patient is ill-appearing. HENT: Normocephalic. Atraumatic. Patient has moist mucous membranes. EYES: Pupils equal reactive to light bilaterally. NECK: Supple. Trachea is midline. CHEST/LUNGS: Clear to auscultation. There is no respiratory distress noted. HEART/CARDIOVASCULAR: Regular. There is no tachycardia. There is no murmur. ABDOMEN: Abdomen is soft, nontender. Patient has normal bowel sounds. There is no abdominal distention. SKIN: Skin is warm and dry. NEURO: The patient is postictal and nonverbal. He does withdraw from painful stimuli. Not following commands. MUSCULOSKELETAL: There is no tenderness or obvious deformity. ED Medical Decision Making - Lab Data Result diagrams: 09/17/21 18:13 09/17/21 18:13 Lab Results 09/17/21 09/17/21 09/17/21 Range/Units 18:13 18:13 18:13 WBC 11.9 H (4.5-11.0) K/mm3 RBC 3.98 (3.65-5.03) M/mm3 Hgb 11.9 (11.8-15.2) gm/dl Hct 37.6 (35.5-45.6) % MCV 95 H (84-94) fl MCH 30 (28-32) pg MCHC 32 (32-34) % RDW 14.6 (13.2-15.2) % Plt Count 164 (140-440) K/mm3 Lymph % (Auto) 11.6 L (13.4-35.0) % [place] % (Auto) 6.4 (0.0-7.3) % Eos % (Auto) 0.3 (0.0-4.3) % Baso % (Auto) 0.6 (0.0-1.8) % Lymph # (Auto) 1.4 (1.2-5.4) K/mm3 [place] # (Auto) 0.8 (0.0-0.8) K/mm3 Eos # (Auto) 0.0 (0.0-0.4) K/mm3 Baso # (Auto) 0.1 (0.0-0.1) K/mm3 Seg Neutrophils % 81.1 H (40.0-70.0) % Seg Neutrophils # 9.7 H (1.8-7.7) K/mm3 Sodium 142 (137-145) mmol/L Potassium 4.2 (3.6-5.0) mmol/L Chloride 101.0 (98-107) mmol/L Carbon Dioxide 14 L (22-30) mmol/L Anion Gap 31 mmol/L BUN 45 H (9-20) mg/dL Creatinine 1.8 H (0.8-1.3) mg/dL Estimated GFR 45 ml/min BUN/Creatinine Ratio 25 % Glucose 133 H (75-100) mg/dL Calcium 9.7 (8.4-10.2) mg/dL Magnesium 2.10 (1.7-2.3) mg/dL Total Bilirubin 0.50 (0.1-1.2) mg/dL AST 50 H (5-40) units/L ALT 17 (7-56) units/L Alkaline Phosphatase 92 (35-129) units/L Total Creatine Kinase 124 (55-170) units/L Total Protein 8.4 H (6.3-8.2) g/dL Albumin 4.0 (3.9-5) g/dL Albumin/Globulin Ratio 0.9 % TSH (0.270-4.200) mlU/mL Plasma/Serum Alcohol < 0.01 (0-0.07) % 09/17/21 Range/Units 18:13 WBC (4.5-11.0) K/mm3 RBC (3.65-5.03) M/mm3 Hgb (11.8-15.2) gm/dl Hct (35.5-45.6) % MCV (84-94) fl MCH (28-32) pg MCHC (32-34) % RDW (13.2-15.2) % Plt Count (140-440) K/mm3 Lymph % (Auto) (13.4-35.0) % [place] % (Auto) (0.0-7.3) % Eos % (Auto) (0.0-4.3) % Baso % (Auto) (0.0-1.8) % Lymph # (Auto) (1.2-5.4) K/mm3 [place] # (Auto) (0.0-0.8) K/mm3 Eos # (Auto) (0.0-0.4) K/mm3 Baso # (Auto) (0.0-0.1) K/mm3 Seg Neutrophils % (40.0-70.0) % Seg Neutrophils # (1.8-7.7) K/mm3 Sodium (137-145) mmol/L Potassium (3.6-5.0) mmol/L Chloride (98-107) mmol/L Carbon Dioxide (22-30) mmol/L Anion Gap mmol/L BUN (9-20) mg/dL Creatinine (0.8-1.3) mg/dL Estimated GFR ml/min BUN/Creatinine Ratio % Glucose (75-100) mg/dL Calcium (8.4-10.2) mg/dL Magnesium (1.7-2.3) mg/dL Total Bilirubin (0.1-1.2) mg/dL AST (5-40) units/L ALT (7-56) units/L Alkaline Phosphatase (35-129) units/L Total Creatine Kinase (55-170) units/L Total Protein (6.3-8.2) g/dL Albumin (3.9-5) g/dL Albumin/Globulin Ratio % TSH 0.495 (0.270-4.200) mlU/mL Plasma/Serum Alcohol (0-0.07) % - Radiology Data Radiology results: report reviewed, image reviewed interpreted by me: Chest x-ray does not show any acute process. There are no pleural effusions, obvious pneumonia and there is no pneumothorax. No widened mediastinum. CT head/brain wo con INDICATION: Multiple seizures, AMS. TECHNIQUE: Routine CT head. All CT scans at this location are performed using CT dose reduction for [place] by means of automated exposure control. COMPARISON: 07/03/2021. FINDINGS: Image quality is significantly degraded by motion. Intracranial: No definite infarction. No hydrocephalus. No hemorrhage is identified. Extra axial spaces are degraded by artifact and thus the sensitivity for extraocular hemorrhage is decreased. Sinuses: Paranasal sinuses and mastoid air cells are essentially clear. Orbits: Globes are intact. Calvarium: Left frontal meningioma. No acute fracture identified. IMPRESSION: 1. Image quality is significantly degraded by artifact. No acute abnormality identified. - Medical Decision Making This patient presented to the emergency department after he had a witnessed seizure at home, a witnessed seizure with EMS, and then another witnessed seizure upon arrival to our emergency department. At the time of my initial examination the patient is postictal and mostly unresponsive. He was brought back to room #3. Patient was given a loading dose of Keppra and a small amount of Ativan. The patient remained postictal but has episodes of agitation which he pulls off all of his telemetry wiring and has attempted to pull out his IV. The patient was given 2 further doses of Ativan so we could proceed with his work-up including CT of the head, x-ray and blood work. There was some motion artifact with CT of the head but no obvious hemorrhage or large vessel occlusion was seen. Chest x-ray does not show any pneumonia, pneumothorax, pleural effusions, widened mediastinum, or any other acute process. Patient's labs shows a bicarb level of 14, and some mild renal deficiency with a GFR of 45. The blood alcohol level is negative only the patient does have a history of alcohol abuse, dependence, and withdrawal. He also has a seizure disorder. Therefore it is unknown whether the patient had a few seizures from his seizure disorder or an alcohol withdrawal seizure. Either way, the patient has had a prolonged postictal period or encephalopathy, and will be admitted to the hospital for further evaluation and treatment. The patient was accepted for admission by the hospitalist, Dr. Riggs. Critical Care Time: Yes Critical care time in (mins) excluding proc time.: 31 Critical care attestation.: If time is entered above; I have spent that time in minutes in the direct care of this critically ill patient, excluding procedure time. Critical care time spent on this patient in doing his initial evaluation, multiple reevaluations, ordering and interpretation of labs and imaging, multiple doses of Ativan given for treatment of his recurrent seizures and for sedation to complete his ED work-up, and discussion with the hospitalist service. Critical Care Time: 31 minutes ED Disposition Clinical Impression: Encephalopathy, Breakthrough seizure, [place]VIL[place] (acute kidney injury) Hypertension Qualifiers: Hypertension type: unspecified Qualified Code(s): I10 - Essential (primary) hypertension Disposition: 09 ADMITTED INPATIENT Is pt being admited?: Yes Condition: Serious Instructions: Hypertension (ED) Referrals: PRIMARY CARE, [Primary Care Provider] - 3-5 Days Time of Disposition: 22:49
[2021-09-17] MEDS: SODIUM CHLORIDE 0.9% 1000 ML 1,000 ML IV ONE ×2 (18:04→20:36)
[2021-09-17 19:09] LABS: Basophils # (Auto) 0.1 K/mm3 (0.0-0.1); Basophils % (Auto) 0.6 % (0.0-1.8); Eosinophils % (Auto) 0.3 % (0.0-4.3); Hematocrit 37.6 % (35.5-45.6); Hemoglobin 11.9 gm/dl (11.8-15.2); Lymphocytes # (Auto) 1.4 K/mm3 (1.2-5.4); Lymphocytes % (Auto) 11.6 % (13.4-35.0); Mean Corpuscular HGB Conc 32 % (32-34); Mean Corpuscular Volume 95 fl (84-94); Monocytes # (Auto) 0.8 K/mm3 (0.0-0.8); Monocytes % (Auto) 6.4 % (0.0-7.3); Platelet Count 164 K/mm3 (140-440); Red Blood Count 3.98 M/mm3 (3.65-5.03); Red Cell Distribution Width 14.6 % (13.2-15.2)
[2021-09-17 19:29] LABS: Calcium 9.7 mg/dL (8.4-10.2)
--- NOTE | 2021-09-17 20:05 | XRay Report ---
XR chest 1V ap INDICATION / CLINICAL INFORMATION: SOB COMPARISON: 05/27/2020 FINDINGS: SUPPORT DEVICES: None. HEART / MEDIASTINUM: No significant abnormality. LUNGS / PLEURA: Lungs are clear. Costophrenic sulci are sharp. No pneumothorax. ADDITIONAL FINDINGS: No significant additional findings. IMPRESSION: 1. No acute findings. Signer Name: Terry Das MD Signed: 09/17/2021 8:01 PM Workstation Name: [id number]
[2021-09-17] MEDS ORDERED: diphenhydrAMINE 50 MG/ML VIAL ONE (21:03)
--- NOTE | 2021-09-17 22:27 | Cat Scan Report ---
CT head/brain wo con INDICATION: Multiple seizures, AMS. TECHNIQUE: Routine CT head. All CT scans at this location are performed using CT dose reduction for A YO by means of automated exposure control. COMPARISON: 07/03/2021. FINDINGS: Image quality is significantly degraded by motion. Intracranial: No definite infarction. No hydrocephalus. No hemorrhage is identified. Extra axial spac es are degraded by artifact and thus the sensitivity for extraocular hemorrhage is decreased. Sinuses: Paranasal sinuses and mastoid air cells are essentially clear. Orbits: Globes are intact. Calvarium: Left frontal meningioma. No acute fracture identified. IMPRESSION: 1. Image quality is significantly degraded by artifact. No acute abnormality identified. Signer Name: Terry Das MD Signed: 09/17/2021 10:23 PM Workstation Name: [id number]
[2021-09-18] MEDS ORDERED: oxyCODONE /ACETAMINOPHEN 5-325MG TAB PO PRN (00:29)
[2021-09-18] MEDS ORDERED: ONDANSETRON 4 MG/2 ML INJ IV PRN (00:29)
[2021-09-18] MEDS ORDERED: HYDROmorphone 1 MG/1 ML INJ IV PRN (00:29)
[2021-09-18] MEDS ORDERED: ALBUTEROL 2.5 MG/3 ML NEBU IH PRN (00:29)
[2021-09-18] MEDS ORDERED: ACETAMINOPHEN 325 MG TAB PO PRN (00:29)
--- NOTE | 2021-09-18 00:38 | History and Physical Report ---
History of Present Illness Date of examination: 09/18/21 Date of admission: 09/18/21 Chief complaint: Seizure-like activity History of present illness: 70-year-old -[place] male with history of alcohol abuse was brought to the emergency room because of seizure-like activity. The patient does have a history of a seizure disorder for which he is on Keppra and is usually known to be compliant, although he may not have had his medication today. The patient had some witnessed seizure-like activity at home, again with EMS in route, and then had another seizure upon arrival to the emergency department. The patient is currently unresponsive and postictal. He has been to our emergency department many times over the past few years for seizures. Patient has not received anything for symptoms prior to presentation today. In the emergency room initial CT scan shows no acute intracranial abnormality. We will going to admit the patient will consult neurology for evaluation we also ordered for EEG Med rec is done Past History Past Medical History: seizures (Alcohol abuse), other Medications and Allergies Allergies Allergy/AdvReac Type Severity Reaction Status Date / Time pork derived (porcine) Allergy Rash Verified 07/03/21 08:00 shellfish derived Allergy Hives Verified 07/03/21 08:00 Home Medications Medication Instructions Recorded Confirmed Last Taken Type Metoprolol [Lopressor TAB] 25 mg PO BID #60 tablet 02/17/17 10/17/19 10/15/19 Rx Acetaminophen [Non-Aspirin Extra 500 mg PO Q6HR PRN #30 tablet 04/06/19 10/17/19 Unknown Rx Strength] Magnesium Oxide 500 mg PO BID #20 capsule 04/06/19 10/17/19 10/15/19 Rx Folic Acid 1 mg PO DAILY #30 tablet 10/21/19 Unknown Rx Hydralazine HCl 50 mg PO TID #90 tablet 10/21/19 Unknown Rx Multivitamin Tab [Multiple Vitamin 1 each PO QDAY #30 tablet 10/21/19 Unknown Rx TAB (Theragran)] Thiamine [Vitamin B-1] 100 mg PO QDAY #30 tablet 10/21/19 Unknown Rx Magnesium Oxide [Mag-Ox] 400 mg PO BID #60 tablet 11/19/19 Unknown Rx Nitrofurantoin [place]/M-Cryst 100 mg PO Q12HR #14 capsule 07/19/20 Unknown Rx [Macrobid CAP] levETIRAcetam [Keppra TAB] 1,000 mg PO BID #60 tab 07/19/20 Unknown Rx Active Meds: Active Medications Acetaminophen (Acetaminophen 325 Mg Tab) 650 mg PO Q4H PRN PRN Reason: Pain MILD(1-3)/Fever >100.5/MARRERO Albuterol (Albuterol 2.5 Mg/3 Ml Nebu) 2.5 mg IH Q4HRT PRN PRN Reason: Shortness Of Breath Albuterol/Ipratropium (Ipratropium/Albuterol Sulfate 3 Ml Ampul.Neb) 1 ampul IH Q6HRT TIERRA Sodium Chloride (Nacl 0.9% 1000 Ml) 1,000 mls @ 125 mls/hr IV ONCE ONE Stop: 09/18/21 01:48 Last Admin: 09/17/21 20:36 Dose: 125 mls/hr Documented by: Ondansetron HCl (Ondansetron 4 Mg/2 Ml Inj) 4 mg IV Q8H PRN PRN Reason: Nausea And Vomiting Sodium Chloride (Sodium Chloride 0.9% 10 Ml Flush Syringe) 10 ml IV BID TIERRA Sodium Chloride (Sodium Chloride 0.9% 10 Ml Flush Syringe) 10 ml IV PRN PRN PRN Reason: LINE FLUSH Review of Systems All systems: negative Neurological: seizures, change in mentation Exam - Constitutional Vitals: Temp Pulse Resp BP Pulse Ox 98.6 F 88 17 170/90 97 09/17/21 22:27 09/18/21 00:05 09/18/21 00:05 09/18/21 00:05 09/18/21 00:05 General appearance: Present: no acute distress, well-nourished - EENT Eyes: Present: PERRL ENT: hearing intact, clear oral mucosa - Neck Neck: Present: supple, normal ROM - Respiratory Respiratory effort: normal Respiratory: bilateral: CTA - Cardiovascular Heart Sounds: Present: S1 & S2. Absent: rub, click - Extremities Extremities: pulses symmetrical, No edema Peripheral Pulses: within normal limits - Abdominal General gastrointestinal: Present: soft, non-tender, non-distended, normal bowel sounds Male genitourinary: Present: normal - Integumentary Integumentary: Present: clear, warm, dry - Musculoskeletal Musculoskeletal: gait normal, strength equal bilaterally - Psychiatric Psychiatric: other (Lethargic) - Neurologic Neurologic: CNII-XII intact, moves all extremities, other (Patient is lethargic) Results - Labs CBC & Chem 7: 09/17/21 18:13 09/17/21 18:13 Labs: Laboratory Last Values WBC 11.9 K/mm3 (4.5-11.0) H 09/17/21 18:13 RBC 3.98 M/mm3 (3.65-5.03) 09/17/21 18:13 Hgb 11.9 gm/dl (11.8-15.2) 09/17/21 18:13 Hct 37.6 % (35.5-45.6) 09/17/21 18:13 MCV 95 fl (84-94) H 09/17/21 18:13 MCH 30 pg (28-32) 09/17/21 18:13 MCHC 32 % (32-34) 09/17/21 18:13 RDW 14.6 % (13.2-15.2) 09/17/21 18:13 Plt Count 164 K/mm3 (140-440) 09/17/21 18:13 Lymph % (Auto) 11.6 % (13.4-35.0) L 09/17/21 18:13 [place] % (Auto) 6.4 % (0.0-7.3) 09/17/21 18:13 Eos % (Auto) 0.3 % (0.0-4.3) 09/17/21 18:13 Baso % (Auto) 0.6 % (0.0-1.8) 09/17/21 18:13 Lymph # (Auto) 1.4 K/mm3 (1.2-5.4) 09/17/21 18:13 [place] # (Auto) 0.8 K/mm3 (0.0-0.8) 09/17/21 18:13 Eos # (Auto) 0.0 K/mm3 (0.0-0.4) 09/17/21 18:13 Baso # (Auto) 0.1 K/mm3 (0.0-0.1) 09/17/21 18:13 Seg Neutrophils % 81.1 % (40.0-70.0) H 09/17/21 18:13 Seg Neutrophils # 9.7 K/mm3 (1.8-7.7) H 09/17/21 18:13 Sodium 142 mmol/L (137-145) 09/17/21 18:13 Potassium 4.2 mmol/L (3.6-5.0) 09/17/21 18:13 Chloride 101.0 mmol/L (98-107) 09/17/21 18:13 Carbon Dioxide 14 mmol/L (22-30) L 09/17/21 18:13 Anion Gap 31 mmol/L 09/17/21 18:13 BUN 45 mg/dL (9-20) H 09/17/21 18:13 Creatinine 1.8 mg/dL (0.8-1.3) H 09/17/21 18:13 Estimated GFR 45 ml/min 09/17/21 18:13 BUN/Creatinine Ratio 25 % 09/17/21 18:13 Glucose 133 mg/dL (75-100) H 09/17/21 18:13 Calcium 9.7 mg/dL (8.4-10.2) 09/17/21 18:13 Magnesium 2.10 mg/dL (1.7-2.3) 09/17/21 18:13 Total Bilirubin 0.50 mg/dL (0.1-1.2) 09/17/21 18:13 AST 50 units/L (5-40) H 09/17/21 18:13 ALT 17 units/L (7-56) 09/17/21 18:13 Alkaline Phosphatase 92 units/L (35-129) 09/17/21 18:13 Total Creatine Kinase 124 units/L (55-170) 09/17/21 18:13 Total Protein 8.4 g/dL (6.3-8.2) H 09/17/21 18:13 Albumin 4.0 g/dL (3.9-5) 09/17/21 18:13 Albumin/Globulin Ratio 0.9 % 09/17/21 18:13 TSH 0.495 mlU/mL (0.270-4.200) 09/17/21 18:13 Plasma/Serum Alcohol < 0.01 % (0-0.07) 09/17/21 18:13 - Imaging and Cardiology Chest x-ray: report reviewed CT Scan - head: report reviewed Assessment and Plan VTE prophylaxis?: Chemical Plan of care discussed with patient/family: Yes - Patient Problems (1) Breakthrough seizure Current Visit: Yes Status: Acute Plan to address problem: Admit the patient to the medical floor. NPO. D5 half-normal saline at the rate of 100 cc/h. Keppra 500 mg IV every 12 hours. EEG. Neurology consult (2) Acute metabolic encephalopathy Current Visit: No Status: Acute Plan to address problem: Most likely secondary to seizure and acute renal failure. NPO. D5 half-normal saline at the rate of 100 cc/h. We will monitor the patient closely. Will consult neurology for evaluation (3) [place] (acute kidney injury) Current Visit: Yes Status: Acute Plan to address problem: Avoid nephrotoxic drug. D5 half-normal saline at the rate of 100 cc/h. Renally dose medication. Recheck BMP in the morning (4) Alcohol abuse Current Visit: Yes Status: Acute Plan to address problem: Patient counseled regarding quit drinking. Folic acid 1 mg p.o. daily. Multivitamin 1 tablet p.o. daily. We will monitor the patient closely (5) Hypertension Current Visit: Yes Status: Acute Plan to address problem: Stable. We will continue the home medication. (6) DVT prophylaxis Current Visit: Yes Status: Acute Plan to address problem: SCD for DVT prophylaxis because of seizure. Pepcid 20 mg IV twice for GI prophylaxis. Patient is a full code
[2021-09-18] MEDS ORDERED: NON-FORMULARY EACH (Hydralazine Hcl [Hydralazine Hcl] 50 MG Tablet) PO SCH (08:00)
[2021-09-18] MEDS: IPRATROPIUM/ALBUTEROL SULFATE 3 ML AMPUL.NEB IH SCH (09:25)
[2021-09-18] MEDS ORDERED: FAMOTIDINE 20 MG/2 ML INJ IV SCH ×2 (10:00)
[2021-09-18] MEDS ORDERED: levETIRAcetam 500 MG in DEXTROSE 5% IN WATER 100 ML IV SCH (10:00)
[2021-09-18] MEDS ORDERED: NITROFURANTOIN MONOHYD/M-CRYST 100 MG CAP PO SCH (10:00)
[2021-09-18] MEDS ORDERED: NON-FORMULARY EACH (Levetiracetam [Keppra Tab] 1,000 MG Tablet) PO SCH (10:00)
[2021-09-18] MEDS: THIAMINE 100 MG TAB PO SCH (12:29)
[2021-09-18] MEDS: MULTIVITAMINS ,THERAPEUTIC TAB PO SCH (12:29)
[2021-09-18] MEDS: FOLIC ACID 1 MG TAB PO SCH (12:29)
[2021-09-18] MEDS: MAGNESIUM OXIDE 400 MG TAB PO SCH ×2 (12:29→21:25)
[2021-09-18] MEDS: hydrALAZINE 25 MG TAB PO SCH ×3 (12:30→21:31)
[2021-09-18] MEDS: METOPROLOL TARTRATE 25 MG TAB PO SCH ×2 (12:31→21:32)
--- NOTE | 2021-09-18 15:24 | Consultation ---
History of Present Illness Consult date: 09/18/21 Reason for Consult: Seizure History of present illness: 70-year-old -Prydeinig male with history of alcohol abuse was brought to the emergency room because of seizure-like activity. The patient does have a history of a seizure disorder for which he is on Keppra and is usually known to be compliant, although he may not have had his medication today. The patient had some witnessed seizure-like activity at home, again with EMS in route, and then had another seizure upon arrival to the emergency department. The patient is currently unresponsive and postictal. He has been to our emergency department many times over the past few years for seizures. Patient has not received anything for symptoms prior to presentation today. In the emergency room initial CT scan shows no acute intracranial abnormality. The patient reports improvement , no seizure noted in hospital. Past History Past Medical History: seizures (Alcohol abuse), other Medications and Allergies Allergies Allergy/AdvReac Type Severity Reaction Status Date / Time pork derived (porcine) Allergy Rash Verified 07/03/21 08:00 shellfish derived Allergy Hives Verified 07/03/21 08:00 Home Medications Medication Instructions Recorded Confirmed Last Taken Type Metoprolol [Lopressor TAB] 25 mg PO BID #60 tablet 02/17/17 10/17/19 10/15/19 Rx Acetaminophen [Non-Aspirin Extra 500 mg PO Q6HR PRN #30 tablet 04/06/19 10/17/19 Unknown Rx Strength] Magnesium Oxide 500 mg PO BID #20 capsule 04/06/19 10/17/19 10/15/19 Rx Folic Acid 1 mg PO DAILY #30 tablet 10/21/19 Unknown Rx Hydralazine HCl 50 mg PO TID #90 tablet 10/21/19 Unknown Rx Multivitamin Tab [Multiple Vitamin 1 each PO QDAY #30 tablet 10/21/19 Unknown Rx TAB (Theragran)] Thiamine [Vitamin B-1] 100 mg PO QDAY #30 tablet 10/21/19 Unknown Rx Magnesium Oxide [Mag-Ox] 400 mg PO BID #60 tablet 11/19/19 Unknown Rx Nitrofurantoin Bowman/M-Cryst 100 mg PO Q12HR #14 capsule 07/19/20 Unknown Rx [Macrobid CAP] levETIRAcetam [Keppra TAB] 1,000 mg PO BID #60 tab 07/19/20 Unknown Rx Active Meds: Active Medications Acetaminophen (Acetaminophen 325 Mg Tab) 650 mg PO Q4H PRN PRN Reason: Pain MILD(1-3)/Fever >100.5/MARRERO Albuterol (Albuterol 2.5 Mg/3 Ml Nebu) 2.5 mg IH Q4HRT PRN PRN Reason: Shortness Of Breath Folic Acid (Folic Acid 1 Mg Tab) 1 mg PO DAILY [facility] Last Admin: 09/18/21 12:29 Dose: 1 mg Documented by: Hydralazine HCl (Hydralazine 25 Mg Tab) 50 mg PO TID [facility] Last Admin: 09/18/21 12:30 Dose: 50 mg Documented by: Dextrose/Sodium Chloride (D5/0.45ns) 1,000 mls @ 100 mls/hr IV DIRECT [facility] Levetiracetam 500 mg/ Dextrose 105 mls @ 400 mls/hr IV Q12HR [facility] Magnesium Oxide (Magnesium Oxide 400 Mg Tab) 400 mg PO BID [facility] Last Admin: 09/18/21 12:29 Dose: 400 mg Documented by: Metoprolol Tartrate (Metoprolol Tartrate 25 Mg Tab) 25 mg PO BID [facility] Last Admin: 09/18/21 12:31 Dose: 25 mg Documented by: Multivitamins (Multivitamins ,Therapeutic Tab) 1 each PO QDAY [facility] Last Admin: 09/18/21 12:29 Dose: 1 each Documented by: Ondansetron HCl (Ondansetron 4 Mg/2 Ml Inj) 4 mg IV Q8H PRN PRN Reason: Nausea And Vomiting Sodium Chloride (Sodium Chloride 0.9% 10 Ml Flush Syringe) 10 ml IV BID [facility] Last Admin: 09/18/21 12:31 Dose: 10 ml Documented by: Sodium Chloride (Sodium Chloride 0.9% 10 Ml Flush Syringe) 10 ml IV PRN PRN PRN Reason: LINE FLUSH Thiamine HCl (Thiamine 100 Mg Tab) 100 mg PO QDAY [facility] Last Admin: 09/18/21 12:29 Dose: 100 mg Documented by: Physical Examination - Vital Signs Vital Signs: Vital Signs Temp Pulse Resp BP Pulse Ox 98.1 F 100 H 16 105/98 97 09/17/21 17:52 09/17/21 17:52 09/17/21 17:52 09/17/21 17:52 09/17/21 17:52 - Physical Exam Narrative exam: The patient is alert , moves all 4 extremity , there seems to ? Dyskinesia . Results - Laboratory Findings CBC and BMP: 09/17/21 18:13 09/17/21 18:13 Abnormal Lab Findings: Abnormal Labs 09/17/21 09/17/21 18:13 18:13 WBC 11.9 H MCV 95 H Lymph % (Auto) 11.6 L Seg Neutrophils % 81.1 H Seg Neutrophils # 9.7 H Carbon Dioxide 14 L BUN 45 H Creatinine 1.8 H Glucose 133 H AST 50 H Total Protein 8.4 H Assessment and Plan 1. Seizure ( Breakthru - continue Keppra 1000 mg 1 tab BID for now . 2. EEG in Hospital . 3. Patient is clinically having Dyskinesia ( needs list of Home Medications ). 4. Call Back With Questions . 5. Needs a Out Patient Neurology Followup . 6. No new medications have been dispensed . Dr. Snyder
--- NOTE | 2021-09-18 17:31 | Event Note ---
Date: 09/18/21 Brief progress note: 70-year-old male who is a chronic alcoholic. He has history of recurrent seizures with frequent ER visits. He is to take Keppra but not currently. EMS was called likely by his girlfriend for a seizure episode. Patient reportedly had a seizure in route and and ER. Keppra IV started. Patient is currently alert and answers questions appropriately. He reports drinking 2 cups of vodka on the day of admission but alcohol level was zero. He does not appear to have alcohol withdrawal symptoms currently. Tolerating diet. He has some involuntary head movements like dyskinesia. Neurology evaluating. On exam: Restless. Alert and fairly oriented. Skin looks like head movements. Pupils normal. Face medical. Neck supple. No acute respiratory distress, lungs diminished breath sounds. Heart regular rhythm. Abdomen soft and nontender. Extremities no edema. No resting tremors of upper extremities. Assessment: Chronic alcoholic History of recurrent seizures likely from alcohol withdrawal currently off Keppra. Dyskinetic type head movements. ORVILLE creatinine 1.7, likely from dehydration Plan: Neuro checks Seizure precautions Continue Keppra Continue IV hydration for ORVILLE Neurology is evaluating, EEG ordered.
[2021-09-18] MEDS: D5W/0.45% NACL 1,000 ML IV SCH (21:03)
[2021-09-18] MEDS ORDERED: LORazepam 2 MG/ML VIAL IV PRN (21:07)
[2021-09-18] MEDS: levETIRAcetam 500 MG TAB PO SCH (21:24)
[2021-09-18] MEDS: LORazepam 2 MG/ML VIAL IV PRN (21:25)
[2021-09-19] MEDS: LORazepam 2 MG/ML VIAL IV PRN ×3 (02:11→11:37)
[2021-09-19 07:39] LABS: Basophils % (Auto) 0.5 % (0.0-1.8); Eosinophils % (Auto) 0.4 % (0.0-4.3); Hematocrit 38.5 % (35.5-45.6); Hemoglobin 12.7 gm/dl (11.8-15.2); Lymphocytes % (Auto) 11.1 % (13.4-35.0); Mean Corpuscular HGB Conc 33 % (32-34); Mean Corpuscular Volume 92 fl (84-94); Monocytes # (Auto) 0.5 K/mm3 (0.0-0.8); Monocytes % (Auto) 5.5 % (0.0-7.3); Platelet Count 110 K/mm3 (140-440); Red Blood Count 4.18 M/mm3 (3.65-5.03)
[2021-09-19 07:52] LABS: Calcium 9.3 mg/dL (8.4-10.2)
[2021-09-19] MEDS: D5W/0.45% NACL 1,000 ML IV SCH (08:01)
--- NOTE | 2021-09-19 08:24 | Discharge Summary ---
Providers - Providers Date of Admission: 09/18/21 09:00 Attending physician: GENESIS SIMS MD 09/18/21 00:29 Consult to Physician [CONS] Routine Comment: Consulting Provider: LEXIE HORVATH Physician Instructions: Reason For Exam: Seizure 09/19/21 07:42 Occupational Therapy Evaluate and Treat [CONS] Routine Comment: Reason For Exam: debility Physical Therapy Evaluation and Treat [CONS] Routine Comment: Reason For Exam: debility Primary care physician: [employer] Hospitalization Reason for admission: seizure Condition: Stable Hospital course: 70-year-old male who is a chronic alcoholic. He has history of recurrent seizures with frequent ER visits. He is to take Keppra but not currently. EMS was called likely by his girlfriend for a seizure episode. Patient reportedly had a seizure in route and and ER. Keppra IV started. Patient is currently alert and answers questions appropriately. He reports drinking 2 cups of vodka on the day of admission but alcohol level was zero. He does not appear to have alcohol withdrawal symptoms currently. Tolerating diet. He has some involuntary head movements like dyskinesia. Neurology evaluating. On exam: Restless. Alert and fairly oriented. Skin looks like head movements. Pupils normal. Face medical. Neck supple. No acute respiratory distress, lungs diminished breath sounds. Heart regular rhythm. Abdomen soft and nontender. Extremities no edema. No resting tremors of upper extremities. Patient was treated with fluids and Keppra. While he is awake and oriented x3, he has a little Give a fluid 1 liter renal ultrasound Follow with Nephrology outpatient must quit etoh Patient to have PT eval prior to discharge Patient provided counselling for 15 mins. Still with intermittent confusion but an excepted disease process. Must have re-evaluation with escort patients outpatient. (1)ETOH Withdrawal Seizure (2) Acute metabolic encephalopathy (3) ORVILLE (acute kidney injury) with vasomotor nephropath (4) Alcohol abuse (5) Hypertension (6) Dyskinetic type head movements. Disposition: 01 HOME / SELF CARE / HOMELESS Final Discharge Diagnosis (Prints w/discharge instructions): ETOH withdrawal seizure Time spent for discharge: 35 mins Core Measure Documentation - Palliative Care Palliative Care/ Comfort Measures: Not Applicable - Core Measures Any of the following diagnoses?: none Exam - Physical Exam Narrative exam: General appearance: Present: no acute distress, well-nourished - EENT Eyes: Present: PERRL ENT: hearing intact, clear oral mucosa - Neck Neck: Present: supple, normal ROM - Respiratory Respiratory effort: normal Respiratory: bilateral: CTA - Cardiovascular Heart Sounds: Present: S1 & S2. Absent: rub, click - Extremities Extremities: pulses symmetrical, No edema Peripheral Pulses: within normal limits - Abdominal General gastrointestinal: Present: soft, non-tender, non-distended, normal bowel sounds Male genitourinary: Present: normal - Integumentary Integumentary: Present: clear, warm, dry - Musculoskeletal Musculoskeletal: gait normal, strength equal bilaterally - Psychiatric Psychiatric: more awake, knows he is in the hospital, - Neurologic Neurologic: CNII-XII intact, moves all extremities, other (Patient is lethargic) - Constitutional Vitals: Temp Pulse Resp BP Pulse Ox 98.8 F 91 H 20 145/88 98 09/19/21 05:04 09/19/21 05:04 09/19/21 05:04 09/19/21 05:04 09/19/21 05:04 Plan Activity: no driving until cleared by PCP, fall precautions Diet: renal Special Instructions: record daily weights, record daily BP diary, other (must enroll in etoh cessation program) Additional Instructions: recheck renal function in 2-3 days with primary doctor Follow up with: PRIMARY CARE, [Primary Care Provider] - 3-5 Days JOSEFA BOWEN MD [Staff Physician] - 7 Days ROMY PARSONS MD [Staff Physician] - 7 Days Prescriptions: levETIRAcetam [Keppra TAB] 1,000 mg PO BID #60 tab Multivitamin Tab [Multiple Vitamin TAB (Theragran)] 1 each PO QDAY #30 tablet Thiamine [Vitamin B-1] 100 mg PO QDAY #30 tablet
[2021-09-19 08:50] LABS: Albumin 3.6 g/dL (3.9-5); Calcium 9.3 mg/dL (8.4-10.2)
[2021-09-19 08:52] LABS: Basophils % (Auto) 0.5 % (0.0-1.8); Eosinophils % (Auto) 0.3 % (0.0-4.3); Hematocrit 38.8 % (35.5-45.6); Hemoglobin 12.4 gm/dl (11.8-15.2); Lymphocytes # (Auto) 0.8 K/mm3 (1.2-5.4); Lymphocytes % (Auto) 9.8 % (13.4-35.0); Mean Corpuscular HGB Conc 32 % (32-34); Mean Corpuscular Volume 93 fl (84-94); Monocytes # (Auto) 0.5 K/mm3 (0.0-0.8); Red Blood Count 4.17 M/mm3 (3.65-5.03); Red Cell Distribution Width 14.7 % (13.2-15.2)
[2021-09-19] MEDS ORDERED: SODIUM CHLORIDE 0.9% 1000 ML 1,000 ML IV ONE (09:00)
[2021-09-19] MEDS ORDERED: POTASSIUM CHLORIDE ER 20 MEQ TAB PO NR (09:00)
[2021-09-19 09:46] LABS: Platelet Count 115 K/mm3 (140-440)
[2021-09-19] MEDS ORDERED: MAGNESIUM SULFATE 1 GM in SODIUM CHLORIDE 0.9% 50 ML IV ONE (10:00)
[2021-09-19] MEDS: levETIRAcetam 500 MG TAB PO SCH (10:24)
[2021-09-19] MEDS: THIAMINE 100 MG TAB PO SCH (10:25)
[2021-09-19] MEDS: FOLIC ACID 1 MG TAB PO SCH (10:25)
[2021-09-19] MEDS: hydrALAZINE 25 MG TAB PO SCH ×2 (10:25→16:00)
[2021-09-19] MEDS: METOPROLOL TARTRATE 25 MG TAB PO SCH (10:25)
[2021-09-19] MEDS: MULTIVITAMINS ,THERAPEUTIC TAB PO SCH (10:25)
[2021-09-19] MEDS: MAGNESIUM OXIDE 400 MG TAB PO SCH (10:25)
--- NOTE | 2021-09-19 11:13 | Electrocardiograph Report ---
[facility] Test Date: 2021-09-18 Test Time: 08:47:18 Pat Name: JASPREET PASTRANA Department: Room: A366 1 Gender: M 3Rd Pressman: MAURICIO : 1950 Requested By: MARGARET MORA Order Number: [id number] Reading MD: Smith Méndez Measurements Intervals [place] Rate: 75 P: 50 WA: 134 QRS: 10 QRSD: 86 T: 12 QT: 397 QTc: 445 Interpretive Statements Sinus rhythm Consider left ventricular hypertrophy Possible old anterior infarct No previous ECG available for comparison Electronically Signed On 09-19-2021 11:12:51 EST by Smith Méndez
[2021-09-19 19:38] VITALS: BP 125/80
== END 2021-09-19 19:30 | disposition home or self-care (01) ==
LOC: ED 17:38 → 3A 09-18 04:20 → INTOOBSV 09-18 09:00 → OBSVTOIN 09-18 09:00
PROVIDERS: ADMIT Hospitalist; ATTEND Internal Medicine
DX: N17.9 Acute kidney failure, unspecified (principal); G93.41 Metabolic encephalopathy; R56.9 Unspecified convulsions; I10 Essential (primary) hypertension; M10.9 Gout, unspecified; F17.210 Nicotine dependence, cigarettes, uncomplicated; F10.239 Alcohol dependence with withdrawal, unspecified; R29.818 Other symptoms and signs involving the nervous system; Z86.69 Personal history of other diseases of the nervous system and sense organs; Z79.82 Long term (current) use of aspirin
CPT/HCPCS: 36415; 70450; 71045; 80053; 82550; 83735; 84443; 85025; 93005; 96365; 96375; 96376; 97161; 99291; G0378; J1953; J2060; J7030; 80048; 80320; 94640; G0480; J1200

== ENCOUNTER 2022-01-31 21:21 | Emergency (ER) | payer MEDICARE ==
--- NOTE | 2022-02-01 07:36 | Emergency Department Report ---
ED Extremity Problem HPI - General Chief complaint: Extremity Injury, Lower Stated complaint: GOUT, BILATERAL LEG PAIN Time Seen by Provider: 02/01/22 06:28 Source: patient, EMS Mode of arrival: Ambulatory Limitations: No Limitations - History of Present Illness Initial comments: 71 year male with pmhx of HTN, seizure disorder gout and ETOH abuse presents to the ER today with complaints of joint pain secondary to his gout. Patient states that symptoms started about 4 to 5 days ago. He states that he has been having pain in both wrists, plantar aspect of his feet, ankles and knees. Patient states that he does not have any medications for gout. He has not had anything for a few months. He states that he does not have a primary care doctor but has his first appointment with a primary care doctor from February 08. Patient reports associated swelling to his joints. He denies any recent injury. He denies any fever, chills, chest pain, shortness of breath or any additional symptoms at this time. MD Complaint: joint swelling, joint paint -: days(s) (5) - Related Data Previous Rx's Medication Instructions Recorded Last Taken Type Metoprolol [Lopressor TAB] 25 mg PO BID #60 tablet 02/17/17 10/15/19 Rx Folic Acid 1 mg PO DAILY #30 tablet 10/21/19 Unknown Rx Hydralazine HCl 50 mg PO TID #90 tablet 10/21/19 Unknown Rx Magnesium Oxide [Mag-Ox] 400 mg PO BID #60 tablet 11/19/19 Unknown Rx Multivitamin Tab [Multiple Vitamin 1 each PO QDAY #30 tablet 09/19/21 Unknown Rx TAB (Theragran)] Thiamine [Vitamin B-1] 100 mg PO QDAY #30 tablet 09/19/21 Unknown Rx levETIRAcetam [Keppra TAB] 1,000 mg PO BID #60 tab 09/19/21 Unknown Rx Acetaminophen/Codeine [Tylenol 1 tab PO Q6H PRN #10 tab 02/01/22 Unknown Rx /Codeine # 3 tab] predniSONE [Deltasone] 20 mg PO BID #8 tab 02/01/22 Unknown Rx Allergies Allergy/AdvReac Type Severity Reaction Status Date / Time pork derived (porcine) Allergy Mild Rash Verified 09/18/21 17:13 shellfish derived Allergy Hives Verified 07/03/21 08:00 ED Review of Systems ROS: Stated complaint: GOUT, BILATERAL LEG PAIN Other details as noted in HPI Comment: All other systems reviewed and negative Constitutional: denies: chills, fever Eyes: denies: eye pain, eye discharge, vision change ENT: denies: ear pain, throat pain Respiratory: denies: cough, shortness of breath, SOB with exertion, SOB at rest, wheezing Cardiovascular: denies: chest pain, palpitations Gastrointestinal: denies: abdominal pain, nausea, diarrhea, constipation, hematemesis, hematochezia Genitourinary: denies: urgency, dysuria, frequency, hematuria, discharge, testicular pain, testicular mass Musculoskeletal: joint swelling, arthralgia. denies: back pain, myalgia Skin: denies: rash, lesions, change in color, change in hair/nails, pruritus Neurological: denies: headache, weakness, paresthesias, abnormal gait, vertigo Psychiatric: denies: anxiety, depression, auditory hallucinations, visual hallucinations, homicidal thoughts, suicidal thoughts Hematological/Lymphatic: denies: easy bleeding, easy bruising, swollen glands ED Past Medical Hx - Past Medical History Previous Medical History?: Yes Hx Hypertension: Yes Hx Seizures: Yes Additional medical history: Gout - Surgical History Past Surgical History?: No - Social History Smoking Status: Current Every Day Smoker - Medications Home Medications: Home Medications Medication Instructions Recorded Confirmed Last Taken Type Metoprolol [Lopressor TAB] 25 mg PO BID #60 tablet 02/17/17 09/19/21 10/15/19 Rx Folic Acid 1 mg PO DAILY #30 tablet 10/21/19 09/19/21 Unknown Rx Hydralazine HCl 50 mg PO TID #90 tablet 10/21/19 09/19/21 Unknown Rx Magnesium Oxide [Mag-Ox] 400 mg PO BID #60 tablet 11/19/19 09/19/21 Unknown Rx Multivitamin Tab [Multiple Vitamin 1 each PO QDAY #30 tablet 09/19/21 Unknown Rx TAB (Theragran)] Thiamine [Vitamin B-1] 100 mg PO QDAY #30 tablet 09/19/21 Unknown Rx levETIRAcetam [Keppra TAB] 1,000 mg PO BID #60 tab 09/19/21 Unknown Rx Acetaminophen/Codeine [Tylenol 1 tab PO Q6H PRN #10 tab 02/01/22 Unknown Rx /Codeine # 3 tab] predniSONE [Deltasone] 20 mg PO BID #8 tab 02/01/22 Unknown Rx ED Physical Exam - General Limitations: No Limitations General appearance: alert, in no apparent distress - Respiratory Respiratory exam: Present: normal lung sounds bilaterally. Absent: respiratory distress - Cardiovascular Cardiovascular Exam: Present: regular rate, normal rhythm, normal heart sounds - Extremities Exam Extremities exam: Present: full ROM (Range of motion of the feet and the left wrist and fingers mildly reduced secondary to pain.), normal capillary refill (Normal cap refill to the fingers and feet. Dorsalis pedis pulse normal bilateral lower extremity. Radial pulse normal.), other (Patient with diffuse tenderness to both feet more so plantar aspect, and tenderness to palpation to left wrist and second knuckle. Mild swelling noted to left wrist and second knuckle. No erythema.) - Neurological Exam Neurological exam: Present: alert, oriented X3, CN II-XII intact - Psychiatric Psychiatric exam: Present: normal affect, normal mood - Skin Skin exam: Present: intact Critical care attestation.: If time is entered above; I have spent that time in minutes in the direct care of this critically ill patient, excluding procedure time. ED Disposition Clinical Impression: Gouty arthritis Disposition: HOME / SELF CARE / HOMELESS Is pt being admited?: No Does the pt Need Aspirin: No Condition: Stable Instructions: Low-Purine Eating Plan Additional Instructions: I recommend that you take the Tylenol threes, as well as the prednisone as prescribed to help your gout. Keep your appointment with your primary care doctor for February 08. Return to the ER if your symptoms changes or worsens in any way. Prescriptions: predniSONE [Deltasone] 20 mg PO BID #8 tab Acetaminophen/Codeine [Tylenol /Codeine # 3 tab] 1 tab PO Q6H PRN #10 tab PRN Reason: Pain , Severe (7-10) Referrals: PRIMARY CARE, [Primary Care Provider] - 3-5 Days Time of Disposition: 07:43
[2022-02-01] MEDS ORDERED: predniSONE 50 MG TAB PO ONE (07:41)
[2022-02-01] MEDS ORDERED: ACETAMINOPHEN W/CODEINE 300-30 MG TAB PO ONE (07:41)
[2022-02-01 07:49] VITALS: BP 152/95
== END 2022-02-01 08:30 | disposition home or self-care (01) ==
LOC: ED 21:21
DX: M10.9 Gout, unspecified (principal); I10 Essential (primary) hypertension; F17.200 Nicotine dependence, unspecified, uncomplicated; Z91.018 Allergy to other foods
CPT/HCPCS: 99283; J7512